=== PATIENT | female | born 1945 | race Caucasian/White ===

== ENCOUNTER 2024-05-29 09:59 | Outpatient (CLI) | payer MEDICARE, SELFPAY ==
--- NOTE | 2024-05-29 09:45 | CT_ITS ---
FINAL REPORT TECHNIQUE: Thin section axial CT with contrast with multiplanar reconstruction This study was performed with techniques to keep radiation doses as low as reasonably achievable, (ALARA). Individualized dose reduction techniques using automated exposure control or adjustment of mA and/or kV according to the patient's size were employed. CLINICAL HISTORY: dyspnea/tachycardia COMPARISON: None FINDINGS: CTA CHEST: Pulmonary vessels enhance in normal fashion without evidence of embolism. Thoracic aorta shows no dissection or aneurysm. No pulmonary mass or infiltrate is present. There is mild scarring or atelectasis in the right lower lobe. There is no significant pleural effusion. There is no significant pericardial effusion. No mediastinal or hilar adenopathy is present. Multiple healing rib fractures are identified posteriorly. IMPRESSION: 1. No evidence of pulmonary embolism Reviewed, Interpreted and Dictated by Miguel Angel Hayden MD Transcribed by Yen Espinoza Authenticated and [facility]
[2024-05-29 10:06] LABS: Coronavirus 19, PCR Not Detected (NotDetected); Influenza A, PCR Not Detected (NotDetected); Influenza B, PCR Not Detected (NotDetected)
--- NOTE | 2024-05-29 10:15 | XR_ITS ---
FINAL REPORT CLINICAL HISTORY: dyspnea/tachycardia FINDINGS: 2 views of the chest were obtained . The heart is normal in size. The mediastinum is within normal limits. The lungs are clear. There is no pneumothorax. Osseous structures are unremarkable. IMPRESSION: No acute cardiopulmonary process. Reviewed, Interpreted and Dictated by Miguel Angel Hayden MD Transcribed by Eulalia Sue Authenticated and [facility]
[2024-05-29 10:18] LABS: Basophils # 0.1 K/mm3 (0-0.2); Basophils % 0.6 % (0.1-2.0); Eosinophils # 0.2 K/mm3 (0.0-0.4); Eosinophils % 1.9 % (0.1-12.0); Hematocrit 38.9 % (37.0-47.0); Hemoglobin 12.7 g/dL (12.2-16.2); Lymphocytes # 1.2 K/mm3 (0.7-4.5); Lymphocytes % 15.6 % (10-50); Mean Corpuscular HGB Conc 32.6 g/dL (31.8-35.4); Mean Corpuscular Hemoglobin 29.6 pg (27.0-31.2); Mean Corpuscular Volume 90.7 fl (81-99); Mean Platelet Volume 8.9 fl (7.4-10.4); Monocytes # 0.8 K/mm3 (0.1-1.0); Monocytes % 10.8 % (1.7-9.3); Neutrophils # 5.4 K/mm3 (1.8-7.8); Neutrophils % 70.7 % (37.0-80.0); Platelet Count 212 K/mm3 (142-424); Red Blood Count 4.29 M/mm3 (4.20-5.40); Red Cell Distribution Width 14.2 % (11.5-17.5); White Blood Count 7.7 K/mm3 (4.8-10.8)
[2024-05-29 10:33] LABS: Alanine Aminotransferase 728 U/L (12-78); Anion Gap 10.7 mEq/L (5-15); Bilirubin,Direct 0.9 mg/dl (0.0-0.4); Bilirubin,Indirect 0.5 mg/dL (0.0-0.9); Bilirubin,Total 1.4 mg/dl (0.2-1.3); Bilirubin,Unconjugated 0.5 mg/dL (0.0-1.1); Blood Urea Nitrogen 21 mg/dl (7-17); Calcium 8.9 mg/dl (8.4-10.2); Carbon Dioxide 24 mmol/L (22.0-30.0); Chloride 106 mmol/L (98-107); Estimated Glomerular Filt Rate 48 ml/min (>60); GFR (African American) 58 ML/MIN (>60); Glucose 120 mg/dl (74-100); Magnesium 1.8 mg/dl (1.6-2.3); Potassium 3.7 mmoL/L (3.5-5.1); Sodium 137 mmol/L (136-145); Total Protein,Serum 6.9 g/dl (6.3-8.2)
[2024-05-29 10:34] LABS: Albumin Level 4.2 g/dl (3.5-5.0); Alkaline Phosphatase 133 U/L (38-126); Chol/HDL Ratio 2.4 (1-3.5); Cholesterol 99 mg/dl (140-200); HDL Cholesterol 42 mg/dl (40-60); Triglycerides 91 mg/dl (30-150); VLDL Cholesterol 18 mg/dL (0-40)
[2024-05-29 10:45] LABS: NT Pro Brain Natriuretic Pep. 166 pg/mL (0-450)
[2024-05-29 10:51] LABS: Aspartate Amino Transferase 800 U/L (14-36); Direct LDL Cholesterol < 30.00 mg/dL (100-129); Troponin I < 0.01 ng/ml (0.00-0.034)
[2024-05-29] MEDS: IOPAMIDOL-370 (76%);100ML BOTTLE 80 ML IV (10:57)
[2024-05-29] MEDS: 0.9 % SODIUM CHLORIDE 50 ML VIAL IV (10:57)
[2024-05-29] MEDS: SODIUM CHLORIDE 0.9% 10ML SYR (RAD ONLY) 10 ML IV (10:57)
[2024-05-29 11:04] LABS: Thyroid Stimulating Hormone 1.59 uIU/mL (0.465-4.68)
[2024-05-29 11:41] LABS: Free T4 (Free Thyroxine) 1.91 ng/dl (0.78-2.19)
[2024-05-29 12:10] LABS: D-Dimer 1.13 ug/mL (0.0-0.5)
== END 2024-05-29 23:59 | disposition home or self-care (01) ==
PROVIDERS: PCP Nurse Practitioner Family; Visit Provider Nurse Practitioner Family
DX: I26.99 Other pulmonary embolism without acute cor pulmonale (principal); R06.00 Dyspnea, unspecified; R00.0 Tachycardia, unspecified; R42 Dizziness and giddiness; M10.9 Gout, unspecified; I10 Essential (primary) hypertension; I82.409 Acute embolism and thrombosis of unspecified deep veins of unspecified lower extremity; R05.9 Cough, unspecified; E78.2 Mixed hyperlipidemia
CPT/HCPCS: 71046; 71275; 80048; 80061; 80076; 83735; 83880; 84439; 84443; 84484; 85025; 85378; 87636; Q9967

== ENCOUNTER 2024-05-29 15:05 | Observation (INO) | payer MEDICARE, SELFPAY ==
[2024-05-29] VITALS (12 sets, daily range): BP systolic 117–156; BP diastolic 67–99; PULSE 105–127; RESP 13–30; TEMP 37.1–37.6; O2SAT 93–96; BMI 26.0; BMI 26.1
--- NOTE | 2024-05-29 15:18 | ECG_ITS ---
APPROVED REPORT Exam: Resting ECG HR:111 bpm ECG Measurements Heart Rate 111 AXES HI 128 P 78 QRSd 77 QRS 68 QT 339 T 80 QTc 405 Conclusion SINUS TACHYCARDIA LOW QRS VOLTAGE IN PRECORDIAL LEADS [QRS DEFLECTION < 1.0 mV IN CHEST LEADS] POSSIBLE INFERIOR MYOCARDIAL INFARCTION , PROBABLY OLD [30 ms Q WAVE IN II/aVF] ABNORMAL RHYTHM ECG UNCONFIRMED REPORT Electronically signed by : NAHEED TIRADO, 05/30/2024 05:53:09
--- NOTE | 2024-05-29 15:25 | US_ITS ---
FINAL REPORT TECHNIQUE: Multiple transverse and longitudinal images CLINICAL HISTORY: transaminitis, hyperbilirubinemia COMPARISON: None FINDINGS: The gallbladder shows no wall thickening, distention or stone disease. No biliary ductal dilatation is appreciated. No fluid collections are seen. Limited portions of the right liver are unremarkable. Right kidney is normal in size. An extrarenal pelvis noted with mild right hydronephrosis. IMPRESSION: Right extrarenal pelvis with mild right hydronephrosis. Reviewed, Interpreted and Dictated by Miguel Angel Hayden MD Transcribed by Estrella Franks Authenticated and [facility]
[2024-05-29 15:26] LABS: Basophils % 0.6 % (0.1-2.0); Eosinophils # 0.1 K/mm3 (0.0-0.4); Eosinophils % 1.5 % (0.1-12.0); Hematocrit 35.9 % (37.0-47.0); Hemoglobin 11.8 g/dL (12.2-16.2); Lymphocytes # 1.4 K/mm3 (0.7-4.5); Lymphocytes % 18.9 % (10-50); Mean Corpuscular HGB Conc 32.9 g/dL (31.8-35.4); Mean Corpuscular Hemoglobin 29.4 pg (27.0-31.2); Mean Corpuscular Volume 89.5 fl (81-99); Mean Platelet Volume 9.1 fl (7.4-10.4); Monocytes # 0.9 K/mm3 (0.1-1.0); Monocytes % 12.7 % (1.7-9.3); Neutrophils # 4.7 K/mm3 (1.8-7.8); Neutrophils % 65.7 % (37.0-80.0); Platelet Count 205 K/mm3 (142-424); Red Blood Count 4.01 M/mm3 (4.20-5.40); Red Cell Distribution Width 14.2 % (11.5-17.5); White Blood Count 7.2 K/mm3 (4.8-10.8)
--- NOTE | 2024-05-29 15:26 | [facility]H.EDGENADL ---
Discharge Plan Disposition Patient Disposition: Admitted Condition: Fair Clinical Impressions Clinical Impression: Transaminitis, Acute UTI Hydronephrosis Qualifiers: Hydronephrosis type: unspecified Qualified Code(s): N13.30 - Unspecified hydronephrosis URI (upper respiratory infection) Qualifiers: URI type: unspecified viral URI Qualified Code(s): J06.9 - Acute upper respiratory infection, unspecified Conjunctivitis Qualifiers: Conjunctivitis type: acute Acute conjunctivitis type: unspecified Laterality: bilateral Qualified Code(s): H10.33 - Unspecified acute conjunctivitis, bilateral Discharge ED Provider: Paulette Skelton General Adult HPI General Chief complaint: Recheck/Abnormal Lab/Rx Stated complaint: sent by bello Gann Time Seen by Provider: 05/29/24 15:09 Mode of Arrival: Wheelchair Source of Information: Patient and Relative Description of Symptoms (Recalled from ER Triage Doc. by RN): States they were seen by Yg and sent to the er for further evaluation related to elevated AST and ALT levels. Patient with no complaints at this time. History of Present Illness HPI narrative: This patient is an 79-year-old female with a history of rheumatoid arthritis, osteoarthritis, hypertension, chronic back pain, peripheral neuropathy presenting to the emergency department for evaluation with concern for abnormal labs. Patient states that she started getting sick on Tuesday with cough, congestion, wheezing. She had 1 day of nausea, vomiting, and diarrhea yesterday, but otherwise has not had any significant abdominal symptoms. She has had significant shortness of breath with exertion and wheezing, so she had been seeing primary care and was referred to cardiology. Cardiology noted concern over the patient's appearance and high heart rate, as she has been tachycardic in the 100s to 1 teens consistently even at rest. They sent patient for outpatient lab evaluation and CTA of the chest, and patient has no blood clot in her lungs or large pneumonia, but she did have significant elevated liver enzymes. This is obtained from medical record review. Patient denies any known problems with her liver. She denies any significant abdominal pain. She does still have her gallbladder. She denies excess Tylenol use, but she does state that she is been taking DayQuil, NyQuil, and an occasional Tylenol as needed. She notes that she is not coming close to exceeding 4000 mg in a day. She is not a drinker and never has been. Aside from the cough, wheezing, dyspnea on exertion, high heart rate, and overall generally feeling unwell with extreme body aches, patient denies any other concerns or complaints at this time. Related Data Home Medications ?Medication ?Instructions ?Recorded ?Confirmed allopurinol 300 mg tablet 300 mg PO DAILY 05/29/24 05/29/24 amitriptyline 100 mg tablet 100 mg PO DAILY 05/29/24 05/29/24 aspirin 81 mg tablet,delayed 81 mg PO DAILY 05/29/24 05/29/24 release cholecalciferol (vitamin D3) 25 25 mcg PO DAILY 05/29/24 05/29/24 mcg (1,000 unit) capsule colchicine 0.6 mg tablet 0.6 mg PO BID 05/29/24 05/29/24 etodolac 200 mg capsule 200 mg PO Q8H PRN Arthritis Pain 05/29/24 05/29/24 metoprolol succinate 50 mg 50 mg PO ONCE 05/29/24 05/29/24 tablet,extended release 24 hr Allergies Allergy/AdvReac Type Severity Reaction Status Date / Time gabapentin Allergy Verified 05/29/24 09:00 pregabalin (From Lyrica) Allergy Verified 05/29/24 09:00 ropinirole Allergy Verified 05/29/24 09:00 [facility] Disclaimer: The information contained in this section may have been updated after the patient was seen, as this information can be updated by other users. Medical History Sinus tachycardia Wheezing Cough Pulmonary emboli Diverticulitis Gout HTN (hypertension) DVT (deep venous thrombosis) Surgical History Femur fracture, right Abnormal colonoscopy History of hysterectomy Family History Father Cancer Brother Cancer Social History (Updated 05/29/24 @ 21:03 by Letty New RN) Smoking Status: Never smoker alcohol intake: never substance use type: denies use current occupational status: retired Travel in the last 8 weeks: Inside the [place] Have you lived/traveled outside US in past 30 days?: No Contact w/someone who lives/traveled outside US past 30 days?: No Exposure to someone with infectious disease in past 14 days?: No Do you have a fever (greater than 100.4 F or 38 C)?: No Have you tested positive for COVID-19: No Exposed to someone with COVID-19 in past 14 days?: No Do you have a sore throat?: No Do you have a cough?: No Do you have any weakness?: No Do you have any diarrhea?: No Are you experiencing any unusual bleeding?: No Do you have any muscle aches/pain?: No Do you have any abdominal pain?: No Are you experiencing loss of taste or smell?: No Other Medical History Have you received the Pneumonia Vaccine: Yes ROS Obtained: Yes All systems reviewed & no additional complaints except as documented Physical Exam General General appearance: alert and in no apparent distress Head Head exam: atraumatic and normocephalic Eye Eye exam: Present PERRL, EOMI, conjunctival redness and conjunctival injection ENT ENT exam: Present normal exam, normal oropharynx, mucous membranes moist and normal external ear exam Neck Neck exam: Present normal inspection, full ROM and trachea midline; Absent tenderness Chest Chest inspection: Present normal inspection and symmetric chest wall rise; Absent tenderness Respiratory Respiratory exam: Present normal lung sounds bilaterally and other (harsh, frequent dry cough); Absent respiratory distress, wheezes, stridor or accessory muscle use Cardiovascular Cardiovascular exam: Present normal rhythm and tachycardia Abdominal Exam Abdominal exam: Present soft; Absent distention, tenderness or guarding Extremities Exam Extremities exam: Present normal inspection, full ROM and normal capillary refill; Absent tenderness or edema Back Exam Back exam: Present normal inspection and full ROM; Absent tenderness Neurological Exam Neurological exam: Present alert, oriented X3, CN II-XII intact and normal gait; Absent motor sensory deficit Psychiatric Psychiatric exam: Present normal affect and normal mood Skin Skin exam: Present warm and dry Medical Decision Making Medical Records Medical records reviewed: Yes I reviewed the patient's medical records. Screening: Per USPSTF and CDC recommendations, given the prevalence of disease in our region, it is our hospital?s policy to screen for HIV and viral Hepatitis for all patients aged 18 and over and those with ongoing risk factors. Magdy Inquiry Pt receiving controlled substance: No Vital Signs: 05/29/24 15:14 05/29/24 15:30 05/29/24 16:04 Temperature 99.0 F Temperature Source Oral Pulse Rate 110 H 115 H Pulse Rate [Radial] 114 H Respiratory Rate 16 20 Blood Pressure 131/75 127/83 Blood Pressure [Right Arm] 117/86 Blood Pressure Mean [Right Arm] 96 Blood Pressure Source [Right Arm] Automatic Cuff Blood Pressure Position [Right Arm] Sitting 02 Sat by Pulse Oximetry 96 94 L 95 Oxygen Delivery Method Room Air Room Air Room Air 05/29/24 16:30 05/29/24 17:00 05/29/24 17:23 Temperature Temperature Source Pulse Rate 105 H 114 H 117 H Pulse Rate [Radial] Respiratory Rate 19 19 Blood Pressure 133/67 133/77 142/82 H Blood Pressure [Right Arm] Blood Pressure Mean [Right Arm] Blood Pressure Source [Right Arm] Blood Pressure Position [Right Arm] 02 Sat by Pulse Oximetry 93 L 94 L 94 L Oxygen Delivery Method Room Air Room Air Room Air 05/29/24 18:00 05/29/24 18:30 05/29/24 19:13 Temperature Temperature Source Pulse Rate 115 H 107 H Pulse Rate [Radial] 127 H Respiratory Rate 16 13 16 Blood Pressure 144/84 H 156/89 H Blood Pressure [Right Arm] Blood Pressure Mean [Right Arm] Blood Pressure Source [Right Arm] Blood Pressure Position [Right Arm] 02 Sat by Pulse Oximetry 96 95 94 L Oxygen Delivery Method Room Air Room Air Room Air 05/29/24 19:44 Temperature 98.7 F Temperature Source Pulse Rate 111 H Pulse Rate [Radial] Respiratory Rate 30 H Blood Pressure 150/89 H Blood Pressure [Right Arm] Blood Pressure Mean [Right Arm] Blood Pressure Source [Right Arm] Blood Pressure Position [Right Arm] 02 Sat by Pulse Oximetry Oxygen Delivery Method Room Air Lab Data Lab results reviewed: Yes I reviewed the patient's lab results. Lab Results 05/29/24 15:18: WBC 7.2, RBC 4.01 L, Hgb 11.8 L, Hct 35.9 L, MCV 89.5, MCH 29.4, MCHC 32.9, RDW 14.2, Plt Count 205, MPV 9.1, Neut % (Auto) 65.7, Lymph % (Auto) 18.9, Winkler % (Auto) 12.7 H, Eos % (Auto) 1.5, Baso % (Auto) 0.6, Neut # (Auto) 4.7, Lymph # (Auto) 1.4, Winkler # (Auto) 0.9, Eos # (Auto) 0.1, Baso # (Auto) 0.0, ESR 38 H, Sodium 135 L, Potassium 3.5, Chloride 104, Carbon Dioxide 21 L, Anion Gap 13.5, BUN 21 H, Creatinine 1.10 H, Estimated Creat Clear 42, Estimated GFR 48 L, Est GFR ( Amer) 58 L, Glucose 124 H, Calcium 8.5, Total Bilirubin 0.7, AST 835 H*, ALT 824 H*, Alkaline Phosphatase 130 H, Total Creatine Kinase 97, Troponin I < 0.01, C-Reactive Protein 121.1 H, NT-Pro-B Natriuret Pep 119, Total Protein 6.6, Albumin 4.0, Globulin 2.6, Albumin/Globulin Ratio 1.5, Lipase 50, Acetaminophen 11, HCV Ab BRITNEY w/Rflx PCR Qn Negative, HIV Ag/Ab Combo Qual Negative 05/29/24 15:32: VBG pH 7.42 H, VBG pCO2 27.3 L, VBG pO2 99.3 H, VBG HCO3 17.2 L, VBG Total CO2 18.0 L, VBG O2 Saturation 97.9 H, VBG Base Excess -7.4 L, VBG Lactic Acid 2.5 H 05/29/24 16:04: Chlamy pneumoniae PCR Not detected, Adenovirus (PCR) Not detected, B. pertussis DNA (PCR) Not detected, Coronavirus OC43 (PCR) Not detected, Coronavirus HKU1 (PCR) Not detected, Coronavirus 229E (PCR) Not detected, SARS-CoV-2 (PCR) Not detected, Coronavirus NL63 (PCR) Not detected, Human Metapneumovir PCR Not detected, Influenza A (H1) PCR Not detected, Influ A (H1N1/09) PCR Not detected, Influenza A (H3) PCR Not detected, Influenza Type A (PCR) Not detected, Influenza Type B (PCR) Not detected, M. pneumoniae (PCR) Not detected, Parainfluenza 1 (PCR) Not detected, Parainfluenza 2 (PCR) Not detected, Parainfluenza 3 (PCR) Not detected, Parainfluenza 4 (PCR) Not detected, RSV (PCR) Not detected, Entero/Rhino (PCR) Not detected 05/29/24 17:05: Urine Color Yellow, Urine Appearance Slightly cloudy, Urine pH 6.0, Ur Specific Mckinney 1.010, Urine Protein Trace A, Urine Glucose (UA) Negative, Urine Ketones Negative, Urine Blood Negative, Urine Nitrate Negative, Urine Bilirubin 3+ A, Urine Urobilinogen 0.2, Ur Leukocyte Esterase 2+ A, Urine RBC Occasional, Urine WBC 20-50, Ur Squamous Epith Cells 5-10, Urine Bacteria 2+ 05/29/24 18:14: Troponin I < 0.01 05/29/24 15:18 05/29/24 15:18 Orders (Tests/Meds): ED MEDICATIONS Generic Name Dose Route Start Last Admin Trade Name Freq PRN Reason Stop Dose Admin Azithromycin 250 mg 05/30/24 09:00 Azithromycin 250mg Tablet PO 06/09/24 08:59 DAILY PROSPER Famotidine 20 mg 05/29/24 21:00 05/29/24 20:46 Famotidine 20mg/2ml Vial IV 06/28/24 20:59 20 mg BID PROSPER Administration Guaifenesin 600 mg 05/29/24 22:00 05/29/24 21:52 Guaifenesin 600 Mg Tab.Er.12h PO 06/28/24 21:59 600 mg BID PROSPER Administration Guaifenesin 10 ml 05/29/24 21:46 Guaifenesin/Dextromethorphan 200mg/20mg 10ml Udc PO 06/28/24 21:45 Q4HP PRN Cough Ceftriaxone Sodium 1 gm/ 50 mls @ 100 mls/hr 05/30/24 09:00 Sodium Chloride IV 06/09/24 08:59 Q24H PROSPER Ketorolac Tromethamine 15 mg 05/29/24 19:58 Ketorolac 30mg/Ml Vial IV 06/03/24 19:57 Q6HP PRN Moderate Pain (4-6) Levalbuterol HCl 1.25 mg 05/29/24 20:04 Levalbuterol 1.25mg/3ml Neb IH 06/28/24 20:03 TIDP PRN Shortness Of Breath Morphine Sulfate 2 mg 05/29/24 19:58 Morphine 2mg/Ml Syringe IV 06/28/24 19:57 Q2HP PRN Severe Pain (7-10) Ondansetron HCl 4 mg 05/29/24 19:58 Ondansetron 4mg/2ml Vial IV 06/28/24 19:57 Q8HP PRN Nausea Sodium Chloride 8 ml 05/29/24 19:58 Sodium Chloride 0.9% 10ml Vial IV 06/28/24 19:57 NEEDED PRN dilute famotidine Tobramycin Sulfate 0.05 ml 05/29/24 20:05 05/29/24 20:46 Tobramycin Opthalmic Solution 5ml OP 05/29/24 20:06 Not Given ONCE ONE Discontinued Medications Generic Name Dose Route Start Last Admin Trade Name Freq PRN Reason Stop Dose Admin Amitriptyline HCl 100 mg 05/29/24 17:12 05/29/24 17:56 Amitriptyline 50mg Tablet PO 05/29/24 17:13 100 mg ONCE ONE Administration Erythromycin 0.25 gm 05/29/24 17:11 05/29/24 17:57 Erythromycin Base 3.5 Gm Oint...G. OP 05/29/24 17:12 0.25 gm ONCE ONE Administration Ceftriaxone Sodium 2 gm/ 100 mls @ 200 mls/hr 05/29/24 18:51 05/29/24 19:37 Sodium Chloride IV 05/29/24 19:20 200 mls/hr ONCE ONE Administration Iopamidol 75 ml 05/29/24 17:16 05/29/24 17:18 Iopamidol-370 (76%);100ml Bottle IV 05/29/24 17:17 75 ml ONCE ONE Administration Sodium Chloride 10 ml 05/29/24 17:16 05/29/24 17:18 Sodium Chloride 0.9% 10ml Syr (Rad Only) IV 05/29/24 17:17 10 ml ONCE ONE Administration ORDERS Category Date Time Status CT abdomen pelvis w con Stat Cat Scan 05/29/24 16:52 Completed US RUQ [US abdomen limited] Stat Exams 05/29/24 15:25 Completed Acetaminophen Stat Lab 05/29/24 15:18 Completed BNP [NT Pro Brain Natriuretic Pep.] Stat Lab 05/29/24 15:18 Completed CK [Creatine Kinase] Stat Lab 05/29/24 15:18 Completed CRP [C-Reactive Protein] Stat Lab 05/29/24 15:18 Completed Complete Blood Count Auto Diff Stat Lab 05/29/24 15:18 Completed Comprehensive Metabolic Panel Stat Lab 05/29/24 15:18 Completed ESR [Erythrocyte Sedimentation Rate] Stat Lab 05/29/24 15:18 Completed Full Resp Panel w/COVID ([facility]) Routine Lab 05/29/24 16:04 Completed HIV Combo Stat Lab 05/29/24 15:18 Completed Hepatitis C Ab Qual. W/ RFX Stat Lab 05/29/24 15:18 Completed Hepatitis Panel Stat Lab 05/29/24 15:18 Received Lipase Stat Lab 05/29/24 15:18 Completed Trop I [Troponin I] Stat Lab 05/29/24 15:18 Completed Troponin I Q3H Lab 05/29/24 18:14 Completed Troponin I Q3H Lab 05/29/24 21:45 Completed UA [Urinalysis and Microscopic] Stat Lab 05/29/24 17:05 Completed Urine Culture Stat Micro 05/29/24 17:05 Received VBG [Venous Blood Gas] Stat RT 05/29/24 15:32 Completed ECG Data Tracing #1: I reviewed this ECG and interpreted as documented below: Sinus tachycardia with a ventricular to [address] changes concerning for ischemia. Normal axis and intervals ECG initial impression date: 05/29/24 ECG initial impression time: 15:20 Medical Decision Narrative: In summary, this patient is a 79-year-old female presenting to the Emergency Department for evaluation of cough, congestion, dyspnea on exertion, body aches since Tuesday and abnormal labs obtained by cardiology today (transaminitis). Differential diagnoses considered include but are not limited to viral hepatitis, acetaminophen toxicity, cholecystitis, biliary outflow obstruction, rhabdomyolysis, among others. Ruling out the most morbid conditions drove assessment. It should be noted patient's history includes hypertension, rheumatoid arthritis, restless leg syndrome, chronic back pain which may or may not be at goal therapy. This complicates all aspects of care by increasing patient's risk for morbidity. I reviewed patient's past medical records and noted outpatient evaluation by cardiology, outpatient labs, chest x-ray and CTA of the chest obtained earlier today. Please see HPI for further details. Patient has significant transaminitis, no PE, no large focal pneumonia On exam, the patient is lying in bed in no acute distress. She is tachycardic but otherwise vitals are reassuring on cardiac telemetry. She has dry cough and bilateral conjunctival injection and irritation. She is not tachypneic, hypoxic, or in any distress. Cardiopulmonary exam demonstrates clear lung sounds, abdominal exam is benign with no focal tenderness. no significant lower extremity edema. Workup included lab evaluation including repeat CMP, hepatitis panel, CK, troponin, BNP, respiratory panel, acetaminophen level. I also obtained a right upper quadrant ultrasound. Patient denies excessive use of Tylenol, stating she only has used it maybe once a day as well as small doses of NyQuil and DayQuil. She notes that she is not coming close to a daily max of 4000 mg. She is not concerned for Tylenol toxicity. EKG obtained demonstrates sinus tachycardia but otherwise reassuring. I independently interpreted right upper quadrant ultrasound prior to the radiologist read and noted right-sided hydronephrosis, but the gallbladder looks normal. Please see their read for final interpretation. Given hydronephrosis without known etiology, I decided to obtain CT abdomen and pelvis with IV contrast. I independently interpreted this prior to radiology read and noted hydronephrosis without obvious obstructive stone. Please see radiology read for final interpretation. Labs were obtained that demonstrated mild anemia. She has no significant leukocytosis. She has mild respiratory alkalosis, mildly elevated lactic acid. Creatinine mildly elevated at 1.1 without baseline for comparison. Liver enzymes remain in the 800s, bilirubin normal at 0.7. Inflammatory markers are elevated. Full respiratory panel is negative. urinalysis is concerning for infection with 2+ leukocyte esterase, 20-50 white blood cells, 2+ bacteria. I ordered her home amitriptyline at her recommendation, and I also ordered erythromycin ophthalmic ointment for her eyes. I ordered IV Rocephin for the patient's UTI. Given her significant transaminitis, I feel she would benefit from admission for further evaluation and management. I had an interactive discussion with the hospitalist who admitted the patient in stable condition. Critical Care Critical Care Time Critical Care Time: No
[2024-05-29 15:40] LABS: VBG Base Excess -7.4 mmol/L (-2.4-2.3); VBG HCO3 17.2 mmol/L (23-30); VBG Oxygen Saturation 97.9 % (50-70); VBG PCO2 27.3 mmol/L (35-51); VBG PH 7.42 mmol/L (7.31-7.41); VBG PO2 99.3 mmol/L (28-40)
[2024-05-29 15:52] LABS: Lactate Venous 2.5 mmol/L (0.4-2.0)
[2024-05-29 16:01] LABS: NT Pro Brain Natriuretic Pep. 119 pg/mL (0-450)
[2024-05-29 16:11] LABS: Adenovirus,PCR Not Detected (NotDetected); Bordetella Pertussis Not Detected (NotDetected); Chlamydophila Pneumoniae, PCR Not Detected (NotDetected); Coronavirus 19, PCR Not Detected (NotDetected); Coronavirus 229E Not Detected (NotDetected); Coronavirus NL63 Not Detected (NotDetected); Coronavirus OC43 Not Detected (NotDetected); Coronovirus HKU1,PCR Not Detected (NotDetected); Human Metapneumovirus Not Detected (NotDetected); Influenza A, PCR Not Detected (NotDetected); Influenza AH1, 2009 Not Detected (NotDetected); Influenza AH1, PCR Not Detected (NotDetected); Influenza AH3,PCR Not Detected (NotDetected); Influenza B, PCR Not Detected (NotDetected); Mycoplasma Pneumoniae, PCR Not Detected (NotDetected); Parainfluenza 1, PCR Not Detected (NotDetected); Parainfluenza 2, PCR Not Detected (NotDetected); Parainfluenza 3, PCR Not Detected (NotDetected); Parainfluenza 4, PCR Not Detected (NotDetected); Respiratory Syncytial Virus Not Detected (NotDetected); Rhinovirus/Enterovirus Not Detected (NotDetected)
[2024-05-29 16:28] LABS: Creatine Kinase 97 U/L (30-135)
[2024-05-29 16:34] LABS: HIV Combo NEGATIVE (Negative)
[2024-05-29 16:41] LABS: Hepatitis C Ab Qual. W/ RFX NEGATIVE (Negative)
[2024-05-29 16:46] LABS: Chloride 104 mmol/L (98-107); Sodium 135 mmol/L (136-145)
[2024-05-29 16:47] LABS: Erythrocyte Sedimentation Rate 38 mm/hr (0-30); Potassium 3.5 mmoL/L (3.5-5.1)
[2024-05-29 16:49] LABS: Alkaline Phosphatase 130 U/L (38-126); Bilirubin,Total 0.7 mg/dl (0.2-1.3); Blood Urea Nitrogen 21 mg/dl (7-17); Carbon Dioxide 21 mmol/L (22.0-30.0); Creatinine Clearance Estimated 42 mL/min (50-200); Estimated Glomerular Filt Rate 48 ml/min (>60); GFR (African American) 58 ML/MIN (>60); Lipase 50 U/L (23-300); Total Protein,Serum 6.6 g/dl (6.3-8.2)
[2024-05-29 16:50] LABS: Acetaminophen 11 ug/ml (10-30); Calcium 8.5 mg/dl (8.4-10.2); Glucose 124 mg/dl (74-100)
--- NOTE | 2024-05-29 16:52 | CT_ITS ---
PROCEDURE INFORMATION: Exam: CT Abdomen And Pelvis With Contrast Exam date and time: 05/29/2024 5:16 PM Age: 79 years old Clinical indication: Abnormal findings; Abnormal radiologic finding of the abdomen; Radiologic exam and body structure: Abd US; Additional info: Abnormal renal US, transaminitis TECHNIQUE: Imaging protocol: Computed tomography of the abdomen and pelvis with contrast. Radiation optimization: All CT scans at this facility use at least one of these dose optimization techniques: automated exposure control; mA and/or kV adjustment per patient size (includes targeted exams where dose is matched to clinical indication); or iterative reconstruction. Contrast material: ISOVUE; Contrast volume: 75 ml; Contrast route: IV; COMPARISON: US ABDOMEN LIMITED 05/29/2024 3:29 PM FINDINGS: Lungs: Dependent bilateral lung base opacities favor atelectasis. Diaphragm: A small sliding hiatal hernia is present. Liver: There is diffuse hypoattenuation of the liver compatible with mild hepatic steatosis. Gallbladder and biliary ducts: Normal. No calcified stones. No ductal dilation. Pancreas: Normal. No ductal dilation. Spleen: Normal. No splenomegaly. Adrenal glands: Normal. No mass. Kidneys and ureters: Left renal Bosniak 1 cystic lesion that is homogeneous and fluid density (-9-20 HU), no septations or calcifications, having moe smooth and thin. Measurement is 0.8 cm. No follow-up recommended. Stomach and bowel: Diverticula are scattered throughout the colon without inflammatory changes. Appendix: No evidence of appendicitis. 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 Vasculature: Moderate calcific atherosclerotic disease of the abdominal aorta without aneurysmal dilatation is present. Lymph nodes: Unremarkable. No enlarged lymph nodes. Urinary bladder: Unremarkable as visualized. Reproductive: Unremarkable as visualized. Bones/joints: Postsurgical changes of the right hip compatible with IM nail and cannulated screw fixation of a healed femoral neck fracture. Moderate loss of intervertebral disc space with degenerative changes involving lower thoracic and lumbar spine greatest from L3 through L5. Soft tissues: See Bones/joints finding. 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 COMMENTS: Consistent with the [employer]'s Incidental Findings Committee white paper (J Am Beverly Radiol 2018): Any incidental renal lesion less than 1 cm or classified as too small to characterize, or any incidental cystic renal lesion characterized as simple-appearing, is likely benign. No follow-up imaging is recommended for these lesions per consensus recommendations based on imaging criteria.
[2024-05-29 17:05] LABS: Anion Gap 13.5 mEq/L (5-15); Troponin I < 0.01 ng/ml (0.00-0.034)
[2024-05-29 17:12] LABS: Alanine Aminotransferase 824 U/L (12-78)
[2024-05-29 17:14] LABS: Aspartate Amino Transferase 835 U/L (14-36)
[2024-05-29 17:17] LABS: Microscopic, Urine URINE MICROSCOPIC (MICROSCOPIC)
[2024-05-29 17:17] LABS: Albumin/Globulin Ratio 1.5 (1.1-1.8); Globulin 2.6 g/dL (1.3-3.2)
[2024-05-29] MEDS: IOPAMIDOL-370 (76%);100ML BOTTLE 75 ML IV (17:18)
[2024-05-29] MEDS: SODIUM CHLORIDE 0.9% 10ML SYR (RAD ONLY) 10 ML IV (17:18)
[2024-05-29] MEDS: AMITRIPTYLINE 50MG TABLET 100 MG PO (17:56)
[2024-05-29] MEDS: ERYTHROMYCIN BASE 3.5 GM OINT...G. OP (17:57)
--- NOTE | 2024-05-29 18:05 | PC.NURSE ---
rounded on pt, no needs at this time.
[2024-05-29 18:27] LABS: Appearance,Urine Slightly Cloudy (Clear); Color,Urine Yellow (Yellow); Protein,Urine Trace (Negative)
[2024-05-29 18:28] LABS: Blood, Urine Negative (Negative); Glucose,Urine (UA) Negative (Negative); Ketones,Urine Negative (Negative); Nitrate,Urine Negative (Negative)
[2024-05-29 18:29] LABS: Bacteria,Urine 2+ /lpf; Bilirubin,Urine 3+ (Negative); Leukocyte Esterase,Urine 2+ (Negative); RBC,Urine Occasional #/hpf (0-3); Urobilinogen,Urine 0.2 EU/dl (0.2); WBC,Urine 20-50 #/hpf (0-3)
--- NOTE | 2024-05-29 18:52 | PC.NURSE ---
I notified HS that the pt is being admitted to for transaminitis.
[2024-05-29 19:18] LABS: Troponin I < 0.01 ng/ml (0.00-0.034)
[2024-05-29] MEDS: CEFTRIAXONE SODIUM 2 GM in 0.9 % SODIUM CHLORIDE 100 ML IV (19:37)
[2024-05-29 19:49] LABS: Reflex Lactic Add Lactic Reflex
--- NOTE | 2024-05-29 19:53 | P.HP_ITS ---
<Statement entered by Stuart Temple MD - 05/30/24 17:23> Rounded on patient after nurse practitioner. Personally examined and interviewed patient. Agree with exam findings and care plan as documented. Unclear etiology at this time. Concern for viral illness. Will add measles panel due to cough, coryza, conjunctivitis. GI evaluating for hepatitis. Continuing empiric antibiotics. CBC, CMP, magnesium ordered for the morning. Transaminitis with AST and ALT above 800. No pain on initial exam. Continues to necessitate inpatient management. History of Present Illness *Admission Date: 05/29/24 *Reason for visit:: Elevated liver functions, urinary tract infection, cough with upper respira *History of present illness: This 79-year-old female, that is a non-smoker nondrinker. Has had increasing swollen eyes cough starting on Tuesday progressively worsening. She also has some nausea and vomiting. Had diarrhea yesterday but notes that she has had problems controlling her bowels for a couple of months now. Patient was noted with 8 fractured ribs back last fall was treated with antibiotics and ended up with a PE. I have no documentation of my computer system about this but the patient and family let me know that everything had resolved Patient also takes care of of a great grandchild that was 4 years old. The family notes that most of them have been ill for about 2 weeks with upper respiratory viral type symptoms. The patient has noted she has been having significant shortness of breath with exertion and wheezing and was seen by cardiology. Patient also noted with urinary tract infection, swollen edematous eyes with red conjunctivitis and drainage. Long history of rheumatoid or osteoarthritis with nodules to the fingers Long history of gout. Patient on medication for pain and gout that can interfere with liver function. Patient is on chronic beta- boyd. Do agree with the ER doctor and Dr. Temple that the patient needs to be admitted. Will place her on the floor and keep her on monitoring analyst related to tachycardia and frequent PVCs, plan to repeat labs looking for source of infection. Will hold NSAIDs and gout medications as in rare cases they can affect liver function. Will check PT/INR and vitamin K levels. [facility] Disclaimer: The information contained in this section may have been updated after the devi ent was seen, as this information can be updated by other users. Medical History Sinus tachycardia Wheezing Cough Pulmonary emboli Diverticulitis Gout HTN (hypertension) DVT (deep venous thrombosis) Surgical History Femur fracture, right Abnormal colonoscopy History of hysterectomy Family History Father Cancer Brother Cancer Social History (Updated 05/29/24 @ 21:03 by Letty New RN) Smoking Status: Never smoker alcohol intake: never substance use type: denies use current occupational status: retired Travel in the last 8 weeks: Inside the [place] Have you lived/traveled outside US in past 30 days?: No Contact w/someone who lives/traveled outside US past 30 days?: No Exposure to someone with infectious disease in past 14 days?: No Do you have a fever (greater than 100.4 F or 38 C)?: No Have you tested positive for COVID-19: No Exposed to someone with COVID-19 in past 14 days?: No Do you have a sore throat?: No Do you have a cough?: No Do you have any weakness?: No Do you have any diarrhea?: No Are you experiencing any unusual bleeding?: No Do you have any muscle aches/pain?: No Do you have any abdominal pain?: No Are you experiencing loss of taste or smell?: No Other Medical History Have you received the Flu Vaccine for this season: Yes Have you received the Pneumonia Vaccine: Yes Review of Systems Review of Systems Review of systems:: pertinent systems reviewed and negative unless documented below Review of systems (narrative): Talk with the patient and family in the room, quite a delight to talk to very interactive. Patient noting that she has had all of her updated immunizations that she can remember she needed She notes a history of having diarrhea have not been able to control her bowels for approximately 2 months but urine is in good control. Patient notes there has been no significant weight changes in the past 6 months Constitutional Constitutional: Reports as per HPI, Reports body ache(s), Reports fatigue and Reports weakness Eyes Eyes: Reports as per HPI, Reports irritation and Reports eye pain Comments: Red puffy eyes irritated conjunctive for 3 to 4 days and ENT Ears, Nose, Mouth, and Throat: Reports as per HPI and Reports post nasal drip Comments: Patient notes her voice is a little raspy but denies sore throat *Cardiovascular Cardiovascular: Reports as per HPI and Reports dyspnea Comments: Patient denies chest pain *Respiratory Respiratory: Reports as per HPI, Reports cough, Reports dyspnea and Reports wheezing Comments: Patient notes showing symptoms of upper respiratory infection for the last several days *Gastrointestinal Gastrointestinal: Reports as per HPI, Reports change in stool character and Reports fecal incontinence *Genitourinary Genitourinary: Reports as per HPI *Musculoskeletal Musculoskeletal: Reports as per HPI and Reports myalgias Comments: Noting that the patient has several nodules to the joints of the fingers. Long history of gout and arthritis Integumentary/Breasts Skin/Breast: Reports as per HPI Comments: Patient denies any recent unusual bruising, notes sometimes she wakes up with small scratch bleeding bennett on her forearms unsure why *Neurologic Neurologic: Reports as per HPI and Reports weakness Comments: Denies any changes in balance or gait. Psychiatric Psychiatric: Reports as per HPI Comments: Patient with family in room they interact well seem great supportive of each other Endocrine Endocrine: Reports fatigue Hematologic/Lymphatic Hematologic/Lymphatic: Reports as per HPI Allergic/Immunologic Allergic/Immunologic: Reports as per HPI and Reports wheezing Meds Home Medications and Allergies Home Medications ?Medication ?Instructions ?Recorded ?Confirmed ?Type allopurinol 300 mg tablet 300 mg PO DAILY 05/29/24 05/29/24 History amitriptyline 100 mg tablet 100 mg PO DAILY 05/29/24 05/29/24 History aspirin 81 mg tablet,delayed 81 mg PO DAILY 05/29/24 05/29/24 History release cholecalciferol (vitamin D3) 25 25 mcg PO DAILY 05/29/24 05/29/24 History mcg (1,000 unit) capsule colchicine 0.6 mg tablet 0.6 mg PO BID 05/29/24 05/29/24 History etodolac 200 mg capsule 200 mg PO Q8H PRN Arthritis Pain 05/29/24 05/30/24 History metoprolol succinate 50 mg 50 mg PO DAILY 05/29/24 05/30/24 History tablet,extended release 24 hr New Prescriptions to Start Prescriptions: Allergies Allergy/AdvReac Type Severity Reaction Status Date / Time gabapentin Allergy Verified 05/29/24 09:00 pregabalin (From Lyrica) Allergy Verified 05/29/24 09:00 ropinirole Allergy Verified 05/29/24 09:00 Exam Data for Last 24 hours Vital signs and Labs for Last 24 Hours: Temp Pulse Resp BP Pulse Ox O2 Del Method 98.7 F 111 H 30 H 150/89 H 95 Room Air 05/29/24 19:44 05/29/24 19:44 05/29/24 19:44 05/29/24 19:44 05/29/24 18:30 05/29/24 19:44 Laboratory Results - last 24 hr 05/29/24 15:18: WBC 7.2, RBC 4.01 L, Hgb 11.8 L, Hct 35.9 L, MCV 89.5, MCH 29.4, MCHC 32.9, RDW 14.2, Plt Count 205, MPV 9.1, Neut % (Auto) 65.7, Lymph % (Auto) 18.9, [place] % (Auto) 12.7 H, Eos % (Auto) 1.5, Baso % (Auto) 0.6, Neut # (Auto) 4.7, Lymph # (Auto) 1.4, [place] # (Auto) 0.9, Eos # (Auto) 0.1, Baso # (Auto) 0.0, ESR 38 H, Sodium 135 L, Potassium 3.5, Chloride 104, Carbon Dioxide 21 L, Anion Gap 13.5, BUN 21 H, Creatinine 1.10 H, Estimated Creat Clear 42, Estimated GFR 48 L, Est GFR ( Amer) 58 L, Glucose 124 H, Calcium 8.5, Total Bilirubin 0.7, AST 835 H*, ALT 824 H*, Alkaline Phosphatase 130 H, Total Creatine Kinase 97, Troponin I < 0.01, NT-Pro-B Natriuret Pep 119, Total Protein 6.6, Albumin 4.0, Globulin 2.6, Albumin/Globulin Ratio 1.5, Lipase 50, Acetaminophen 11, HCV Ab BRITNEY w/Rflx PCR Qn Negative, HIV Ag/Ab Combo Qual Negative 05/29/24 15:32: VBG pH 7.42 H, VBG pCO2 27.3 L, VBG pO2 99.3 H, VBG HCO3 17.2 L, VBG Total CO2 18.0 L, VBG O2 Saturation 97.9 H, VBG Base Excess -7.4 L, VBG Lactic Acid 2.5 H 05/29/24 16:04: Chlamy pneumoniae PCR Not detected, Adenovirus (PCR) Not detected, B. pertussis DNA (PCR) Not detected, Coronavirus OC43 (PCR) Not detected, Coronavirus HKU1 (PCR) Not detected, Coronavirus 229E (PCR) Not detected, SARS-CoV-2 (PCR) Not detected, Coronavirus NL63 (PCR) Not detected, Human Metapneumovir PCR Not detected, Influenza A (H1) PCR Not detected, Influ A (H1N1/09) PCR Not detected, Influenza A (H3) PCR Not detected, Influenza Type A (PCR) Not detected, Influenza Type B (PCR) Not detected, M. pneumoniae (PCR) Not detected, Parainfluenza 1 (PCR) Not detected, Parainfluenza 2 (PCR) Not detected, Parainfluenza 3 (PCR) Not detected, Parainfluenza 4 (PCR) Not detected, RSV (PCR) Not detected, Entero/Rhino (PCR) Not detected 05/29/24 17:05: Urine Color Yellow, Urine Appearance Slightly cloudy, Urine pH 6.0, Ur Specific [place] 1.010, Urine Protein Trace A, Urine Glucose (UA) Negative, Urine Ketones Negative, Urine Blood Negative, Urine Nitrate Negative, Urine Bilirubin 3+ A, Urine Urobilinogen 0.2, Ur Leukocyte Esterase 2+ A, Urine RBC Occasional, Urine WBC 20-50, Ur Squamous Epith Cells 5-10, Urine Bacteria 2+ 05/29/24 18:14: Troponin I < 0.01 I & O for Last 24 hours: Intake & Output 05/27/24 05/28/24 05/29/24 05/30/24 05:59 05:59 05:59 05:59 Weight 147 lb Radiology Reports for the Last 24 Hours: Radiology shows some hydronephrosis possible little bit of stenosis in one of the kidneys., That the liver looks relatively normal some fatty liver infiltrat es gallbladder appears normal but quite large. Really no acute findings Constitutional Constitutional: mild distress, average body habitus and cooperative *Routine HEENT Exam Head: Present normocephalic and atraumatic Eye: Present EOMI, PERRL, normal accommodation, scleral injection, periorbital swelling and periorbital tenderness ENT: Present mucous membranes moist, oropharynx clear and other (Small amount of white postnasal drip) *Routine Neck Exam Neck: Present supple, full ROM and trachea midline Comments: No abnormal lymph nodes found Routine Chest/Breast/Axilla Exam Comments: No chest wall tenderness found patient reports no difficulty or draining from breast *Routine Respiratory Exam Respiratory: Present decreased breath sounds, CTA bilaterally, normal respiratory effort, able to speak in complete sentences and symmetric chest movement Comments: Did not hear any wheezing patient been laying in bed she is able to take a deep breath but on deep inspiration has coughing fit. *Routine Cardiovascular Exam Cardiovascular: Present RRR, Normal S1, Normal S2 and tachycardia Comments: Patient is tacky with several PVCs on monitor but basically with a regular rhythm *Routine Abdominal Exam Abdominal: Present soft and normoactive bowel sounds Comments: Examined the abdomen found no tenderness or enlarged organs *Routine Rectal Exam Rectal:: deferred *Routine Genitalia Exam Genitalia:: deferred *Routine Extremities Exam Extremities: Present pulses intact and normal capillary refill Comments: Examination of arms or legs find normal extremities. Good capillary refill no edema Routine Back/Spine/Pelvis Exam Back/Spine: Present full ROM Comments: Patient just noted generalized lower back pain but nothing new. Is able to sit up and twist from [id number] without difficulty did not stand her during exam *Routine Skin Exam Skin: Present intact, dry and warm Comments: No wounds or abnormal bruising found *Routine Neurological Exam Neurological: Present alert, oriented X3, CN II-XII intact, normal reflexes, normal tone, vision grossly intact, hearing grossly intact and normal speech Comments: No neurological deficits found Routine Psychiatric Exam Psychiatric: Present normal affect, normal thought process, cooperative, good insight and good judgment Comments: Very friendly lady easy to engage H&P: Result Impressions 1. Viral syndrome with conjunctivitis, 2. Abnormal liver function with history of not been able to clear out bowels for couple month 3. Long history of gout and arthritis. Medications that could affect liver function over long periods of time 4. Tachycardia with PVCs Imaging and Cardiology CT scan - abdomen: Status: image reviewed by me Additional comments: Some hydronephrosis of the kidney. But really the abdominal exam appears to be normal there is does not appear to be anything acute Assessment and Plan *Assessment and plan (1) Abnormal liver function: Status: Acute Category: Medical Code(s): R94.5 - Abnormal results of liver function studies (2) URI (upper respiratory infection): Status: Acute Qualifiers: URI type: unspecified viral URI Qualified Code(s): J06.9 - Acute upper respiratory infection, unspecified Category: Medical Code(s): J06.9 - Acute upper respiratory infection, unspecified (3) Acute UTI: Status: Acute Category: Medical Code(s): N39.0 - Urinary tract infection, site not specified (4) Cough: Status: Acute Qualifiers: Cough type: acute Qualified Code(s): R05.1 - Acute cough Category: Medical Code(s): R05.9 - Cough, unspecified (5) Conjunctivitis: Status: Acute Qualifiers: Acute conjunctivitis type: unspecified Conjunctivitis type: acute Laterality: bilateral Qualified Code(s): H10.33 - Unspecified acute conjunctivitis, bilateral Category: Medical Code(s): H10.9 - Unspecified conjunctivitis (6) Hydronephrosis: Status: Acute Qualifiers: Hydronephrosis type: unspecified Qualified Code(s): N13.30 - Unspecified hydronephrosis Category: Medical Code(s): N13.30 - Unspecified hydronephrosis (7) Tachycardia: Status: Acute Category: Medical Code(s): R00.0 - Tachycardia, unspecified (8) HTN (hypertension): Status: Acute Qualifiers: Hypertension type: primary hypertension Qualified Code(s): I10 - Essential (primary) hypertension Category: Medical Code(s): I10 - Essential (primary) hypertension Plan 1. Patient will be admitted to the floor due to her condition we will keep on constant telemetry and pulse ox.. Question cause of this upper respiratory infection with conjunctivitis appears to be viral syndrome.. 2. Elevated liver function test unknown cause checking for hepatitis question whether viral in nature. Also stopping her gout medicine and her pain medicine. As both of those in rare occasions can cause liver damage. 3. Will continue to monitor labs add antibiotic tobramycin for both eyes in case this is bacterial conjunctivitis. Continue on other antibiotics in cases there is an antibiotic cause for this workup the loose stool which she has been having a problem with to find out if there is any bacterial infection in the stool. 4. At this time the patient does feel bad but she is stable., We will keep her closely monitored because unsure of what is going on to make sure she is not decompensating since she is really only started to become ill since Tuesday. Also noting mild hydronephrosis of one of the kidneys. Appears to be chronic is probably not part of this. Will have to do later on follow-up with urology for them to evaluate if anything needs to be done for it.
--- NOTE | 2024-05-29 20:23 | PC.NURSE ---
Patient arrived to floor via wheelchair from ED at 19:51.
[2024-05-29] MEDS: FAMOTIDINE 20MG/2ML VIAL 20 MG IV (20:46)
[2024-05-29 21:17] LABS: Lactic Acid Follow Up (RFLX 1) 1.2 mmol/L (0.7-2.1)
[2024-05-29] MEDS: LEVALBUTEROL 1.25MG/3ML NEB 1.25 MG IH (21:47)
[2024-05-29] MEDS: guaiFENesin 600 MG TAB.ER.12H PO (21:52)
[2024-05-29 23:02] LABS: C-Reactive Protein 121.1 mg/L (0-4)
[2024-05-29 23:41] LABS: Troponin I < 0.01 ng/ml (0.00-0.034)
[2024-05-30] VITALS (10 sets, daily range): BP systolic 125–135; BP diastolic 66–92; PULSE 85–122; RESP 16–20; TEMP 36.8–37.7; O2SAT 91–95; BMI 26.4
[2024-05-30] MEDS: GUAIFENESIN/DEXTROMETHORPHAN 200MG/20MG 10ML UDC 10 ML PO ×2 (00:12→04:37)
--- NOTE | 2024-05-30 04:07 | PC.NURSE ---
Addendum entered by Letty New RN 05/30/24 06:27: Patient's daughter stated this morning that she noticed the patient was beginning to have some confusion. Upon initial assessment this shift, the patient was alert and oriented x4. However, the daughter stated that the patient was becoming acutely disoriented, specifically about where she was at ( home instead of hospital), and she talked during her sleep. Original Note: Ms Tigist Crain was newly admitted this shift on behalf of the documented diagnoses transaminitis, conjunctivitis, and a UTI. ALT: 824 + AST: 835. Patient's eyes were assessed; eyelids were red and swollen; discharge from eyes noted to be yellow in color. An antibiotic ointment was applied in the ER for the patient (ordered ointment Tobrex -upon arrival to the second floor- was not available to be given this shift); sterile normal saline flushes were provided to cleanse the patient's conjunctiva. Intravenous Pepcid and Mucinex was administered per MAR this shift. Robitussin DM was given once per MAR for patient's persistent, dry cough, post receiving PRN Xopenex (at 21:47) this shift. Oxygen saturations > 90% on room air. Admission assessments and home medication reconciliation were completed by me. Upon auscultation of her lungs, diminished but clear lung sounds were heard; heart and bowel sounds were within normal findings. Sinus tachycardia on telemetry. Patient also reported having diarrhea recently. However, the patient has not had a bowel movement this shift, therefore diarrhea/stool sample remains uncollected thus far; she verbalized an understanding of the significance for obtaining a stool sample, when possible. Patient reported that she has a hiatal hernia that occasionally creates difficulty with swallowing. Nodules noted to patient's phalanges (hands/feet). Patient has moderate swelling in her bilateral lower extremities as well. Patient ambulates with at least x1 assistance due to an unsteady gait; a walker was provided for the patient because she is used to using a walker at home as well. At this time, the patient is resting in bed with eyes closed and respirations are even/unlabored. She does not have any further complaints. Her daughter has remained at the bedside this shift. No acute changes noted thus far. Call light within reach.
[2024-05-30 07:13] LABS: Eosinophils # 0.1 K/mm3 (0.0-0.4); Monocytes # 0.9 K/mm3 (0.1-1.0)
[2024-05-30 07:14] LABS: Albumin Level 3.6 g/dl (3.5-5.0); Albumin/Globulin Ratio 1.4 (1.1-1.8); Alkaline Phosphatase 106 U/L (38-126); Anion Gap 8.3 mEq/L (5-15); Aspartate Amino Transferase 641 U/L (14-36); Bilirubin,Total 0.7 mg/dl (0.2-1.3); Blood Urea Nitrogen 16 mg/dl (7-17); Calcium 8.6 mg/dl (8.4-10.2); Carbon Dioxide 24 mmol/L (22.0-30.0); Chloride 105 mmol/L (98-107); Chol/HDL Ratio 3.8 (1-3.5); Cholesterol 98 mg/dl (140-200); Creatinine Clearance Estimated 47 mL/min (50-200); Estimated Glomerular Filt Rate 53 ml/min (>60); GFR (African American) 64 ML/MIN (>60); Gamma Glutamyl Transpeptidase 75 U/L (12-43); Globulin 2.6 g/dL (1.3-3.2); Glucose 129 mg/dl (74-100); HDL Cholesterol 26 mg/dl (40-60); Magnesium 1.6 mg/dl (1.6-2.3); Potassium 3.3 mmoL/L (3.5-5.1); Sodium 134 mmol/L (136-145); Total Protein,Serum 6.2 g/dl (6.3-8.2); Triglycerides 132 mg/dl (30-150); VLDL Cholesterol 26 mg/dL (0-40)
[2024-05-30 07:15] LABS: Lactic Acid 1.3 mmol/L (0.7-2.1)
[2024-05-30 07:20] LABS: INR 1.16 (0.9-1.1); Prothrombin Time 12.8 seconds (10.1-12.5)
[2024-05-30 07:22] LABS: Alanine Aminotransferase 812 U/L (12-78)
[2024-05-30 07:25] LABS: Direct LDL Cholesterol 38.79 mg/dL (100-129)
[2024-05-30 07:29] LABS: Basophils % 0.6 % (0.1-2.0); Eosinophils % 1.6 % (0.1-12.0); Hematocrit 32.2 % (37.0-47.0); Lymphocytes # 1.2 K/mm3 (0.7-4.5); Lymphocytes % 18.4 % (10-50); Mean Corpuscular HGB Conc 32.6 g/dL (31.8-35.4); Mean Corpuscular Hemoglobin 29.1 pg (27.0-31.2); Mean Corpuscular Volume 89.2 fl (81-99); Mean Platelet Volume 9.6 fl (7.4-10.4); Monocytes % 13.8 % (1.7-9.3); Neutrophils # 4.4 K/mm3 (1.8-7.8); Platelet Count 195 K/mm3 (142-424); Red Blood Count 3.61 M/mm3 (4.20-5.40); Red Cell Distribution Width 14.2 % (11.5-17.5); White Blood Count 6.7 K/mm3 (4.8-10.8)
[2024-05-30 08:13] LABS: HBsAg Screen Negative (Negative); HCV Ab Non Reactive (Non Reactive); Hep A Ab, IGM Negative (Negative); Hep B Core Ab, IgM Negative (Negative)
--- NOTE | 2024-05-30 08:23 | HMH.PHAINT1 ---
Pharmacy Intervention Comments: HOME MEDICATION LIST VERIFIED USING LIST FROM OUTPATIENT PHARMACY AND DISCUSSIONS WITH DAUGHTER
[2024-05-30 08:30] LABS: Hemoglobin 10.5 g/dL (12.2-16.2)
[2024-05-30] MEDS: AZITHROMYCIN 250MG TABLET 250 MG PO (08:37)
[2024-05-30] MEDS: guaiFENesin 600 MG TAB.ER.12H PO ×2 (08:37→20:47)
[2024-05-30] MEDS: CEFTRIAXONE 1 GM 1 GM in 0.9 % SODIUM CHLORIDE 50 ML IV (08:38)
--- NOTE | 2024-05-30 09:08 | EXP.GE.CONS ---
History of Present Illness *Admission Date: 05/29/24 *History of present illness: Mrs. Crain is an 79-year-old female who is admitted for elevated liver chemistries, nausea, vomiting and diarrhea. She had dehydration and tachycardia. This began on Tuesday and she developed dizziness, nausea, vomiting and diarrhea on Tuesday. She went to her primary care physician and had tachycardia and was sent to cardiology (Dr. Paez). At that visit, blood work was obtained and patient's transaminases were elevated with ALT level of 728. This morning her ALT is 812. Her alkaline phosphatase is normal at 106 and total bilirubin 0.7. Abdominal imaging including ultrasound and CAT scan were obtained. There was no gallbladder wall thickening gallstones or biliary ductal dilation. She did have moderate right hydronephrosis. The patient has had improvement of her nausea and vomiting. She reports no abdominal pain. She has received IV hydration. Last evening, she had some confusion and daughter states that she was trying to find her bedroom and then got back into bed backwards. She was also talking about needing to get prepared for her Tuesday school class. This was out of the norm. The patient reports no alcohol use. [facility] Disclaimer: The information contained in this section may have been updated after the patient was seen, as this information can be updated by other users. Medical History Sinus tachycardia Wheezing Cough Pulmonary emboli Diverticulitis Gout HTN (hypertension) DVT (deep venous thrombosis) Surgical History Femur fracture, right Abnormal colonoscopy History of hysterectomy Family History Father Cancer Brother Cancer Social History (Updated 05/29/24 @ 21:03 by Letty New RN) Smoking Status: Never smoker alcohol intake: never substance use type: denies use current occupational status: retired Travel in the last 8 weeks: Inside the [place] Have you lived/traveled outside US in past 30 days?: No Contact w/someone who lives/traveled outside US past 30 days?: No Exposure to someone with infectious disease in past 14 days?: No Do you have a fever (greater than 100.4 F or 38 C)?: No Have you tested positive for COVID-19: No Exposed to someone with COVID-19 in past 14 days?: No Do you have a sore throat?: No Do you have a cough?: No Do you have any weakness?: No Do you have any diarrhea?: No Are you experiencing any unusual bleeding?: No Do you have any muscle aches/pain?: No Do you have any abdominal pain?: No Are you experiencing loss of taste or smell?: No Review of Systems Constitutional Constitutional: Reports weakness *Neurologic Neurologic: Reports as per HPI and Reports weakness Meds Home Medications and Allergies Home Medications ?Medication ?Instructions ?Recorded ?Confirmed ?Type allopurinol 300 mg tablet 300 mg PO DAILY 05/29/24 05/29/24 History amitriptyline 100 mg tablet 100 mg PO DAILY 05/29/24 05/29/24 History aspirin 81 mg tablet,delayed 81 mg PO DAILY 05/29/24 05/29/24 History release cholecalciferol (vitamin D3) 25 25 mcg PO DAILY 05/29/24 05/29/24 History mcg (1,000 unit) capsule colchicine 0.6 mg tablet 0.6 mg PO BID 05/29/24 05/29/24 History etodolac 200 mg capsule 200 mg PO Q8H PRN Arthritis Pain 05/29/24 05/30/24 History metoprolol succinate 50 mg 50 mg PO DAILY 05/29/24 05/30/24 History tablet,extended release 24 hr New Prescriptions to Start Prescriptions: Allergies Allergy/AdvReac Type Severity Reaction Status Date / Time gabapentin Allergy Verified 05/29/24 09:00 pregabalin (From Lyrica) Allergy Verified 05/29/24 09:00 ropinirole Allergy Verified 05/29/24 09:00 Exam (Inpt) Vital signs and Labs for Last 24 Hours: Temp Pulse Resp BP Pulse Ox O2 Del Method 99.2 F 122 H 20 134/68 91 L Room Air 05/30/24 07:53 05/30/24 07:53 05/30/24 07:53 05/30/24 07:53 05/30/24 07:53 05/30/24 07:53 Laboratory Results - last 24 hr 05/29/24 15:18: WBC 7.2, RBC 4.01 L, Hgb 11.8 L, Hct 35.9 L, MCV 89.5, MCH 29.4, MCHC 32.9, RDW 14.2, Plt Count 205, MPV 9.1, Neut % (Auto) 65.7, Lymph % (Auto) 18.9, [place] % (Auto) 12.7 H, Eos % (Auto) 1.5, Baso % (Auto) 0.6, Neut # (Auto) 4.7, Lymph # (Auto) 1.4, [place] # (Auto) 0.9, Eos # (Auto) 0.1, Baso # (Auto) 0.0, ESR 38 H, Sodium 135 L, Potassium 3.5, Chloride 104, Carbon Dioxide 21 L, Anion Gap 13.5, BUN 21 H, Creatinine 1.10 H, Estimated Creat Clear 42, Estimated GFR 48 L, Est GFR ( Amer) 58 L, Glucose 124 H, Calcium 8.5, Total Bilirubin 0.7, AST 835 H*, ALT 824 H*, Alkaline Phosphatase 130 H, Total Creatine Kinase 97, Troponin I < 0.01, C-Reactive Protein 121.1 H, NT-Pro-B Natriuret Pep 119, Total Protein 6.6, Albumin 4.0, Globulin 2.6, Albumin/Globulin Ratio 1.5, Lipase 50, Acetaminophen 11, Hepatitis A IgM Ab Negative, Hep Bs Antigen Negative, Hep B Core IgM Ab Negative, Hepatitis C Antibody Non reactive, HCV Ab BRITNEY w/Rflx PCR Qn Negative, HCV RNA PCR Test Info Comment, HIV Ag/Ab Combo Qual Negative 05/29/24 15:32: VBG pH 7.42 H, VBG pCO2 27.3 L, VBG pO2 99.3 H, VBG HCO3 17.2 L, VBG Total CO2 18.0 L, VBG O2 Saturation 97.9 H, VBG Base Excess -7.4 L, VBG Lactic Acid 2.5 H 05/29/24 16:04: Chlamy pneumoniae PCR Not detected, Adenovirus (PCR) Not detected, B. pertussis DNA (PCR) Not detected, Coronavirus OC43 (PCR) Not detected, Coronavirus HKU1 (PCR) Not detected, Coronavirus 229E (PCR) Not detected, SARS-CoV-2 (PCR) Not detected, Coronavirus NL63 (PCR) Not detected, Human Metapneumovir PCR Not detected, Influenza A (H1) PCR Not detected, Influ A (H1N1/09) PCR Not detected, Influenza A (H3) PCR Not detected, Influenza Type A (PCR) Not detected, Influenza Type B (PCR) Not detected, M. pneumoniae (PCR) Not detected, Parainfluenza 1 (PCR) Not detected, Parainfluenza 2 (PCR) Not detected, Parainfluenza 3 (PCR) Not detected, Parainfluenza 4 (PCR) Not detected, RSV (PCR) Not detected, Entero/Rhino (PCR) Not detected 05/29/24 17:05: Urine Color Yellow, Urine Appearance Slightly cloudy, Urine pH 6.0, Ur Specific [place] 1.010, Urine Protein Trace A, Urine Glucose (UA) Negative, Urine Ketones Negative, Urine Blood Negative, Urine Nitrate Negative, Urine Bilirubin 3+ A, Urine Urobilinogen 0.2, Ur Leukocyte Esterase 2+ A, Urine RBC Occasional, Urine WBC 20-50, Ur Squamous Epith Cells 5-10, Urine Bacteria 2+ 05/29/24 18:14: Troponin I < 0.01 05/29/24 20:40: Lactate 1.2 05/29/24 21:45: Troponin I < 0.01 05/30/24 06:41: WBC 6.7, RBC 3.61 L, Hgb 10.5 L D, Hct 32.2 L, MCV 89.2, MCH 29.1, MCHC 32.6, RDW 14.2, Plt Count 195, MPV 9.6, Neut % (Auto) 65.0, Lymph % (Auto) 18.4, [place] % (Auto) 13.8 H, Eos % (Auto) 1.6, Baso % (Auto) 0.6, Neut # (Auto) 4.4, Lymph # (Auto) 1.2, [place] # (Auto) 0.9, Eos # (Auto) 0.1, Baso # (Auto) 0.0, PT 12.8 H, INR 1.16 H, Sodium 134 L, Potassium 3.3 L, Chloride 105, Carbon Dioxide 24, Anion Gap 8.3, BUN 16, Creatinine 1.00, Estimated Creat Clear 47, Estimated GFR 53 L, Est GFR ( Amer) 64, Glucose 129 H, Lactate 1.3, Calcium 8.6, Magnesium 1.6 D, Total Bilirubin 0.7, GGT 75 H, AST 641 H*, ALT 812 H*, Alkaline Phosphatase 106, Total Protein 6.2 L, Albumin 3.6, Globulin 2.6, Albumin/Globulin Ratio 1.4, Triglycerides 132, Cholesterol 98 L, LDL Cholesterol Direct 38.79 L, VLDL Cholesterol 26, HDL Cholesterol 26 L, Cholesterol/HDL Ratio 3.8 H I & O for Labs for Last 24 Hours: Intake & Output 05/27/24 05/28/24 05/29/24 05/30/24 23:59 23:59 23:59 23:59 Intake Total 751 / 751 Output Total 0 / 0 0 / 0 Balance 0 / 277 751 / 751 Weight 147 lb 5 oz 149 lb Comments:: Normoactive bowel sounds, soft, benign abdomen, no distention, nontender, no hernias or masses Results Labs 05/30/24 06:41 05/30/24 06:41 Labs: Laboratory Results - last 24 hr 05/29/24 15:18: WBC 7.2, RBC 4.01 L, Hgb 11.8 L, Hct 35.9 L, MCV 89.5, MCH 29.4, MCHC 32.9, RDW 14.2, Plt Count 205, MPV 9.1, Neut % (Auto) 65.7, Lymph % (Auto) 18.9, [place] % (Auto) 12.7 H, Eos % (Auto) 1.5, Baso % (Auto) 0.6, Neut # (Auto) 4.7, Lymph # (Auto) 1.4, [place] # (Auto) 0.9, Eos # (Auto) 0.1, Baso # (Auto) 0.0, ESR 38 H, Sodium 135 L, Potassium 3.5, Chloride 104, Carbon Dioxide 21 L, Anion Gap 13.5, BUN 21 H, Creatinine 1.10 H, Estimated Creat Clear 42, Estimated GFR 48 L, Est GFR ( Amer) 58 L, Glucose 124 H, Calcium 8.5, Total Bilirubin 0.7, AST 835 H*, ALT 824 H*, Alkaline Phosphatase 130 H, Total Creatine Kinase 97, Troponin I < 0.01, C-Reactive Protein 121.1 H, NT-Pro-B Natriuret Pep 119, Total Protein 6.6, Albumin 4.0, Globulin 2.6, Albumin/Globulin Ratio 1.5, Lipase 50, Acetaminophen 11, Hepatitis A IgM Ab Negative, Hep Bs Antigen Negative, Hep B Core IgM Ab Negative, Hepatitis C Antibody Non reactive, HCV Ab BRITNEY w/Rflx PCR Qn Negative, HCV RNA PCR Test Info Comment, HIV Ag/Ab Combo Qual Negative 05/29/24 15:32: VBG pH 7.42 H, VBG pCO2 27.3 L, VBG pO2 99.3 H, VBG HCO3 17.2 L, VBG Total CO2 18.0 L, VBG O2 Saturation 97.9 H, VBG Base Excess -7.4 L, VBG Lactic Acid 2.5 H 05/29/24 16:04: Chlamy pneumoniae PCR Not detected, Adenovirus (PCR) Not detected, B. pertussis DNA (PCR) Not detected, Coronavirus OC43 (PCR) Not detected, Coronavirus HKU1 (PCR) Not detected, Coronavirus 229E (PCR) Not detected, SARS-CoV-2 (PCR) Not detected, Coronavirus NL63 (PCR) Not detected, Human Metapneumovir PCR Not detected, Influenza A (H1) PCR Not detected, Influ A (H1N1/09) PCR Not detected, Influenza A (H3) PCR Not detected, Influenza Type A (PCR) Not detected, Influenza Type B (PCR) Not detected, M. pneumoniae (PCR) Not detected, Parainfluenza 1 (PCR) Not detected, Parainfluenza 2 (PCR) Not detected, Parainfluenza 3 (PCR) Not detected, Parainfluenza 4 (PCR) Not detected, RSV (PCR) Not detected, Entero/Rhino (PCR) Not detected 05/29/24 17:05: Urine Color Yellow, Urine Appearance Slightly cloudy, Urine pH 6.0, Ur Specific [place] 1.010, Urine Protein Trace A, Urine Glucose (UA) Negative, Urine Ketones Negative, Urine Blood Negative, Urine Nitrate Negative, Urine Bilirubin 3+ A, Urine Urobilinogen 0.2, Ur Leukocyte Esterase 2+ A, Urine RBC Occasional, Urine WBC 20-50, Ur Squamous Epith Cells 5-10, Urine Bacteria 2+ 05/29/24 18:14: Troponin I < 0.01 05/29/24 20:40: Lactate 1.2 05/29/24 21:45: Troponin I < 0.01 05/30/24 06:41: WBC 6.7, RBC 3.61 L, Hgb 10.5 L D, Hct 32.2 L, MCV 89.2, MCH 29.1, MCHC 32.6, RDW 14.2, Plt Count 195, MPV 9.6, Neut % (Auto) 65.0, Lymph % (Auto) 18.4, [place] % (Auto) 13.8 H, Eos % (Auto) 1.6, Baso % (Auto) 0.6, Neut # (Auto) 4.4, Lymph # (Auto) 1.2, [place] # (Auto) 0.9, Eos # (Auto) 0.1, Baso # (Auto) 0.0, PT 12.8 H, INR 1.16 H, Sodium 134 L, Potassium 3.3 L, Chloride 105, Carbon Dioxide 24, Anion Gap 8.3, BUN 16, Creatinine 1.00, Estimated Creat Clear 47, Estimated GFR 53 L, Est GFR ( Amer) 64, Glucose 129 H, Lactate 1.3, Calcium 8.6, Magnesium 1.6 D, Total Bilirubin 0.7, GGT 75 H, AST 641 H*, ALT 812 H*, Alkaline Phosphatase 106, Total Protein 6.2 L, Albumin 3.6, Globulin 2.6, Albumin/Globulin Ratio 1.4, Triglycerides 132, Cholesterol 98 L, LDL Cholesterol Direct 38.79 L, VLDL Cholesterol 26, HDL Cholesterol 26 L, Cholesterol/HDL Ratio 3.8 H Assessment and Plan *Assessment and plan (1) Elevated liver transaminase level: Status: Acute Category: Medical Code(s): R74.01 - Elevation of levels of liver transaminase levels Plan 1. Elevated transaminases. Imaging shows no evidence of imaging shows no evidence of gallstones/CBD stones. I do feel that this is a viral reactive hepatitis and I will do testing for hepatitis as well as EBV and CMV. Sometimes even bacterial enterocolitis (especially Salmonella and Yersinia and C. difficile) can lead to elevated liver enzymes due to inflammation and potential damage caused by bacterial translocation and the body's inflammatory response. I will send stool PCR panel as well. I would even consider mild shock liver because of her dehydration. I do feel that this is acute not chronic and hopefully should see transaminases trending down over the next couple of weeks.
[2024-05-30] MEDS: MAGNESIUM SULFATE IN WATER 2 GM/50 ML PIGGYBACK IV ×2 (09:27→10:39)
[2024-05-30] MEDS: POTASSIUM CHLORIDE 20MEQ TAB 40 MEQ PO ×2 (09:30→11:12)
--- NOTE | 2024-05-30 10:49 | PC.NURSE ---
Pt family member at bedside. Educated pt and family about airborne precautions and need for mask. Pt's family member refusing to wear mask at this time. Pt left in low, locked bed with call light in reach. Denies pain and reports no other needs at this time.
[2024-05-30] MEDS: METOPROLOL SUCCINATE XL 50MG TABLET 50 MG PO (11:11)
--- NOTE | 2024-05-30 13:46 | HMH.PTEV ---
Physical Therapy Evaluation Rehab PT IP Evaluation Start: 05/30/24 10:48 Freq: ONCE Status: Active Protocol: Document 05/30/24 13:44 BRIAN (Rec: 05/30/24 13:46 PHOSHWETHA [id number]) Subjective/History History History 79-year-old female, that is a non-smoker nondrinker. Has had increasing swollen eyes cough starting on Tuesday progressively worsening. She also has some nausea and vomiting. Had diarrhea yesterday but notes that she has had problems controlling her bowels for a couple of months now. Patient was noted with 8 fractured ribs back last fall was treated with antibiotics and ended up with a PE. She reports she lives alone, [address] LU[address] the home, and she is generally independent with all mobility using a RW at baseline. Subjective Subjective She reports no new c/o, just generally feels weak and ill as she has for several days. She agrees to OOB mobility. [facility] How much help from another person do you currently need... Turning from your back to your side None while in a flat bed without using bedrails? Moving from lying on back to sitting on None the side of a flat bed without using bedrails? Moving to and from a bed to a chair ( None including a wheelchair)? Standing up from a chair using your arms None ? (e.g., wheelchair, bedside chair) Walking in hospital room? None Climbing 3-5 steps with a railing? None Mobility Score 24 Mobility Level [facility] Mobility Calculator Mobility 8 Walk 250 feet or more Rehab PT IP Eval Objective Appearance Patient Behavior Appropriate Patient Orientation Person,Place,Time Difficulty following instructions none Speech Pattern Clear Ambulation Patient Able to Ambulate Yes Ambulation Observation IP General Gait Pattern Observation No Deviations/Normal,Shuffling Step Ambulation Distance (feet) 40 Ambulation Assistive Device Rolling Walker Ambulation Ability Independent Balance Ability to Arise Able, uses arms to help Sitting Balance Steady, safe Standing Balance Steady, wide stance Dynamic Sitting Balance Ability Good Dynamic Standing Balance Ability Good Transfers Bed Transfer Ability Independent Chair Transfer Ability Independent Sit to Stand Bed Transfer Ability Independent Sit to Stand Chair Transfer Ability Independent Rehab PT IP prob,goals,plan Problems Date of Evaluation: 05/30/24 Discharge Plan PT Discharge Plan Pt is currently appropriate to return to home once medically stable for d/c. No inpatient acute therapy needs at this time. Eval Complexity Eval Charge Codes 22517 - High Complexity PHYSICIAN CERTIFICATION: I certify the specified therapy services for [facility] are required, authorized, and reviewed every 30 days.
--- NOTE | 2024-05-30 17:02 | EXP.ACUTE.PN ---
Subjective *Date: 05/30/24 *Time: 17:15 Interval history: Patient remained afebrile overnight. Stable on room air. No nausea or vomiting. Very hoarse on exam. Still has mild erythema of eyelids. Dry nonproductive cough. Denies chest pain or shortness of breath. States she just feels poor. No recent changes in meds. Medical Exam Vital signs and Labs for Last 24 Hours: Vital Signs Temp Pulse Pulse Resp BP BP Pulse Ox 05/30/24 16:00 98.4 F 85 20 127/66 94 L 05/30/24 15:00 05/30/24 13:00 05/30/24 12:00 90 05/30/24 12:00 98.6 F 95 H 18 135/80 95 05/30/24 11:00 05/30/24 09:00 05/30/24 08:00 120 H 05/30/24 08:00 05/30/24 07:53 99.2 F 122 H 20 134/68 91 L 05/30/24 06:40 05/30/24 05:00 05/30/24 04:00 110 H 05/30/24 04:00 98.9 F 120 H 16 128/80 91 L 05/30/24 03:00 05/30/24 01:00 05/30/24 00:00 110 H 05/30/24 00:00 98.4 F 117 H 18 135/78 94 L 05/29/24 23:00 05/29/24 21:00 05/29/24 20:45 110 H 05/29/24 20:00 99.7 F H 127 H 16 139/99 H 94 L 05/29/24 19:44 98.7 F 111 H 30 H 150/89 H 05/29/24 19:13 127 H 16 94 L 05/29/24 18:30 107 H 13 156/89 H 95 05/29/24 18:00 115 H 16 144/84 H 96 05/29/24 17:23 117 H 142/82 H 94 L O2 Del Method 05/30/24 16:00 Room Air 05/30/24 15:00 Room Air 05/30/24 13:00 Room Air 05/30/24 12:00 05/30/24 12:00 Room Air 05/30/24 11:00 Room Air 05/30/24 09:00 Room Air 05/30/24 08:00 05/30/24 08:00 Room Air 05/30/24 07:53 Room Air 05/30/24 06:40 Room Air 05/30/24 05:00 Room Air 05/30/24 04:00 05/30/24 04:00 Room Air 05/30/24 03:00 Room Air 05/30/24 01:00 Room Air 05/30/24 00:00 05/30/24 00:00 Room Air 05/29/24 23:00 Room Air 05/29/24 21:00 Room Air 05/29/24 20:45 05/29/24 20:00 Room Air 05/29/24 19:44 Room Air 05/29/24 19:13 Room Air 05/29/24 18:30 Room Air 05/29/24 18:00 Room Air 05/29/24 17:23 Room Air Intake and Output 05/30/24 05/30/24 05/30/24 07:59 15:59 23:59 Intake Total 751 / 1141 390 / 1141 Output Total 0 / 0 0 / 0 Balance 751 / 1141 390 / 1141 0 / 1141 Intake: Intake, Oral Amount 651 / 891 240 / 891 Intake, Total IV Amount 150 / 150 Ceftriaxone Sodium 2 gm In 0.9 50 / 50 % Sodium Chloride 100 ml @ 200 mls/hr IV ONCE ONE Rx#:[id number] Magnesium Sulfate in Water 2 gm 100 / 100 In 50 ml @ 50 mls/hr IV Q1H [facility] [place] Rx#:[id number] Infusion Intake 100 / 100 Ceftriaxone Sodium 2 gm In 0.9 100 / 100 % Sodium Chloride 100 ml @ 200 mls/hr IV ONCE ONE Rx#:[id number] Output: Output, Urine Amount 0 / 0 0 / 0 Other: Number of Unmeasured Voids 1 2 Weight 67.585 kg Patient Weight 05/30/24 23:59 Weight 67.585 kg Laboratory Results - last 24 hr 05/29/24 15:18: Sodium 135 L, Potassium 3.5, Chloride 104, Carbon Dioxide 21 L, Anion Gap 13.5, BUN 21 H, Creatinine 1.10 H, Estimated Creat Clear 42, Estimated GFR 48 L, Est GFR ( Amer) 58 L, Glucose 124 H, Calcium 8.5, Total Bilirubin 0.7, AST 835 H*, ALT 824 H*, Alkaline Phosphatase 130 H, Troponin I < 0.01, C-Reactive Protein 121.1 H, Total Protein 6.6, Albumin 4.0, Globulin 2.6, Albumin/Globulin Ratio 1.5, Lipase 50, Acetaminophen 11, Hepatitis A IgM Ab Negative, Hep Bs Antigen Negative, Hep B Core IgM Ab Negative, Hepatitis C Antibody Non reactive, HCV RNA PCR Test Info Comment 05/29/24 16:04: Chlamy pneumoniae PCR Not detected, Adenovirus (PCR) Not detected, B. pertussis DNA (PCR) Not detected, Coronavirus OC43 (PCR) Not detected, Coronavirus HKU1 (PCR) Not detected, Coronavirus 229E (PCR) Not detected, SARS-CoV-2 (PCR) Not detected, Coronavirus NL63 (PCR) Not detected, Human Metapneumovir PCR Not detected, Influenza A (H1) PCR Not detected, Influ A (H1N1/09) PCR Not detected, Influenza A (H3) PCR Not detected, Influenza Type A (PCR) Not detected, Influenza Type B (PCR) Not detected, M. pneumoniae (PCR) Not detected, Parainfluenza 1 (PCR) Not detected, Parainfluenza 2 (PCR) Not detected, Parainfluenza 3 (PCR) Not detected, Parainfluenza 4 (PCR) Not detected, RSV (PCR) Not detected, Entero/Rhino (PCR) Not detected 05/29/24 17:05: Urine Color Yellow, Urine Appearance Slightly cloudy, Urine pH 6.0, Ur Specific Dyke 1.010, Urine Protein Trace A, Urine Glucose (UA) Negative, Urine Ketones Negative, Urine Blood Negative, Urine Nitrate Negative, Urine Bilirubin 3+ A, Urine Urobilinogen 0.2, Ur Leukocyte Esterase 2+ A, Urine RBC Occasional, Urine WBC 20-50, Ur Squamous Epith Cells 5-10, Urine Bacteria 2+ 05/29/24 18:14: Troponin I < 0.01 05/29/24 20:40: Lactate 1.2 05/29/24 21:45: Troponin I < 0.01 05/30/24 06:41: WBC 6.7, RBC 3.61 L, Hgb 10.5 L D, Hct 32.2 L, MCV 89.2, MCH 29.1, MCHC 32.6, RDW 14.2, Plt Count 195, MPV 9.6, Neut % (Auto) 65.0, Lymph % (Auto) 18.4, [place] % (Auto) 13.8 H, Eos % (Auto) 1.6, Baso % (Auto) 0.6, Neut # (Auto) 4.4, Lymph # (Auto) 1.2, [place] # (Auto) 0.9, Eos # (Auto) 0.1, Baso # (Auto) 0.0, PT 12.8 H, INR 1.16 H, Sodium 134 L, Potassium 3.3 L, Chloride 105, Carbon Dioxide 24, Anion Gap 8.3, BUN 16, Creatinine 1.00, Estimated Creat Clear 47, Estimated GFR 53 L, Est GFR ( Amer) 64, Glucose 129 H, Lactate 1.3, Calcium 8.6, Magnesium 1.6 D, Total Bilirubin 0.7, GGT 75 H, AST 641 H*, ALT 812 H*, Alkaline Phosphatase 106, Total Protein 6.2 L, Albumin 3.6, Globulin 2.6, Albumin/Globulin Ratio 1.4, Triglycerides 132, Cholesterol 98 L, LDL Cholesterol Direct 38.79 L, VLDL Cholesterol 26, HDL Cholesterol 26 L, Cholesterol/HDL Ratio 3.8 H I & O for Labs for Last 24 Hours: Intake & Output 05/27/24 05/28/24 05/29/24 05/30/24 23:59 23:59 23:59 23:59 Intake Total 1141 / 1141 Output Total 0 / 0 0 / 0 Balance 0 / 277 1141 / 1141 Weight 66.82 kg 67.585 kg Constitutional: Present no acute distress, average body habitus, chronically ill appearing and cooperative Head: Present atraumatic and normocephalic ENT: Present normal exam Comment:: Erythema of eyelids bilaterally Neck: Present normal inspection Respiratory: Present normal respiratory effort; Absent rhonchi, wheezes or crackles Comment:: Dry cough, hoarse voice Cardiac: Present Reg Rate and Rhythm GI: Present soft and normal bowel sounds; Absent distention or tenderness Extremities: Present normal inspection and full ROM Skin: Present intact; Absent erythema Neuro: Present Grossly Intact, alert, awake, oriented x 3 and moves all extremities Assessment and Plan *Assessment and plan (1) Abnormal liver function: Status: Acute Category: Medical Code(s): R94.5 - Abnormal results of liver function studies (2) URI (upper respiratory infection): Status: Acute Qualifiers: URI type: unspecified viral URI Qualified Code(s): J06.9 - Acute upper respiratory infection, unspecified Category: Medical Code(s): J06.9 - Acute upper respiratory infection, unspecified (3) Acute UTI: Status: Acute Category: Medical Code(s): N39.0 - Urinary tract infection, site not specified (4) Cough: Status: Acute Qualifiers: Cough type: acute Qualified Code(s): R05.1 - Acute cough Category: Medical Code(s): R05.9 - Cough, unspecified (5) Conjunctivitis: Status: Acute Qualifiers: Acute conjunctivitis type: unspecified Conjunctivitis type: acute Laterality: bilateral Qualified Code(s): H10.33 - Unspecified acute conjunctivitis, bilateral Category: Medical Code(s): H10.9 - Unspecified conjunctivitis (6) Hydronephrosis: Status: Acute Qualifiers: Hydronephrosis type: unspecified Qualified Code(s): N13.30 - Unspecified hydronephrosis Category: Medical Code(s): N13.30 - Unspecified hydronephrosis (7) Tachycardia: Status: Acute Category: Medical Code(s): R00.0 - Tachycardia, unspecified (8) HTN (hypertension): Status: Acute Qualifiers: Hypertension type: primary hypertension Qualified Code(s): I10 - Essential (primary) hypertension Category: Medical Code(s): I10 - Essential (primary) hypertension Plan 79-year-old female who presented with abnormal liver labs from her PCP. On workup in the ER, concern for conjunctivitis, cough, transaminitis. Admitted to medicine for further management. Stable this morning but still ill necessitating inpatient management and further workup. Due to patient's cough, runny nose, eyelid erythema/conjunctivitis, will obtain measles panel. Under contact precautions. No [place] spots or rash at this time. Hepatitis panel negative. EBV, CMV, diarrhea panel still pending. Continues to require inpatient management. Problems addressed as follows: Transaminitis Viral illness - GI evaluated today, discussed case after their evaluation, recommend further testing for viral etiologies of hepatitis including EBV and CMV. Hepatitis panel negative. Diarrhea panel ordered and pending. Continue conservative management. -Liver enzymes with slight improvement today, AST 641, ALT 812, alk phos normal at 106. White count normal at 6.7. - Repeat CBC, magnesium, CMP ordered for the morning - Continue ceftriaxone empirically 1 g daily given acute illness. Continue cough medicine with guaifenesin/dextromethorphan 10 mL every 4 hours as needed -Toradol 15 mg IV every 6 hours as needed for pain, fever -Continue tobramycin eyedrops twice daily for conjunctivitis Continue home metoprolol succinate 50 mg daily for hypertension Continue Elavil 100 mg nightly for mood Of note, had mild hydronephrosis of right kidney on CT. Kidney function normal however. No concern for acute obstruction. Urinalysis unremarkable for UTI. Urine culture pending however given unknown source of suspected infection. Will consider outpatient urology referral for further evaluation after discharge Full code Regular diet
[2024-05-30] MEDS: AMITRIPTYLINE 50MG TABLET 100 MG PO (18:45)
--- NOTE | 2024-05-30 20:31 | PC.NURSE ---
Addendum entered by Letty New RN 05/30/24 20:53: Consulted with Rigo FLORES about giving Acetaminophen due to ongoing elevated AST/ALT at this time; he stated that the Tylenol should not be given. I will be ignoring the sent Acetaminophen order due to elevated AST/ALT and contraindication of administration (order to be discontinued). Rigo FLORES suggested to administer Toradol instead for the patient's elevated temperature; Toradol to be given per MAY. Oral temperature will be rechecked accordingly. Original Note: Patient's oral temperature was elevated this evening at 99.9. Rigo FLORES was paged at this time to obtain a verbal order for Acetaminophen 650 mg PO every 6 hours PRN. Order to be faxed to overnight pharmacy accordingly.
[2024-05-30] MEDS: FAMOTIDINE 20MG/2ML VIAL 20 MG IV (20:46)
[2024-05-30] MEDS: SODIUM CHLORIDE 0.9% 10ML VIAL 8 ML IV (20:47)
[2024-05-30] MEDS: KETOROLAC 30MG/ML VIAL 15 MG IV (21:05)
[2024-05-31] VITALS: BP 112/74; PULSE 70; PULSE 75; RESP 16; TEMP 37.4; O2SAT 100
[2024-05-31 04:00] VITALS: BP 142/98; PULSE 80; PULSE 93; RESP 16; TEMP 36.4; O2SAT 94; BMI 26.4
--- NOTE | 2024-05-31 04:54 | PC.NURSE ---
Addendum entered by Letty New RN 05/31/24 06:13: Patient has remained afebrile thus far since receiving one dose of Toradol earlier this shift. Normal sinus rhythm on telemetry. 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 She has expressed confusion with time, situation, and place; patient is alert to self and can correctly cite her birthday. Patient is easily redirected and reoriented. Family member has remained at the bedside this shift. She was observed to have eyes closed, respirations even and unlabored on room air, and no apparent distress for the majority of the night. Patient continues to have a cough which has made her voice hoarse and soft-spoken. Eye appearance improving but remains swollen with redness; ointment applied this shift. Drainage noticed to be clear and watery. No rash noted to patient's skin upon assessment and this morning. Scheduled medications administered as appropriately per MAY. Patient continues to ambulate with assistance + utilization of a walker; weakness and unsteadiness noted. At this time, the patient is resting in bed without any further complaints. No new needs at this time. Bed alarm on. Call light within reach. Contact/airborne precautions ongoing pending measles panel?
[2024-05-31 07:10] LABS: Measles Antibodies, IgG >300.0 AU/mL (Immune >16.4)
[2024-05-31 07:10] LABS: Cytomegalovirus (CMV) Ab, IgM <30.0 AU/mL (0.0-29.9)
[2024-05-31 07:35] LABS: Basophils % 0.5 % (0.1-2.0); Eosinophils # 0.3 K/mm3 (0.0-0.4); Eosinophils % 4.8 % (0.1-12.0); Hematocrit 33.4 % (37.0-47.0); Hemoglobin 10.8 g/dL (12.2-16.2); Lymphocytes # 1.6 K/mm3 (0.7-4.5); Lymphocytes % 27.7 % (10-50); Mean Corpuscular HGB Conc 32.3 g/dL (31.8-35.4); Mean Corpuscular Hemoglobin 29.8 pg (27.0-31.2); Mean Corpuscular Volume 92.3 fl (81-99); Mean Platelet Volume 9.2 fl (7.4-10.4); Monocytes # 0.7 K/mm3 (0.1-1.0); Monocytes % 12.4 % (1.7-9.3); Neutrophils # 3.1 K/mm3 (1.8-7.8); Neutrophils % 52.5 % (37.0-80.0); Platelet Count 210 K/mm3 (142-424); Red Blood Count 3.62 M/mm3 (4.20-5.40); Red Cell Distribution Width 14.4 % (11.5-17.5); White Blood Count 5.8 K/mm3 (4.8-10.8)
[2024-05-31 07:52] LABS: Anion Gap 9.6 mEq/L (5-15); Blood Urea Nitrogen 16 mg/dl (7-17); Calcium 9.6 mg/dl (8.4-10.2); Carbon Dioxide 24 mmol/L (22.0-30.0); Chloride 108 mmol/L (98-107); Creatinine Clearance Estimated 47 mL/min (50-200); Estimated Glomerular Filt Rate 60 ml/min (>60); GFR (African American) 73 ML/MIN (>60); Glucose 99 mg/dl (74-100); Magnesium 2.4 mg/dl (1.6-2.3); Potassium 4.6 mmoL/L (3.5-5.1); Sodium 137 mmol/L (136-145)
[2024-05-31 08:00] VITALS: BP 117/63; PULSE 65; PULSE 83; RESP 17; TEMP 36.9; O2SAT 95
[2024-05-31] MEDS: CEFTRIAXONE 1 GM 1 GM in 0.9 % SODIUM CHLORIDE 50 ML IV (08:04)
[2024-05-31] MEDS: METOPROLOL SUCCINATE XL 50MG TABLET 50 MG PO (08:05)
[2024-05-31] MEDS: AZITHROMYCIN 250MG TABLET 250 MG PO (08:05)
[2024-05-31] MEDS: guaiFENesin 600 MG TAB.ER.12H PO (08:05)
[2024-05-31 08:17] LABS: Hep A Ab, IgM Negative (Negative); Hepatitis B Core Antibody, IgM Negative (Negative); Hepatitis B Surface Antigen Negative (Negative); Hepatitis C Antibody Non Reactive (Non Reactive)
[2024-05-31 10:52] LABS: Alanine Aminotransferase 647 U/L (12-78); Albumin Level 3.7 g/dl (3.5-5.0); Albumin/Globulin Ratio 1.4 (1.1-1.8); Alkaline Phosphatase 96 U/L (38-126); Anion Gap 11.5 mEq/L (5-15); Aspartate Amino Transferase 252 U/L (14-36); Bilirubin,Total 0.4 mg/dl (0.2-1.3); Blood Urea Nitrogen 16 mg/dl (7-17); Calcium 8.7 mg/dl (8.4-10.2); Carbon Dioxide 22 mmol/L (22.0-30.0); Chloride 108 mmol/L (98-107); Creatinine Clearance Estimated 47 mL/min (50-200); Estimated Glomerular Filt Rate 60 ml/min (>60); GFR (African American) 73 ML/MIN (>60); Globulin 2.6 g/dL (1.3-3.2); Glucose 105 mg/dl (74-100); Potassium 4.5 mmoL/L (3.5-5.1); Sodium 137 mmol/L (136-145); Total Protein,Serum 6.3 g/dl (6.3-8.2)
--- NOTE | 2024-05-31 11:33 | EXP.DC.SUM ---
General Admission date:: 05/29/24 Discharge date: 05/31/24 HPI HPI HPI: Mrs. Crain is an 79-year-old female who is admitted for elevated liver chemistries, nausea, vomiting and diarrhea. She had dehydration and tachycardia. This began on Tuesday and she developed dizziness, nausea, vomiting and diarrhea on Tuesday. She went to her primary care physician and had tachycardia and was sent to cardiology (Dr. Paez). At that visit, blood work was obtained and patient's transaminases were elevated with ALT level of 728. This morning her ALT is 812. Her alkaline phosphatase is normal at 106 and total bilirubin 0.7. Abdominal imaging including ultrasound and CAT scan were obtained. There was no gallbladder wall thickening gallstones or biliary ductal dilation. She did have moderate right hydronephrosis. The patient has had improvement of her nausea and vomiting. She reports no abdominal pain. She has received IV hydration. Last evening, she had some confusion and daughter states that she was trying to find her bedroom and then got back into bed backwards. She was also talking about needing to get prepared for her Tuesday school class. This was out of the norm. The patient reports no alcohol use. Hospital Course Hospital Course Hospital Course: 79-year-old female who presented with abnormal liver labs from her PCP. On workup in the ER, concern for conjunctivitis, cough, transaminitis. Admitted to medicine for further management. Stable this morning but still ill necessitating inpatient management and further workup. Due to patient's cough, runny nose, eyelid erythema/conjunctivitis, will obtain measles panel. Under contact precautions. No [place] spots or rash at this time. Hepatitis panel negative. EBV, CMV, diarrhea panel still pending. Continues to require inpatient management. Problems addressed as follows: Transaminitis Viral illness -Liver enzymes rated above 800 for both AST and ALT on admission. Showing improvement during admission. Improved to AST of 280 and ALT of 640 by day of discharge. Patient has no abdominal pain. Clinically showing improvement. At this time, suspect her symptoms are related to unidentified viral illness. Given her clinical improvement in symptoms and clinical stability, will discharge home with close follow-up with her primary care in the next week. Continue symptomatic treatment for cough with [id number] cough medicine. Will complete short course of empiric antibiotics with azithromycin and cefdinir to complete 5 days total. Repeat labs in 3 to 5 days to monitor liver function. Recommend avoiding colchicine and etodolac to decrease risk for transaminitis. Use Tylenol cautiously. -Continue tobramycin eye ointment twice daily for conjunctivitis -GI consulted during admission. Recommended extensive viral testing. Hepatitis panel, EBV, CMV all negative. Respiratory panel was negative. Measles IgG greater than 300, consistent with previous infection and immunity. Rubeola IgM still pending at discharge. Continue home metoprolol succinate 50 mg daily for hypertension Continue Elavil 100 mg nightly for mood Of note, had mild hydronephrosis of right kidney on CT. Kidney function normal however. No concern for acute obstruction. Urinalysis unremarkable for UTI. Urine culture pending however given unknown source of suspected infection. Referred to urology after discharge for further evaluation after discharge Total time spent on discharge 35 minutes in counseling, documentation, chart review, and direct care with patient. Exam Data for Last 24 hours Vital signs and Labs for Last 24 Hours: Temp Pulse Resp BP Pulse Ox O2 Del Method O2 Flow Rate 98.4 F 65 17 117/63 95 Room Air 2 05/31/24 08:00 05/31/24 08:00 05/31/24 08:00 05/31/24 08:00 05/31/24 08:00 05/31/24 09:00 05/31/24 00:00 Laboratory Results - last 24 hr 05/30/24 06:41: Rubeola (Measles) IgG >300.0 05/30/24 10:48: CMV IgM Ab <30.0, Hepatitis A IgM Ab Negative, Hep Bs Antigen Negative, Hep B Core IgM Ab Negative, Hepatitis C Antibody Non reactive 05/31/24 07:10: WBC 5.8, RBC 3.62 L, Hgb 10.8 L, Hct 33.4 L, MCV 92.3, MCH 29.8, MCHC 32.3, RDW 14.4, Plt Count 210, MPV 9.2, Neut % (Auto) 52.5, Lymph % (Auto) 27.7, [place] % (Auto) 12.4 H, Eos % (Auto) 4.8, Baso % (Auto) 0.5, Neut # (Auto) 3.1, Lymph # (Auto) 1.6, [place] # (Auto) 0.7, Eos # (Auto) 0.3, Baso # (Auto) 0.0, Sodium 137, Potassium 4.6 D, Chloride 108 H, Carbon Dioxide 24, Anion Gap 9.6, BUN 16, Creatinine 0.90, Estimated Creat Clear 47, Estimated GFR 60, Est GFR ( Amer) 73, Glucose 99, Calcium 9.6, Magnesium 2.4 H D 05/31/24 10:34: Sodium 137, Potassium 4.5, Chloride 108 H, Carbon Dioxide 22, Anion Gap 11.5, BUN 16, Creatinine 0.90, Estimated Creat Clear 47, Estimated GFR 60, Est GFR ( Amer) 73, Glucose 105 H, Calcium 8.7, Total Bilirubin 0.4, AST 252 H D, ALT 647 H*, Alkaline Phosphatase 96, Total Protein 6.3, Albumin 3.7, Globulin 2.6, Albumin/Globulin Ratio 1.4 I & O for Last 24 hours: Intake & Output 05/28/24 05/29/24 05/30/24 05/31/24 23:59 23:59 23:59 23:59 Intake Total 1381 / 1581 320 / 320 Output Total 0 / 0 100 / 100 0 / 0 Balance 0 / 277 1281 / 1481 320 / 320 Weight 66.82 kg 67.585 kg 67.721 kg Microbiology Reports for the Last 24 Hours: Microbiology 05/29/24 17:05 Urine,Clean Catch Urine Culture - Final Multiple organisms, suggests contamination. Constitutional Constitutional: no acute distress, average body habitus, chronically ill appearing and cooperative Comments: Generalized ill appearance but improving *Routine HEENT Exam Head: Present normocephalic Eye: Present EOMI and PERRL ENT: Present mucous membranes moist and other (No oropharyngeal lesions) Comments: Periorbital erythema bilaterally improving, not completely resolved but significantly better from admission. No scleral injection. *Routine Neck Exam Neck: Present supple; Absent lymphadenopathy *Routine Respiratory Exam Respiratory: Present rhonchi; Absent accessory muscle use, wheezes or crackles *Routine Cardiovascular Exam Cardiovascular: Present RRR *Routine Abdominal Exam Abdominal: Present soft and normoactive bowel sounds; Absent tenderness *Routine Rectal Exam Patient deferred: visual exam *Routine Exam Patient deferred: external exam *Routine Extremities Exam Extremities: Absent cyanosis, clubbing or edema *Routine Skin Exam Skin: Present intact and warm; Absent rash *Routine Neurological Exam Neurological: Present alert, oriented X3 and moving all extremities; Absent altered mental status Results Data Completed and Pending Labs on day of discharge: Labs from last 24 hours 05/31/24 05/31/24 05/30/24 10:34 07:10 10:48 WBC 5.8 RBC 3.62 L Hgb 10.8 L Hct 33.4 L MCV 92.3 MCH 29.8 MCHC 32.3 RDW 14.4 Plt Count 210 MPV 9.2 Neut % (Auto) 52.5 Lymph % (Auto) 27.7 [place] % (Auto) 12.4 H Eos % (Auto) 4.8 Baso % (Auto) 0.5 Neut # (Auto) 3.1 Lymph # (Auto) 1.6 [place] # (Auto) 0.7 Eos # (Auto) 0.3 Baso # (Auto) 0.0 Sodium 137 137 Potassium 4.5 4.6 D Chloride 108 H 108 H Carbon Dioxide 22 24 Anion Gap 11.5 9.6 BUN 16 16 Creatinine 0.90 0.90 Estimated Creat Clear 47 47 Estimated GFR 60 60 Est GFR ( Amer) 73 73 Glucose 105 H 99 Calcium 8.7 9.6 Magnesium 2.4 H D Total Bilirubin 0.4 AST 252 H D ALT 647 H* Alkaline Phosphatase 96 Total Protein 6.3 Albumin 3.7 Globulin 2.6 Albumin/Globulin Ratio 1.4 CMV IgM Ab <30.0 Hepatitis A IgM Ab Negative Hep Bs Antigen Negative Hep B Core IgM Ab Negative Hepatitis C Antibody Non reactive Rubeola (Measles) IgG 05/30/24 06:41 WBC RBC Hgb Hct MCV MCH MCHC RDW Plt Count MPV Neut % (Auto) Lymph % (Auto) [place] % (Auto) Eos % (Auto) Baso % (Auto) Neut # (Auto) Lymph # (Auto) [place] # (Auto) Eos # (Auto) Baso # (Auto) Sodium Potassium Chloride Carbon Dioxide Anion Gap BUN Creatinine Estimated Creat Clear Estimated GFR Est GFR ( Amer) Glucose Calcium Magnesium Total Bilirubin AST ALT Alkaline Phosphatase Total Protein Albumin Globulin Albumin/Globulin Ratio CMV IgM Ab Hepatitis A IgM Ab Hep Bs Antigen Hep B Core IgM Ab Hepatitis C Antibody Rubeola (Measles) IgG >300.0 DS: Diagnosis Discharge Diagnosis (1) Abnormal liver function: Status: Acute Code(s): R94.5 - Abnormal results of liver function studies (2) URI (upper respiratory infection): Status: Acute Code(s): J06.9 - Acute upper respiratory infection, unspecified Qualifiers: URI type: unspecified viral URI Qualified Code(s): J06.9 - Acute upper respiratory infection, unspecified (3) Acute UTI: Status: Acute Code(s): N39.0 - Urinary tract infection, site not specified (4) Cough: Status: Acute Code(s): R05.9 - Cough, unspecified Qualifiers: Cough type: acute Qualified Code(s): R05.1 - Acute cough (5) Conjunctivitis: Status: Acute Code(s): H10.9 - Unspecified conjunctivitis Qualifiers: Acute conjunctivitis type: unspecified Conjunctivitis type: acute Laterality: bilateral Qualified Code(s): H10.33 - Unspecified acute conjunctivitis, bilateral (6) Hydronephrosis: Status: Acute Code(s): N13.30 - Unspecified hydronephrosis Qualifiers: Hydronephrosis type: unspecified Qualified Code(s): N13.30 - Unspecified hydronephrosis (7) Tachycardia: Status: Acute Code(s): R00.0 - Tachycardia, unspecified (8) HTN (hypertension): Status: Acute Code(s): I10 - Essential (primary) hypertension Qualifiers: Hypertension type: primary hypertension Qualified Code(s): I10 - Essential (primary) hypertension Meds Home Medications and Allergies Home Medications ?Medication ?Instructions ?Recorded ?Confirmed ?Type allopurinol 300 mg tablet 300 mg PO DAILY 05/29/24 05/29/24 History amitriptyline 100 mg tablet 100 mg PO DAILY 05/29/24 05/29/24 History aspirin 81 mg tablet,delayed 81 mg PO DAILY 05/29/24 05/29/24 History release cholecalciferol (vitamin D3) 25 25 mcg PO DAILY 05/29/24 05/29/24 History mcg (1,000 unit) capsule colchicine 0.6 mg tablet 0.6 mg PO BID 05/29/24 05/29/24 History etodolac 200 mg capsule 200 mg PO Q8H PRN Arthritis Pain 05/29/24 05/30/24 History metoprolol succinate 50 mg 50 mg PO DAILY 05/29/24 05/30/24 History tablet,extended release 24 hr azithromycin 250 mg tablet 250 mg PO DAILY 3 days #3 tabs 05/31/24 Rx cefdinir 300 mg capsule 300 mg PO BID #6 caps 05/31/24 Rx tobramycin 0.3 % eye ointment 1 applic ophthalmic (eye) BID 5 05/31/24 Rx (Tobrex) days #0 grams New Prescriptions to Start Prescriptions: Stuart Ford cefdinir Stuart Temple Allergies Allergy/AdvReac Type Severity Reaction Status Date / Time gabapentin Allergy Verified 05/29/24 09:00 pregabalin (From Lyrica) Allergy Verified 05/29/24 09:00 ropinirole Allergy Verified 05/29/24 09:00 Discharge Plan Disposition Patient Disposition: Home, Self-Care Condition: Fair Discharge Order Discharge Orders: Discharge Order (Routine); Ordered 05/31/24 Ordered By: Stuart Temple Follow up Plan Follow up with: Westley Weeks II, MD [Staff Physician] - 07/09/24 1:30 pm Yg Duarte APRN [Primary Care Provider] - 06/14/24 3:00 pm Reggie Martínez MD [Referring] - Enter time for follow up Prescriptions/Medication Reconciliation: New azithromycin 250 mg Tablet 250 mg PO DAILY 3 Days Qty: 3 0RF cefdinir 300 mg capsule 300 mg PO BID Qty: 6 0RF Tobrex 0.3 % Ointment 1 applic ophthalmic (eye) BID 5 Days Qty: 0 0RF Continued metoprolol succinate 50 mg tablet extended release 24 hr 50 mg PO DAILY Patient Comments: TAKE 1 TABLET BY MOUTH ONCE DAILY aspirin 81 mg tablet,delayed release (DR/EC) 81 mg PO DAILY amitriptyline 100 mg tablet 100 mg PO DAILY Patient Comments: TAKE 1 TABLET BY MOUTH ONCE DAILY cholecalciferol (vitamin D3) 25 mcg (1,000 unit) capsule 25 mcg PO DAILY Held etodolac 200 mg capsule 200 mg PO Q8H PRN (Reason: Arthritis Pain) Hold Instructions: pending normalization of liver enzymes allopurinol 300 mg tablet 300 mg PO DAILY Hold Instructions: pending normalization of liver enzymes Patient Comments: TAKE 1 TABLET BY MOUTH ONCE DAILY DIRECTED colchicine 0.6 mg tablet 0.6 mg PO BID Hold Instructions: pending normalization of liver enzymes Patient Comments: TAKE 1 TABLET BY MOUTH TWICE DAILY Other Ambulatory Orders: Comprehensive Metabolic Panel (Routine) Timeframe: 5 Days Facility: [facility] - Location: Laboratory Ordered By: Stuart Temple Problem Reconciliation Problems Reviewed?: Yes Patient Discharge Instructions ACTIVITY: Continue current activity DIET: continue same diet Patient Instructions: DI for Conjunctivitis, DI for Urinary Tract Infection (UTI) Print Language: Bengali Providers Primary Care Provider: Yg Duarte Admit Provider: Stuart Temple Attending Provider: Stuart Temple
[2024-05-31 12:00] VITALS: BP 137/96; PULSE 73; RESP 19; O2SAT 95
--- NOTE | 2024-05-31 12:26 | PC.NURSE ---
spoke with [facility], they will call pt and schedule follow up
[2024-05-31 15:11] LABS: EBV Ab VCA, IgM <36.0 U/mL (0.0-35.9)
--- NOTE | 2024-06-01 10:37 | SW/DCPLANNER ---
Spoke with the patients healthcare consultant. Patients healthcare consultant stated that she is doing better but still gets confused when the sun goes down. Patient's healthcare consultant stated that they are aware of her upcoming appointments. Patients healthcare consultant stated that they were able to get her new medicine from clinic pharmacy picked up and that one of the antibiotic pill was red while the other 2 were white. I suggested that she call the pharmacy to see what was going on there. Patients healthcare consultant stated that she has no concerns or questions at this time. Migdalia Dorsey
[2024-06-07 15:24] LABS: Miscellaneous Test SCANNED IMAGE
[2024-06-08 08:22] LABS: Vitamin K1 0.28 ng/mL (0.10-2.20)
== END 2024-05-31 13:05 | disposition home or self-care (01) ==
LOC: ER 18:52 → 2ND 19:42
PROVIDERS: Internal Medicine Gastroenterology; Nurse Practitioner Family; Admitting Provider Internal Medicine Adolescent Medicine; Emergency Provider Emergency Medicine; PCP Nurse Practitioner Family; Visit Provider Internal Medicine Adolescent Medicine
DX: R74.01 Elevation of levels of liver transaminase levels (principal); J06.9 Acute upper respiratory infection, unspecified; R11.2 Nausea with vomiting, unspecified; I10 Essential (primary) hypertension; M1A.9XX0 Chronic gout, unspecified, without tophus (tophi); K52.9 Noninfective gastroenteritis and colitis, unspecified; R00.0 Tachycardia, unspecified; E86.0 Dehydration; N13.30 Unspecified hydronephrosis; R41.0 Disorientation, unspecified; R42 Dizziness and giddiness; H10.33 Unspecified acute conjunctivitis, bilateral; M15.9 Polyosteoarthritis, unspecified; Z79.899 Other long term (current) drug therapy; Z79.82 Long term (current) use of aspirin; Z80.9 Family history of malignant neoplasm, unspecified; Z86.718 Personal history of other venous thrombosis and embolism; Z86.711 Personal history of pulmonary embolism; Z88.8 Allergy status to other drugs, medicaments and biological substances; Z87.19 Personal history of other diseases of the digestive system
CPT/HCPCS: 36415; 74177; 76705; 80048; 80053; 80061; 80074; 80329; 81001; 82550; 82803; 82977; 83605; 83690; 83735; 83880; 84484; 84597; 85025; 85610; 85651; 86140; 86645; 86665; 86705; 86709; 86765; 86803; 87086; 87340; 87380; 87389; 87633; 93005; 97163; 99285; G0378; J0696; J1885; J3475; J7614; Q9967; S0028

== ENCOUNTER 2024-06-04 07:36 | Outpatient (CLI) | payer MEDICARE, SELFPAY ==
--- NOTE | 2024-06-04 | CA_ITS ---
APPROVED REPORT EXAM: Comprehensive 2D, Doppler, and color-flow Echocardiogram [employer] Manager: Loli Lisa RT(R) Ht: 5 ft 2 in Wt: 147lbs BSA: 1.68 BP: 115/72 mmHg Indications: Dyspnea, HTN, edema, fatigue, [place], tachycardia, hx PE 02/2024 2D Dimensions LVEF (Majano's) 50.80 % F: 54 - 74 LV Volume 51.60 mL F: 46 - 106 LV Volume Index 30.7 mL/m2 F: 29 - 61 LA Volume 18.80 mL LA Volume Index 11.19 mL/m2 (M/F) 16-34 EF AP4 54.30 % EF AP2 49.2 % EF BP 50.8 % GL Strain -19.9 % M-Mode Dimensions RVDd 2.38 cm (0.9-2.6) LA Diam 3.36 cm (1.9-4.0) LVDd 4.15 cm (3.5-5.7) LVDs 3.18 cm (3.5-5.7) IVSd 0.70 cm (0.6-1.1) PWd 0.74 cm (0.6-1.1) EF (Teich) 47.30% FS 23.40% EDV (Teich) 76.40 mL ESV (Teich) 40.30 mL LV Diastology E Decel Time 180 (160-240 msec) E/A Ratio 0.8 Mitral Valve MV E Max Mansoor. 95.0 (40-130 cm/s) MV A Velocity 113.0 (40-130 cm/s) E/A Ratio 0.84 MV PHT 53.0 ms Left Ventricle The left ventricle is normal size. The left ventricular systolic function is normal. The left ventricular ejection fraction is within the normal range. There is increased LV wall thickness. Proximal septal thickening is noted. There is normal LV segmental wall motion. Transmitral Doppler flow pattern suggests impaired LV relaxation. LVEF is 65%. Right Ventricle The right ventricle is normal size. The right ventricular systolic function is normal. Atria The left atrium size is normal. The right atrium size is normal. There is no Doppler evidence of interatrial shunt. Aortic Valve Aortic valve is mildly thickened. There is no aortic valvular stenosis. No aortic regurgitation is present. Mitral Valve The mitral valve is normal in structure. No evidence of mitral valve stenosis. Trace mitral regurgitation. Tricuspid Valve Tricuspid valve is grossly normal in structure and function. Trace tricuspid regurgitation. There is insufficient TR jet to estimate RVSP. Pulmonic Valve The pulmonary valve is normal in structure. Trace pulmonic regurgitation. Great Vessels The aortic root is normal in size. IVC is normal in size and collapses >50% with inspiration. Pericardium There is no pericardial effusion. Epicardial fat pad is noted. Incidental finding of anechoic hepatic mass, measuring 4.2 centimeters in diameter. This likely represents hepatic cyst. Other Information Study Quality: Fair Conclusion Normal biventricular systolic function. No significant valvular stenosis or regurgitation. Incidental finding of anechoic hepatic mass, measuring 4.2 centimeters in diameter. This likely represents hepatic cyst. Correlation with new or recent abdominal imaging is suggested. Electronically signed by : Berna Damon MD 06/10/2024 21:15:58
== END 2024-06-04 23:59 | disposition home or self-care (01) ==
LOC: RT 07:37
PROVIDERS: PCP Nurse Practitioner Family; Visit Provider Nurse Practitioner Family
DX: R00.0 Tachycardia, unspecified (principal); R42 Dizziness and giddiness; R06.00 Dyspnea, unspecified; I26.99 Other pulmonary embolism without acute cor pulmonale; M10.9 Gout, unspecified; I10 Essential (primary) hypertension
CPT/HCPCS: 93306

== ENCOUNTER 2024-09-07 07:10 | Outpatient (CLI) | payer MEDICARE, SELFPAY ==
--- OUTSIDE RECORDS SUMMARY | 2024-09-07 07:14 | XMS_ITS | Data Portability ---
Author Organization [place] - [facility] ADMIN Address [address] [place] [id number] Care Team Providers Care Vp Packaging Name Role Phone DAVID GARCÍA Primary Care Provider VASYL CHINCHILLA Artificial Teeth Inspector ELI LEW Seafood Preparer Assessment Encounter Date Assessment Date Assessment LastModified by Organization Details LastModified Time 10/17/2023 10/17/2023 PERSONALIZED HEALTH PLAN (COPY PROVIDED TO PATIENT) 1) Vaccines: (a) Pneumococcal Vaccine - Type: Last Service: Plan: (b) Influenza vaccine - Last Service: Plan: 12/06/2022 (c) Hepatitis B vaccine - Last Service: Plan: (d) Shingrix Vaccine - Last Service: Plan: (e) COVID - Last Service: Plan: 04/25/2020 (f) COVID vaccine booster - Last Service: Plan: 01/25/2021 (g) Tetanus Vaccine - Last Service: Plan: Administered:08/13 2) Colorectal Cancer Screening for aged 45 75 years: Last service: Finding: Plan: 3) Bone Mass Measurements: Last Service: Recommendation: Many older people benefit from taking calcium and vitamin D supplements. Talk to your doctor about supplements. 4) Glaucoma screening Last service: Plan: 5) Cardiovascular Disease Screening Tests (Lipid Panel): Last service: Plan: Cholesterol, serum, total: HDL: Triglycerides: LDL: 6) Lung Screening & Counseling w/low dose CT Last service: Recommendation: Plan: 7) Pre-diabetes screening: Recommendation: Last service: Finding: Plan: 8) Diabetes self-management training (diagnosed with diabetes) Last service: Recommendation: Plan: FEMALE ONLY 9) Breast cancer screening Last service: Recommendation: Plan: FEMALE ONLY 10) Screening Pap Tests Last service: Recommendation: Plan: FEMALE ONLY 11) Screening Pelvic Exam (include clinical breast exam Last service: Recommendation: Plan: 12) Medical Nutritional therapy Diet recommendations may include: -Lots of vegetables and fruits -Fewer simple carbohydrates, fats and cholesterol -A moderate amount of protein and dairy Avoid: Artificial sweeteners, Soda, & Processed food. 13) Exercise counseling You should do 30 minutes of aerobic exercise for at least 5 days per week. Regular exercise can help: -Lower heart disease risk -Delay the onset of diabetes -Improve blood pressure, functional status and performance -Reduce the risk of falls and osteoporosis -Enhance mental health and cognitive function 14) Abdominal Aortic Aneurysm screening: . MALE ONLY 15) Prostate Cancer Screening Last service: Recommendation: Plan: 16) Hepatitis C Screening Last service: Recommendation: Plan: 17) Advance Directive discussed with patient. Patient verbalizes understanding and questions answered Plan: This exam was performed under the supervision of: David Morton MD Further consultation: All recommendations have been discussed thoroughly with the patient. Next Medicare Annual Wellness Visit will be due in 1 year. [email or web address] Not available 10/17/2023 11:42:20 Plan of Treatment Reminders Order Date Submit Date Provider Last Modified By Organization Details Last Modified Time Details Appointments AWV 30 2024 08:30A M David Mc[address] rd, MD Not available Not available Not available Lab uric acid, serum or plasma 2024 025 KRYSTAL [facility], [address], [place], [place], [address], 04/10/2024 08:23:11 CBC w/ auto diff 2024 025 KRYSTAL [facility], [address], [place] [address], [place], [address], 04/10/2024 08:23:06 vitamin D, 25-hydrox y, total, serum 2024 025 [email or web address] [facility], [address], [place] [address], [place], [address], 04/16/2024 12:34:35 CMP, serum or plasma 2024 025 KRYSTAL [facility], [address], [place] [address], [place], [address], 04/10/2024 08:23:07 magnesium , serum or plasma 2024 025 K[facility]STAL [facility], [address], [place] [address], [place], [address], 04/10/2024 08:23:12 lipid panel, serum 2024 025 KRYSTAL [facility], [address], [place] [address], [place], [address], 04/10/2024 08:23:09 uric acid, serum or plasma 2023 024 KRYSTAL [facility], [address], [place], [place], [address], 10/18/2023 08:23:56 vitamin D, 25-hydrox y, total, serum 2023 024 KRYSTAL [facility], [address], [place] [address], [place], [address], 10/18/2023 08:23:55 CMP, serum or plasma 2023 024 KRYSTAL [facility], [address], [place], [place], [address], 10/18/2023 08:23:54 magnesium , serum or plasma 2023 024 [facility]RYSTAL [facility], [address], [place], [place], [address], 10/18/2023 08:23:57 lipid panel, serum 2023 024 [facility]AL [facility], [address], [place] [address], [place], [address], 10/18/2023 08:23:55 CBC w/ auto diff 2023 024 KRYSTAL [facility], [address], [place] [address], [place], [address], 10/18/2023 08:23:53 Referral orthopedi c surgeon referral - I spoke with Dr. Quezada over the phone in regard to this patient 2024 025 [email or web address] Hugh Quezada DO, [address] [facility], [place], [address], 04/25/2024 09:12:35 Procedures None recorded. Surgeries None recorded. Imaging DEXA, axial skeleton + vertebral fracture assessmen t 2023 024 [email or web address] [facility] ([facility]), [address] [place] [address] , [place], [address], 05/21/2024 10:36:32 MAMMO, screening , digital, bilateral 2023 024 [email or web address] [facility] ([facility]), [address] [place] [address] , [place], [address], 05/16/2024 13:45:26 Medication Orders allopurin ol 300 mg tablet 2024 025 [facility], [address] [place], [address], 04/09/2024 13:31:20 metronida zole 0.75 % (37.5 mg/5 gram) vaginal gel 2024 025 [facility], [address] [place], [address], 04/09/2024 13:31:20 amitripty line 100 mg tablet 2024 025 [facility] [address], [address] [place], [address], 04/09/2024 13:31:19 metoprolo l succinate ER 50 mg tablet,ex tended release 24 hr 2024 025 [facility] [address], [address] [place], [address], 04/09/2024 13:31:22 allopurin ol 300 mg tablet 2023 024 [facility] [address], [address] [place], [address], 10/17/2023 12:12:44 amitripty line 100 mg tablet 2023 024 [facility] [address], [address] [place], [address], 10/17/2023 12:12:46 metoprolo l succinate ER 50 mg tablet,ex tended release 24 hr 2023 024 [facility], [address] [place], [address], 10/17/2023 12:12:49 triamtere ne 37.5 mg-hydroc hlorothia zide 25 mg tablet 2023 025 [facility], [address] [place], [address], 04/09/2024 13:29:38 Patient TargetsNo targets recorded. Patient Instructions Encounter Date Encounter Id Patient Instructions Last Modified By Organization Details Last Modified Time 10/17/2023 [id number] advance directives: care instructions [facility] Not available 10/17/2023 12:12:36 well visit, over 65: care instructions [facility] Not available 10/17/2023 12:12:36 Health Maintenance Recommendations: (5-10 year screening/prevent ion plan) [email or web address] Not available 09/02/2023 12:07:32 Reason for Referral Orthopedic Surgeon Referral for Pain in finger of right hand I spoke with Dr. Quezada over the phone in regard to this patient Referring Physician: David García, Internal Medicine, Encounter Date: 04/09/2024 Results Created Date Observation Date Name Description Value Unit Range Abnormal Flag Note LastModifiedBy Organization Detail LastModifiedTime 10/17/19 24 10/18/2023 CBC WITH DIFFE RENTI AL/PL ATELE T WBC 6.5 x10e3 /uL 3.4-10 .8 normal Not Available [facility] ([facility]) [address] [facility], [place], [address], 10/18/2023 08:23:53 10/17/19 24 10/18/2023 CBC WITH DIFFE RENTI AL/PL ATELE T RBC 4.36 x10e6 /uL 3.77-5 .28 normal Not Available [facility] ([facility]) [address] [place], [address], 10/18/2023 08:23:53 10/17/19 24 10/18/2023 CBC WITH DIFFE RENTI AL/PL ATELE T hemoglobin 12.8 g/dL 11.1-1 5.9 normal Not Available [facility] ([facility]) [address] [facility], [place], [address], 10/18/2023 08:23:53 10/17/19 24 10/18/2023 CBC WITH DIFFE RENTI AL/PL ATELE T hematocrit 41.5 % 34.0-4 6.6 normal Not Available [facility] ([facility]) [address] [place], [address], 10/18/2023 08:23:53 10/17/19 24 10/18/2023 CBC WITH DIFFE RENTI AL/PL ATELE T MCV 95 fL 79-97 normal Not Available [facility] ([facility]) [address] [place], [address], 10/18/2023 08:23:53 10/17/19 24 10/18/2023 CBC WITH DIFFE RENTI AL/PL ATELE T MCH 29.4 pg 26.6-3 3.0 normal Not Available [facility] ([facility]) [address] [place], [address], 10/18/2023 08:23:53 10/17/19 24 10/18/2023 CBC WITH DIFFE RENTI AL/PL ATELE T MCHC 30.8 g/dL 31.5-3 5.7 below low normal Not Available [facility] ([facility]) [address] [facility], [place], [address], 10/18/2023 08:23:53 10/17/19 24 10/18/2023 CBC WITH DIFFE RENTI AL/PL ATELE T RDW 14.1 % 11.7-1 5.4 Not Available [facility] ([facility]) [address] [facility], [place], [address], 10/18/2023 08:23:53 10/17/19 24 10/18/2023 CBC WITH DIFFE RENTI AL/PL ATELE T platelets 219 x10e3 /uL 150-45 0 normal Not Available [facility] ([facility]) [address] [facility], [place], [address], 10/18/2023 08:23:53 10/17/19 24 10/18/2023 CBC WITH DIFFE RENTI AL/PL ATELE T neutrophils 47 % not estab. normal Not Available [facility] ([facility]) [address] [facility], [place], [address], 10/18/2023 08:23:53 10/17/19 24 10/18/2023 CBC WITH DIFFE RENTI AL/PL ATELE T lymphs 42 % not estab. normal Not Available [facility] ([facility]) [address] [facility], [place], [address], 10/18/2023 08:23:53 10/17/19 24 10/18/2023 CBC WITH DIFFE RENTI AL/PL ATELE T monocytes 7 % not estab. normal Not Available [facility] ([facility]) [address] [facility], [place], [address], 10/18/2023 08:23:53 10/17/19 24 10/18/2023 CBC WITH DIFFE RENTI AL/PL ATELE T eos 3 % not estab. normal Not Available [facility] ([facility]) [address] [place], [address], 10/18/2023 08:23:53 10/17/19 24 10/18/2023 CBC WITH DIFFE RENTI AL/PL ATELE T basos 1 % not estab. normal Not Available [facility] ([facility]) [address] [facility], [place], [address], 10/18/2023 08:23:53 10/17/19 24 10/18/2023 CBC WITH DIFFE RENTI AL/PL ATELE T immature cells SENIOR PROJECT ACCOUNTANT Not Available [facility] ([facility]) [address] [place], [address], 10/18/2023 08:23:53 10/17/19 24 10/18/2023 CBC WITH DIFFE RENTI AL/PL ATELE T neutrophils (absolute) 3.0 x10e3 /uL 1.4-7. 0 normal Not Available [facility] ([facility]) [address] [place], [address], 10/18/2023 08:23:53 10/17/19 24 10/18/2023 CBC WITH DIFFE RENTI AL/PL ATELE T lymphs (absolute) 2.7 x10e3 /uL 0.7-3. 1 normal Not Available [facility] ([facility]) [address] [place], [address], 10/18/2023 08:23:53 10/17/19 24 10/18/2023 CBC WITH DIFFE RENTI AL/PL ATELE T monocytes(ab solute) 0.5 x10e3 /uL 0.1-0. 9 normal Not Available [facility] ([facility]) [address] [place], [address], 10/18/2023 08:23:53 10/17/19 24 10/18/2023 CBC WITH DIFFE RENTI AL/PL ATELE T eos (absolute) 0.2 x10e3 /uL 0.0-0. 4 normal Not Available [facility] ([facility]) [address] [facility], [place], [address], 10/18/2023 08:23:53 10/17/19 24 10/18/2023 CBC WITH DIFFE RENTI AL/PL ATELE T baso (absolute) 0.0 x10e3 /uL 0.0-0. 2 normal Not Available [facility] ([facility]) [address] [facility], [place], [address], 10/18/2023 08:23:53 10/17/19 24 10/18/2023 CBC WITH DIFFE RENTI AL/PL ATELE T immature granulocytes 0 % not estab. Not Available [facility] ([facility]) [address] [facility], [place], [address], 10/18/2023 08:23:53 10/17/19 24 10/18/2023 CBC WITH DIFFE RENTI AL/PL ATELE T immature grans (abs) 0.0 x10e3 /uL 0.0-0. 1 Not Available [facility] ([facility]) [address] [facility], [place], [address], 10/18/2023 08:23:53 10/17/19 24 10/18/2023 CBC WITH DIFFE RENTI AL/PL ATELE T NRBC SENIOR PROJECT ACCOUNTANT Not Available [facility] ([facility]) [address] [facility], [place], [address], 10/18/2023 08:23:53 10/17/19 24 10/18/2023 CBC WITH DIFFE RENTI AL/PL ATELE T hematology comments: SENIOR PROJECT ACCOUNTANT Not Available [facility] ([facility]) [address] [facility], [place], [address], 10/18/2023 08:23:53 10/17/19 24 10/18/2023 COMP. METAB OLIC PANEL (14) glucose 93 mg/dL 70-99 normal Not Available [facility] ([facility]) [address] [place], [address], 10/18/2023 08:23:54 10/17/19 24 10/18/2023 COMP. METAB OLIC PANEL (14) BUN 19 mg/dL 8-27 normal Not Available [facility] ([facility]) [address] [place], [address], 10/18/2023 08:23:54 10/17/19 24 10/18/2023 COMP. METAB OLIC PANEL (14) creatinine 1.04 mg/dL 0.57-1 .00 above high normal Not Available [facility] ([facility]) [address] [place], [address], 10/18/2023 08:23:54 10/17/19 24 10/18/2023 COMP. METAB OLIC PANEL (14) eGFR 54 mL/mi n/1.7 3 >59 below low normal Not Available [facility] ([facility]) [address] [place], [address], 10/18/2023 08:23:54 10/17/19 24 10/18/2023 COMP. METAB OLIC PANEL (14) BUN/creatini ne ratio 18 12-28 normal Not Available [facility] ([facility]) [address] [place], [address], 10/18/2023 08:23:54 10/17/19 24 10/18/2023 COMP. METAB OLIC PANEL (14) sodium 141 mmol/ L 134-14 4 normal Not Available [facility] ([facility]) [address] [place], [address], 10/18/2023 08:23:54 10/17/19 24 10/18/2023 COMP. METAB OLIC PANEL (14) potassium 4.5 mmol/ L 3.5-5. 2 normal Not Available [facility] ([facility]) [address] [place], [address], 10/18/2023 08:23:54 10/17/19 24 10/18/2023 COMP. METAB OLIC PANEL (14) chloride 106 mmol/ L 96-106 normal Not Available [facility] ([facility]) [address] [place], [address], 10/18/2023 08:23:54 10/17/19 24 10/18/2023 COMP. METAB OLIC PANEL (14) carbon dioxide, total 22 mmol/ L 20-29 normal Not Available [facility] ([facility]) [address] [place], [id number], 10/18/2023 08:23:54 10/17/19 24 10/18/2023 COMP. METAB OLIC PANEL (14) calcium 9.9 mg/dL 8.7-10 .3 normal Not Available [facility] ([facility]) [address] [place], [address], 10/18/2023 08:23:54 10/17/19 24 10/18/2023 COMP. METAB OLIC PANEL (14) protein, total 6.8 g/dL 6.0-8. 5 normal Not Available [facility] ([facility]) [address] [place], [id number], 10/18/2023 08:23:54 10/17/19 24 10/18/2023 COMP. METAB OLIC PANEL (14) albumin 4.5 g/dL 3.8-4. 8 normal Not Available [facility] ([facility]) [address] [place], [address], 10/18/2023 08:23:54 10/17/19 24 10/18/2023 COMP. METAB OLIC PANEL (14) globulin, total 2.3 g/dL 1.5-4. 5 Not Available [facility] ([facility]) [address] [place], [id number], 10/18/2023 08:23:54 10/17/19 24 10/18/2023 COMP. METAB OLIC PANEL (14) bilirubin, total 0.2 mg/dL 0.0-1. 2 normal Not Available [facility] ([facility]) [address] [place], [address], 10/18/2023 08:23:54 10/17/19 24 10/18/2023 COMP. METAB OLIC PANEL (14) alkaline phosphatase 93 IU/L 44-121 normal Not Available [facility] ([facility]) [address] [place], [address], 10/18/2023 08:23:54 10/17/19 24 10/18/2023 COMP. METAB OLIC PANEL (14) AST (SGOT) 21 IU/L 0-40 normal Not Available [facility] ([facility]) [address] [facility], [place], [address], 10/18/2023 08:23:54 10/17/19 24 10/18/2023 COMP. METAB OLIC PANEL (14) ALT (SGPT) 27 IU/L 0-32 normal Not Available [facility] ([facility]) [address] [facility], [place], [address], 10/18/2023 08:23:54 10/17/19 24 10/18/2023 LIPID PANEL cholesterol, total 151 mg/dL 100-19 9 normal Not Available [facility] ([facility]) [address] [facility] [place], [address], 10/18/2023 08:23:55 10/17/19 24 10/18/2023 LIPID PANEL triglyceride s 152 mg/dL 0-149 above high normal Not Available [facility] ([facility]) [address] [facility] [place], [address], 10/18/2023 08:23:55 10/17/19 24 10/18/2023 LIPID PANEL HDL cholesterol 41 mg/dL >39 normal Not Available [facility] ([facility]) [address] [facility], [place], [address], 10/18/2023 08:23:55 10/17/19 24 10/18/2023 LIPID PANEL VLDL cholesterol shazia 27 mg/dL 5-40 Not Available [facility] ([facility]) [address] [place], [address], 10/18/2023 08:23:55 10/17/19 24 10/18/2023 LIPID PANEL LDL chol calc ([facility]) 83 mg/dL 0-99 Not Available [facility] ([facility]) [address] [facility], [place], [address], 10/18/2023 08:23:55 10/17/19 24 10/18/2023 LIPID PANEL LDL calc comment: SENIOR PROJECT ACCOUNTANT Not Available [facility] ([facility]) [address] [facility], [place], [address], 10/18/2023 08:23:55 10/17/19 24 10/18/2023 VITAM IN D, 25-HY DROXY vitamin D, 25-hydroxy 35.5 NG/mL 30.0-1 00.0 Vitam in D defic iency has been defin ed by the Insti tute of Medic ine and an Endoc rine Socie ty pract ice guide line as a level of serum 25-OH vitam in D less than 20 ng/mL (1,2) . The Endoc rine Socie ty went on to furth er defin e vitam in D insuf ficie ncy as a level betwe en 21 and 29 ng/mL (2). 1. IOM (Inst itute of Medic ine). 2010. Dieta ry refer ence intak es for calci um and D. Marshall rod [place]: The [facility] . 2. Adis alcantara [place], Radha vasquez [place], Starr off-F errar i GALINDO, et al. Evalu ation , treat ment, and preve ntion of vitam in D defic iency : an Endoc rine Socie ty clini shazia pract ice guide line. JCEM. 2010; 96(7) :1911 -30. Not Available [facility] ([facility]) [address] [facility], [place], [address], 10/18/2023 08:23:55 10/17/19 24 10/18/2023 URIC ACID uric acid 3.5 mg/dL 3.1-7. 9 normal Thera peuti c targe t for gout patie nts: <6.0 Not Available [facility] ([facility]) [address] [place], [address], 10/18/2023 08:23:56 10/17/19 24 10/18/2023 MAGNE SIUM magnesium 1.9 mg/dL 1.6-2. 3 normal Not Available [facility] ([facility]) [address] [place], [address], 10/18/2023 08:23:57 04/09/19 25 04/10/2024 CBC WITH DIFFE RENTI AL/PL ATELE T WBC 5.6 x10e3 /uL 3.4-10 .8 normal Not Available [facility] ([facility]) [address] [place], [address], 04/10/2024 08:23:06 04/09/19 25 04/10/2024 CBC WITH DIFFE RENTI AL/PL ATELE T RBC 4.31 x10e6 /uL 3.77-5 .28 normal Not Available [facility] ([facility]) [address] [place], [address], 04/10/2024 08:23:06 04/09/19 25 04/10/2024 CBC WITH DIFFE RENTI AL/PL ATELE T hemoglobin 12.7 g/dL 11.1-1 5.9 normal Not Available [facility] ([facility]) [address] [place], [address], 04/10/2024 08:23:06 04/09/19 25 04/10/2024 CBC WITH DIFFE RENTI AL/PL ATELE T hematocrit 39.4 % 34.0-4 6.6 normal Not Available [facility] ([facility]) [address] [place], [address], 04/10/2024 08:23:06 04/09/1904/10/2024 CBC WITH DIFFE RENTI AL/PL ATELE T MCV 91 fL 79-97 normal Not Available [facility] ([facility]) [address] [place], [address], 04/10/2024 08:23:06 04/09/19 25 04/10/2024 CBC WITH DIFFE RENTI AL/PL ATELE T MCH 29.5 pg 26.6-3 3.0 normal Not Available [facility] ([facility]) [address] [place], [address], 04/10/2024 08:23:06 04/09/19 25 04/10/2024 CBC WITH DIFFE RENTI AL/PL ATELE T MCHC 32.2 g/dL 31.5-3 5.7 normal Not Available [facility] ([facility]) [address] [place], [address], 04/10/2024 08:23:06 04/09/1904/10/2024 CBC WITH DIFFE RENTI AL/PL ATELE T RDW 13.8 % 11.7-1 5.4 Not Available [facility] ([facility]) [address] [place], [address], 04/10/2024 08:23:06 04/09/19 25 04/10/2024 CBC WITH DIFFE RENTI AL/PL ATELE T platelets 237 x10e3 /uL 150-45 0 normal Not Available [facility] ([facility]) [address] [place], [address], 04/10/2024 08:23:06 04/09/19 25 04/10/2024 CBC WITH DIFFE RENTI AL/PL ATELE T neutrophils 50 % not estab. normal Not Available [facility] ([facility]) [address] [facility], [place], [address], 04/10/2024 08:23:06 04/09/19 25 04/10/2024 CBC WITH DIFFE RENTI AL/PL ATELE T lymphs 36 % not estab. normal Not Available [facility] ([facility]) [address] [facility], [place], [address], 04/10/2024 08:23:06 04/09/19 25 04/10/2024 CBC WITH DIFFE RENTI AL/PL ATELE T monocytes 8 % not estab. normal Not Available [facility] ([facility]) [address] [facility], [place], [address], 04/10/2024 08:23:06 04/09/19 25 04/10/2024 CBC WITH DIFFE RENTI AL/PL ATELE T eos 4 % not estab. normal Not Available [facility] ([facility]) [address] [facility], [place], [address], 04/10/2024 08:23:06 04/09/19 25 04/10/2024 CBC WITH DIFFE RENTI AL/PL ATELE T basos 1 % not estab. normal Not Available [facility] ([facility]) [address] [facility], [place], [address], 04/10/2024 08:23:06 04/09/19 25 04/10/2024 CBC WITH DIFFE RENTI AL/PL ATELE T immature cells SENIOR PROJECT ACCOUNTANT Not Available [facility] ([facility]) [address] [facility], [place], [address], 04/10/2024 08:23:06 04/09/19 25 04/10/2024 CBC WITH DIFFE RENTI AL/PL ATELE T neutrophils (absolute) 2.9 x10e3 /uL 1.4-7. 0 normal Not Available [facility] ([facility]) [address] [place], [address], 04/10/2024 08:23:06 04/09/19 25 04/10/2024 CBC WITH DIFFE RENTI AL/PL ATELE T lymphs (absolute) 2.0 x10e3 /uL 0.7-3. 1 normal Not Available [facility] ([facility]) [address] [place], [address], 04/10/2024 08:23:06 04/09/19 25 04/10/2024 CBC WITH DIFFE RENTI AL/PL ATELE T monocytes(ab solute) 0.4 x10e3 /uL 0.1-0. 9 normal Not Available [facility] ([facility]) [address] [facility], [place], [address], 04/10/2024 08:23:06 04/09/19 25 04/10/2024 CBC WITH DIFFE RENTI AL/PL ATELE T eos (absolute) 0.2 x10e3 /uL 0.0-0. 4 normal Not Available [facility] ([facility]) [address] [place], [address], 04/10/2024 08:23:06 04/09/19 25 04/10/2024 CBC WITH DIFFE RENTI AL/PL ATELE T baso (absolute) 0.1 x10e3 /uL 0.0-0. 2 normal Not Available [facility] ([facility]) [address] [place], [address], 04/10/2024 08:23:06 04/09/19 25 04/10/2024 CBC WITH DIFFE RENTI AL/PL ATELE T immature granulocytes 1 % not estab. Not Available [facility] ([facility]) [address] [place], [address], 04/10/2024 08:23:06 04/09/19 25 04/10/2024 CBC WITH DIFFE RENTI AL/PL ATELE T immature grans (abs) 0.0 x10e3 /uL 0.0-0. 1 Not Available [facility] ([facility]) [address] [facility], [place], [address], 04/10/2024 08:23:06 04/09/19 25 04/10/2024 CBC WITH DIFFE RENTI AL/PL ATELE T NRBC SENIOR PROJECT ACCOUNTANT Not Available [facility] ([facility]) [address] [facility], [place], [address], 04/10/2024 08:23:06 04/09/19 25 04/10/2024 CBC WITH DIFFE RENTI AL/PL ATELE T hematology comments: SENIOR PROJECT ACCOUNTANT Not Available [facility] ([facility]) [address] [facility], [place], [address], 04/10/2024 08:23:06 04/09/19 25 04/10/2024 COMP. METAB OLIC PANEL (14) glucose 97 mg/dL 70-99 normal Not Available [facility] ([facility]) [address] [facility], [place], [address], 04/10/2024 08:23:07 04/09/19 25 04/10/2024 COMP. METAB OLIC PANEL (14) BUN 26 mg/dL 8-27 normal Not Available [facility] ([facility]) [address] [facility], [place], [address], 04/10/2024 08:23:07 04/09/19 25 04/10/2024 COMP. METAB OLIC PANEL (14) creatinine 1.31 mg/dL 0.57-1 .00 above high normal Not Available [facility] ([facility]) [address] [facility], [place], [address], 04/10/2024 08:23:07 04/09/19 25 04/10/2024 COMP. METAB OLIC PANEL (14) eGFR 41 mL/mi n/1.7 3 >59 below low normal Not Available [facility] ([facility]) [address] [place], [address], 04/10/2024 08:23:07 04/09/19 25 04/10/2024 COMP. METAB OLIC PANEL (14) BUN/creatini ne ratio 20 -28 normal Not Available [facility] ([facility]) [address] [place], [address], 04/10/2024 08:23:07 04/09/19 25 04/10/2024 COMP. METAB OLIC PANEL (14) sodium 140 mmol/ L 134-14 4 normal Not Available [facility] ([facility]) [address] [place], [address], 04/10/2024 08:23:07 04/09/19 25 04/10/2024 COMP. METAB OLIC PANEL (14) potassium 4.5 mmol/ L 3.5-5. 2 normal Not Available [facility] ([facility]) [address] [place], [address], 04/10/2024 08:23:07 04/09/19 25 04/10/2024 COMP. METAB OLIC PANEL (14) chloride 106 mmol/ L 96-106 normal Not Available [facility] ([facility]) [address] [place], [address], 04/10/2024 08:23:07 04/09/19 25 04/10/2024 COMP. METAB OLIC PANEL (14) carbon dioxide, total 21 mmol/ L 20-29 normal Not Available [facility] ([facility]) [address] [place], [address], 04/10/2024 08:23:07 04/09/19 25 04/10/2024 COMP. METAB OLIC PANEL (14) calcium 9.6 mg/dL 8.7-10 .3 normal Not Available [facility] ([facility]) [address] [facility] [place], [address], 04/10/2024 08:23:07 04/09/19 25 04/10/2024 COMP. METAB OLIC PANEL (14) protein, total 6.8 g/dL 6.0-8. 5 normal Not Available [facility] ([facility]) [address] [facility] [place], [address], 04/10/2024 08:23:07 04/09/19 25 04/10/2024 COMP. METAB OLIC PANEL (14) albumin 4.5 g/dL 3.7-4. 7 normal Not Available [facility] ([facility]) [address] [facility] [place], [address], 04/10/2024 08:23:07 04/09/19 25 04/10/2024 COMP. METAB OLIC PANEL (14) globulin, total 2.3 g/dL 1.5-4. 5 Not Available [facility] ([facility]) [address] [facility] [place], [address], 04/10/2024 08:23:07 04/09/19 25 04/10/2024 COMP. METAB OLIC PANEL (14) bilirubin, total 0.3 mg/dL 0.0-1. 2 normal Not Available [facility] ([facility]) [address] [facility] [place], [address], 04/10/2024 08:23:07 04/09/19 25 04/10/2024 COMP. METAB OLIC PANEL (14) alkaline phosphatase 124 IU/L 44-121 above high normal Not Available [facility] ([facility]) [address] [facility] [place], [address], 04/10/2024 08:23:07 04/09/19 25 04/10/2024 COMP. METAB OLIC PANEL (14) AST (SGOT) 24 IU/L 0-40 normal Not Available [facility] ([facility]) [address] [facility] [place], [address], 04/10/2024 08:23:07 04/09/19 25 04/10/2024 COMP. METAB OLIC PANEL (14) ALT (SGPT) 23 IU/L 0-32 normal Not Available [facility] ([facility]) [address] [facility] [place], [address], 04/10/2024 08:23:07 04/09/19 25 04/10/2024 LIPID PANEL cholesterol, total 154 mg/dL 100-19 9 normal Not Available [facility] ([facility]) [address] [facility] [place], [address], 04/10/2024 08:23:09 04/09/19 25 04/10/2024 LIPID PANEL triglyceride s 229 mg/dL 0-149 above high normal Not Available [facility] ([facility]) [address] [place], [address], 04/10/2024 08:23:09 04/09/19 25 04/10/2024 LIPID PANEL HDL cholesterol 35 mg/dL >39 below low normal Not Available [facility] ([facility]) [address] [place], [address], 04/10/2024 08:23:09 04/09/19 25 04/10/2024 LIPID PANEL VLDL cholesterol shazia 38 mg/dL 5-40 Not Available [facility] ([facility]) [address] [place], [address], 04/10/2024 08:23:09 04/09/19 25 04/10/2024 LIPID PANEL LDL chol calc ([facility]) 81 mg/dL 0-99 Not Available [facility] ([facility]) [address] [facility] [place], [address], 04/10/2024 08:23:09 04/09/19 25 04/10/2024 LIPID PANEL LDL calc comment: SENIOR PROJECT ACCOUNTANT Not Available [facility] ([facility]) [address] [facility], [place], [address], 04/10/2024 08:23:09 04/09/19 25 04/10/2024 VITAM IN D, 25-HY DROXY vitamin D, 25-hydroxy 33.0 NG/mL 30.0-1 00.0 Vitam in D defic iency has been defin ed by the Insti tute of Medic ine and an Endoc rine Socie ty pract ice guide line as a level of serum 25-OH vitam in D less than 20 ng/mL (1,2) . The Endoc rine Socie ty went on to furth er defin e vitam in D insuf ficie ncy as a level betwe en 21 and 29 ng/mL (2). 1. IOM (Inst itute of Medic ine). 2010. Dieta ry refer ence meg es for calci um and D. Marshall rod [place]: [facility] . 2. Adis alcantara MF, Radha vasquez [place], Starr off-F errar i GALINDO, et al. Evalu ation , treat ment, and preve ntion of vitam in D defic iency : an Endoc rine Socie ty clini shazia pract ice guide line. JCEM. 2010; 96(7) :1911 -30. Not Available [facility] ([facility]) [address] [facility], [place], [address], 04/10/2024 08:23:10 04/09/19 25 04/10/2024 URIC ACID uric acid 3.6 mg/dL 3.1-7. 9 normal Thera peuti c targe t for gout patie nts: <6.0 Not Available [facility] ([facility]) [address] [place], [address], 04/10/2024 08:23:11 04/09/19 25 04/10/2024 MAGNE SIUM magnesium 1.9 mg/dL 1.6-2. 3 normal Not Available [facility] ([facility]) [address] [facility], [place], [address], 04/10/2024 08:23:12 05/09/1905/09/2024 MAMMO , fifi grayson, digit al, bilat eral [facility] Ce Name: KELY PIERSON [facility]ica l [employer] [address] Phys: Lucia hunter MD, [place] [address] : 1944 Age: 79 Sex: F Acct: [id number] Loc: G.MAMM PHONE #: Exam Date: 2024 Status : DEP CLI FAX #: Rad# [id number] Unit# [id number] Admit Date: 2024 EXAMS: CPT CODE: [id number] SCN DIG BREAST TOMOSY N BRENNA 05936 EXAMIN ATION: SCN DIG BREAST TOMOSY N BRENNA HISTOR Y: SCREEN ING COMPAR LI: 023, 2017 and 2016 TECHNI QUE: Bilate ral screen ing mammog mayelin. CC and MLO views of both breast s were obtain ed with combin ation 2-D mammog mayelin (DM)/d igital breast tomosy nthesi s (DBT) and interp reted with CAD. FINDIN GS: Breast Densit y: C - The breast tissue is hetero geneou sly dense, which may obscur e small masses . Benign bilate ral secret ory calcif icatio ns. No suspic ious calcif icatio ns, masses , or areas of mayuri ectura l distor tion on either side. The appear ance is stable since the previo us mammog mayelin. IMPRES FROYLAN: 1. No mammog raphic eviden ce of malign sven. 2. Recomm end annual screen ing mammog axel unless there is interv al clinic al concer n. BI-RAD S CATEGO RY: CATEGO RY 2, BENIGN FINDIN GS RECOMM ENDATI ON: ANNUAL SCREEN ING IN 12 MONTHS Electr onical ly signed by: Avery Hill MD 2024 11:21 AM EST RP Workst ation: SEALWR [id number] [facility] FOLLOW -UP CODE Electr onical ly Signed by AVERY HILL on 2024 at 1114 Report ed and signed by: SCHUYLER VELAZQUEZ PAGE 1 Signed Report (MIRANDA NULEANNA) Roberts [facility] Ce Name: KELY PIERSON [address] [place] [address] Phys: Lucia hunter MD, [place] [address] : 1944 Age: 79 Sex: F Acct: [id number] Loc: G.MAMM PHONE #: Exam Date: 2024 Status : DEP CLI FAX #: Rad# [id number] Unit# [id number] Admit Date: 2024 EXAMS: CPT CODE: [id number] SCN DIG BREAST TOMOSY N BRENNA 00578 CC: David hunter MD Dictat ed Date/T elizabeth: 2024 (1114) Techno logist : DAX DEMPSEY (RT)(R ) Transc ribed Date/T elizabeth: 2024 (1114) Transc riptio nist: DR.EDM ROMI Chacon onic Signat ure Date/T elizabeth: 2024 (1114) Printe d Date/T elizabeth: 2024 (1124) BATCH NO: N/A PAGE 2 Signed Report CC'ed Logic: Orderi ng Provid er: LUCIA HERNANDEZ Attend ing Provid er: LUCIA HERNANDEZ Referr ing Provid er: LUCIA HERNANDEZ Consul ting Provid er: LUCIA RICE [address] [place], [address], 05/16/2024 13:45:17 Result Notes Documentation Provider Name and Address Organization Details Recorded Time Mammo, Screening, Digital, Bilateral : [facility] Ce Name: CONNORBeenaTIGIST Replaced by [facility] [email or web address] [facility] Phys: David [place]ía [place] [address] : 1945 Age: 79 Sex: F Acct: [id number] Loc: Taina.MAMM PHONE #: Exam Date: 05/08/2024 Status: DEP CLI FAX #: Rad# [id number] Unit# [id number] Admit Date: 05/08/2024 EXAMS: CPT CODE: [id number] SCN DIG BREAST TOMOSYN BRENNA 67490 EXAMINATION: SCN DIG BREAST TOMOSYN BRENNA HISTORY: SCREENING COMPARISON: 11/09/2022, 01/27/2018 and 01/25/2017 TECHNIQUE: Bilateral screening mammogram. CC and MLO views of both breasts were obtained with combination 2-D mammogram (DM)/digital breast tomosynthesis (DBT) and interpreted with CAD. FINDINGS: Breast Density: C - The breast tissue is heterogeneously dense, which may obscure small masses. Benign bilateral secretory calcifications. No suspicious calcifications, masses, or areas of architectural distortion on either side. The appearance is stable since the previous mammogram. IMPRESSION: 1. No mammographic evidence of malignancy. 2. Recommend annual screening mammography unless there is interval clinical concern. BI-RADS CATEGORY: CATEGORY 2, BENIGN FINDINGS RECOMMENDATION: ANNUAL SCREENING IN 12 MONTHS Electronically signed by: Pauline Ariza MD 05/09/2024 11:21 AM [facility] FOLLOW-UP CODE at 1114 Reported and signed by: PAULINE ARIZA PAGE 1 Signed Report (CONTINUED) [facility] Ce Name: TIGIST WHITTEN [address] [place] [address] Phys: Ricky ORTEZ, [place] [address] : 1945 Age: 79 Sex: F Acct: [id number] Loc: Taina.MAMM PHONE #: Exam Date: 05/08/2024 Status: DEP CLI FAX #: Rad# [id number] Unit# [id number] Admit Date: 05/08/2024 EXAMS: CPT CODE: [id number] SCN DIG BREAST TOMOSYN BRENNA [id number] CC: David García MD Dictated Date/Time: 05/09/2024 (1114) Technologist: LAKESHIA DEMPSEY (RT)(R) Transcribed Date/Time: 05/09/2024 (1114) Commercial Director: Electronic Signature Date/Time: 05/09/2024 (1114) Printed Date/Time: 05/09/2024 (1124) BATCH NO: N/A PAGE 2 Signed Report CC'ed Logic: Ordering Provider: RICKY HERNANDEZ Attending Provider: RICKY HERNANDEZ Referring Provider: RICKY HERNANDEZ Consulting Provider: RICKY HERNANDEZ Not Available [facility] 05/16/2024 13:45:17 Problems Name Problem SNOMED Code Status Onset Date Resolution Date Notes Provider Name and Address Organization Details Recorded Time Fracture of multiple ribs 7697649 Active 2023 David okeefe MD [address] [place] [address],[address] [place] [address], [address] , [facility] & [place] 4 12:04:25 Bacterial vaginosis 187339510 Active 2024 David okeefe MD [address] [place] [address],[address] [place] [address], [address] , [facility] & [place] 5 13:20:56 Pain in finger of right hand 6581804699241 09 Active 2024 David okeefe MD [address] [place] [address],[address] [place] [address], [address] , [facility] & [place] 5 13:28:06 Essential hypertensi on 36128142 Active Not Available [facility] 3 06:03:26 Osteoporos is 01141335 Active Not Available [facility] 3 06:03:26 Venous insufficie ncy of leg 944677383 Active Not Available [facility] 3 06:03:26 Generalize d osteoarthr itis 259456887 Active 2022 Not Available [facility] 3 06:03:26 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 602398292 Active 2022 Not Available [facility] 3 06:03:26 Vitamin D deficiency 00476167 Active 2022 Not Available [facility] 3 06:03:26 Polyneurop athy 86029691 Active 2022 Not Available [facility] 3 06:03:26 Dyspnea on exertion 17821465 Active 2022 Not Available [facility] 3 06:03:26 Inappropri ate sinus tachycardi a 022381451 Active 2022 Not Available [facility] 3 06:03:26 Left ventricula r diastolic dysfunctio n 485664507 Active 2022 Not Available [facility] 3 06:03:26 Contusion of right foot 4817994045265 9103 Active 2022 David okeefe MD [address] [place] [address], [address] , [facility] & [place] 3 10:40:57 Standardiz ed adult depression screening tool completed 7899979009890 07 Active 2023 David okeefe MD [address] [place] [address],[address], [address] , [facility] & [place] 4 16:48:07 Pain of right knee joint 1310345808260 00 Active 2023 David okeefe MD [address] [place] [address] [place] [address], [address] , [facility] & [place] 4 16:48:13 Postmenopa [place] state 05098334 Active 2023 David okeefe MD [address] [place] [address],[address], [address] , [facility] & [place] 4 12:12:35 Screening mammograph y of bilateral breasts Active 2023 David okeefe MD [address] [place] [address],[address], [place], [address] , [facility] - [facility] & [place] 4 12:12:37 Advance care planning Active 2023 David okeefe MD [address] [place] [address],[address], [place], [address] , [facility] - [facility] & [place] 4 12:12:54 Adult health examinatio n Active 2023 David okeefe MD [address] [place] [address],[address], [place], [address] , [facility] - NT [facility] & [place] 4 12:12:58 Notes:Some problems listed i n Documents: #[id number], #[id number], #[id number] could not be added to this patient's chart. Please review these documents and add these problems to the patient's chart manually as needed. Problem Notes None recorded. Procedures Surgical History Date Name Laterality Status Provider Name and Address Organization Details Recorded Time 10/03/19 24 Joint Injection completed David García MD [address] [place] [address],[address], [place], [address], [facility] - NT [facility] & [place] 10/03/2023 16:44:48 11/12/19 23 Joint Injection completed David García MD [address] [place] [address],[address], [place], [address], [facility] - [facility] & [place] 11/11/2022 15:09:26 Total Hysterectomy completed Alea Mayfieldkay [place] - [facility] & [place] 03/16/2022 07:59:21 Imaging Results None recorded. Procedure Notes None recorded. Medical Equipment None Reported. Allergies Allergen ID Allergen Name Allergen Category Reaction Reaction Severity Criticality Documentation Date Start Date Code Code System Note Provider Name and Address Organization Details Recorded Time 27527 gabapenti n medicatio n Not available Not available Not available 03/16/2022 27872 RxNorm Aleachana lock, [place] - [facility] & [place] 3 07:52:07 51699 Lyrica medicatio n Not available Not available Not available 03/16/2022 83233 1 RxNorm Alea lock, [place] LOZ[place] - [place] & [place] 3 07:52:19 16252 ropinirol e medicatio n Not available Not available Not available 03/16/2022 03658 RxNorm Alea lock, [place] Warner [facility] - [place] & [place] 3 07:52:28 Medications Name Sig Start Date Stop Date Status Note LastModified by Organization Details LastModified Time aspirin 325 mg tablet Take 1 tablet every day by oral route. 12/06 completed Not Available Not Available Not Available amitripty line 75 mg tablet Take 1 tablet every day by oral route at bedtime for 90 days. 03/16 completed Not Available Not Available Not Available metoprolo l succinate ER 50 mg tablet,ex tended release 24 hr Take 1 tablet every day by oral route for 90 days. 2024 active Not Available Not Available Not Avai lable metronida zole 0.75 % (37.5 mg/5 gram) vaginal gel Insert 1 applicat orful every day by vaginal route as directed for 7 days, for vaginal irritati on. 2024 active Not Available Not Available Not Avai lable dexametha sone 4 mg tablet Take 1 tablet twice a day by oral route for 5 days. 11/23 completed Not Available Not Available Not Available triamtere ne 37.5 mg-hydroc hlorothia zide 25 mg tablet Take 1 tablet every day by oral route for 90 days. 04/09 completed suspicio n she is signific antly orthosta tic and a fall risk secondar y to its use Not Available Not Available Not Available allopurin ol 300 mg tablet Take 1 tablet every day by oral route as directed for 90 days. 2024 active Not Available Not Available Not Avai lable cefuroxim e axetil 500 mg tablet Take 1 tablet every 12 hours by oral route for 10 days. 11/23 completed Not Available Not Available Not Available albuterol sulfate HFA 90 mcg/actua tion aerosol inhaler Inhale 2 puffs every 4 hours by inhalati on route as needed. 09/06 completed Not Available Not Available Not Available colchicin e 0.6 mg tablet Take 1 tablet twice a day by oral route as directed for 90 days. 10/16 completed Not Available Not Available Not Available amitripty line 100 mg tablet Take 1 tablet every day by oral route for 90 days. 2024 active Not Available Not Available Not Avai lable azithromy angela 500 mg tablet Take 1 tablet every day by oral route for 7 days. 11/23 completed Not Available Not Available Not Available Golytely 236 gram-22.7 4 gram-6.74 gram-5.86 gram oral solution Take as directed by staff in Dr. Trotter's office 03/15 completed Not Available Not Available Not Available Vitamin D3 125 mcg (5,000 unit) tablet Take 1 tablet every day by oral route. active Not Available Not Available No t Available Suprep Bowel Prep Kit 17.5 gram-3.13 gram-1.6 gram oral solution Take as directed by staff in Dr. Trotter's office active Not Available Not Available No t Available Vitals Date Recorded Body height Body mass index (BMI) Body weight Body temperature Oxygen saturation Oxygen saturation in Arterial blood by Pulse oximetry Heart rate Respiratory rate Systolic blood pressure Diastolic blood pressure Provider Name and Address Organization Details Last Updated DateTime 5 160.02 cm 25.4 kg/m2 83523.8 1 g 97.6 [degF] 98 % 98 % 75 /min 18 /min 130 mm[Hg] 76 mm[Hg] Rebekah Meyer [place] - [facility] 5 11:02:03 Date Recorded Body height Body mass index (BMI) Body weight Body temperature Oxygen saturation Oxygen saturation in Arterial blood by Pulse oximetry Heart rate Respiratory rate Systolic blood pressure Diastolic blood pressure Provider Name and Address Organization Details Last Updated DateTime 5 160.02 cm 26.2 kg/m2 45182.6 7 g 97.6 [degF] 97 % 97 % 82 /min 18 /min 146 mm[Hg] 80 mm[Hg] Rebekah Meyer [place] - [facility] & [place] 5 08:49:07 Date Recorded Body height Body mass index (BMI) Body weight Body temperature Oxygen saturation Oxygen saturation in Arterial blood by Pulse oximetry Heart rate Respiratory rate Systolic blood pressure Diastolic blood pressure Provider Name and Address Organization Details Last Updated DateTime 4 160.02 cm 26.6 kg/m2 14682.5 7 g 97.3 [degF] 94 % 94 % 74 /min 16 /min 124 mm[Hg] 72 mm[Hg] Jamel Roland [facility] & [place] 4 11:35:45 Date Recorded Body height Body mass index (BMI) Body weight Body temperature Oxygen saturation Oxygen saturation in Arterial blood by Pulse oximetry Heart rate Respiratory rate Systolic blood pressure Diastolic blood pressure Provider Name and Address Organization Details Last Updated DateTime 4 160.02 cm 26.6 kg/m2 76120.5 6 g 97.6 [degF] 97 % 97 % 110 /min 18 /min 130 mm[Hg] 80 mm[Hg] Rebekah Meyer [facility] & [place] 4 10:19:02 Social History Question Answer Notes LastModified by Tapdaqat ion Details LastModified Time Tobacco Smoking Status Never [facility]oker [facility] [place] 03/16/2022 07:59:05 Do You Have An Advance Directive? Yes Information not available 09/06/2022 Are You Blind Or Do You Have Difficulty Seeing? No Information not available 09/06/2022 Is Blood Transfusion Acceptable In An Emergency? Yes Information not available 09/06/2022 What Is Your Level Of Caffeine Consumption? Moderate Information not available 09/06/2022 Have You Been To An Area Known To Be High Risk For COVID-19? No Information not available 09/06/2022 Are You Deaf Or Do You Have Serious Difficulty Hearing? No Information not available 09/06/2022 What Type Of Diet Are You Following? REGULAR Information not available 09/06/2022 Have There Been Any Changes To Your Family Or Social Situation? No Information not available 09/06/2022 What Is The Fluoride Status Of Your Home? Fluoridated Information not available 09/06/2022 In General, Would You Say Your Health Is Good Information not available 09/06/2022 How Would You Describe The Condition Of Your Mouth And Teeth including False Teeth Or Dentures? Very Good Information not available 09/06/2022 In The Past 7 Days, How Many Servings Of Fruits And Vegetables Did You Typically Eat Each Day? (1 Serving = 1 Cup Of Fresh Vegetables, 1 2 Cup Of Cooked Vegetables, Or 1 Medium Piece Of Fruit. 1 Cup = Size Of A Baseball.) 1-2 Servings Per Day Information not available 09/06/2022 In The Past 7 Days, How Many Servings Of High Fiber Or Whole Grain Foods Did You Typically Eat Each Day? (1 Serving = 1 Slice Of 100% Whole Wheat Bread, 1 Cup Of Whole-grain Or High-fiber Uvvku-ze-xuv Cereal, 1 2 Cup Of Cooked Cereal Such As Oatmeal, Or 1 2 Cup Of Cooked Brown Rice Or Whole Wheat Pasta.) 1-2 Servings Per Day Information not available 09/06/2022 In The Past 7 Days, How Many Servings Of Fried Or High-fat Foods Did You Typically Eat Each Day? (Examples Include Fried Chicken, Fried Fish, Plasencia, Korean Weed, Potato Chips, [place] Chips, Doughnuts, Creamy Salad Dressings, And Foods Made With Whole Milk, Cream, Cheese, Or Mayonnaise.) 1-2 Servings Per Day Information not available 09/06/2022 In The Past 7 Days, How Many Sugar-sweetened (not Diet) Beverages Did You Typically Consume Each Day 1-2 Drinks Per Day Information not available 09/06/2022 Each Night, How Many Hours Of Sleep Do You Usually Get? 6-7 Hours Information not available 09/06/2022 Do You Snore Or Has Anyone Told You That You Snore? No Information not available 09/06/2022 In The Past 7 Days, How Often Have You [place] Sleepy During The Daytime? Rarely Information not available 09/06/2022 Do You Have Chronic Pain? Yes Information not available 09/06/2022 If Yes, Location Of Pain Legs, Hands Information not available 09/06/2022 In The Past 7 Days, How Would You Rate Your Pain? Moderate Pain(4-6) Information not available 09/06/2022 Are You In A Pain Management Program? No Information not available 09/06/2022 Do You Take Opioids For Your Pain? No Information not available 09/06/2022 How Often Is Stress A Problem For You In Handling Such Things As: Your Health, Your Finances, Your Family And Social Relationships, Your Work? Never Or Rarely Information not available 09/06/2022 How Often Do You Get The Social And Emotional Support You Need: Always Information not available 09/06/2022 In The Past 7 Days, Did You Need Help From Others To Take Care Of Things Such As Laundry And Housekeep- Ing, Banking, Shopping, Using The Telephone, Food Preparation, Transportation, Or Taking Your Own Medications? No Information not available 09/06/2022 Do You Live Alone? Yes Information not available 09/06/2022 Does Your Home Have Any Fall Risks (un-level Floors, Unfastened Rugs, Poor Lighting, Etc)? No Information not available 09/06/2022 What Was The Date Of Your Most Recent Tobacco Screening? 04/09/2024 [email or web address] Information not available 04/09/2024 Do You Have Any Pets? No Information not available 09/06/2022 What Is Your Relationship Status? Information not available 09/06/2022 Do You Use Your Seat Belt Or Car Seat Routinely? Yes Information not available 09/06/2022 Are You Sexually Active? No Information not available 09/06/2022 Do You Have Smoke And Carbon Monoxide Detectors In Your Home? Yes Information not available 09/06/2022 Are You Passively Exposed To Smoke? No Information not available 09/06/2022 Do You Use Sunscreen Routinely? Yes Information not available 09/06/2022 Has Tobacco Cessation Counseling Been Provided? No [email or web address] Information not available 02/14/2024 Do You Have Difficulty Walking Or Climbing Stairs? Yes Information not available 09/06/2022 Are You Currently In School? No Information not available 09/06/2022 Sex: Female Functional Status Question Answer Note LastModified by Organizat ion Details LastModified Time Do you use any illicit or recreational drugs? No Information not available 03/16/2022 Do you or have you ever used any other forms of tobacco or nicotine? No Information not available 03/16/2022 What is your level of alcohol consumption? None Information not available 03/16/2022 Are you currently employed? No Information not available 09/06/2022 Do you have transportation difficulties? No Information not available 09/06/2022 Are you able to walk? YESWOREST Information not available 09/06/2022 Do you have difficulty doing errands alone? Yes Information not available 09/06/2022 Are you able to care for yourself? Yes Information n ot available 09/06/2022 Do you have difficulty dressing or bathing? No Information not available 09/06/2022 What is your exercise level? Occasional Information not available 09/06/2022 Mental Status Question Answer Note LastModified by Organizat ion Details LastModified Time Do you feel stressed (tense, restless, nervous, or anxious, or unable to sleep at night)? [id number] Information not available 09/06/2022 Do you have difficulty concentrating, remembering or making decisions? No Information no t available 09/06/2022 Family History Relationship Description Onset Age of this Age Resolved Age Notes LastModified by Organization Details LastModified Time Mother Malignant neoplastic disease [email or web address] Not available 2022 07:58:35 Medical History Condition Response Coronary Artery Disease N None N Gout N Kidney Stones N Hyperthyroidism N Depression N COPD N Hypothyroidism N Difficulty Swallowing N Anxiety Disorder N Meniere's disease N Obesity N Arthritis Y Mental Disorder N Cancer N Stroke N High Cholesterol N Liver Disease N Fibromyalgia N Kidney Disease N Anemia N MRSA exposure N Diabetes N Tuberculosis N AIDS/HIV N Congestive Heart Failure (CHF) N Diverticulitis N Asthma N Reflux/GERD N Jaundice N Heart Disease N Pulmonary Embolism N Chronic Ear Infections N Hypertension Y Osteoporosis N Gynecological HistoryNo gynecological history recorded. Obstetrics History GPAL:G 0 P 0 0 0 0 Immunizations Vaccine Type Date Status Note Provider Nam e and Address Organization Details Recorded Time Influenza, split virus, quadrivalent, PF 9 completed Not Available [facility] 12/01/2022 06:03:26 COVID-19, mRNA, LNP-S, PF, 100 mcg/0.5mL dose or 50 mcg/0.25mL dose 1 completed Not Available [facility] 12/01/2022 06:03:26 Influenza, split virus, quadrivalent, PF 0 completed Not Available [facility] 12/01/2022 06:03:26 Influenza, split virus, quadrivalent, PF 1 completed Not Available [facility] 12/01/2022 06:03:26 COVID-19, mRNA, LNP-S, PF, 100 mcg/0.5mL dose or 50 mcg/0.25mL dose 1 completed Not Available [facility] 12/01/2022 06:03:26 Influenza, split virus, trivalent, preservative 7 completed Not Available [facility] 12/01/2022 06:03:26 COVID-19, mRNA, LNP-S, PF, 100 mcg/0.5mL dose or 50 mcg/0.25mL dose 1 completed Not Available [facility] 12/01/2022 06:03:26 Influenza, split virus, quadrivalent, PF 8 completed Not Available [facility] 12/01/2022 06:03:26 Influenza, split virus, quadrivalent, PF 2 completed Not Available [facility] 12/01/2022 06:03:26 Influenza, split virus, trivalent, PF 0 completed Not Available [facility] 12/01/2022 06:03:26 Influenza, split virus, quadrivalent, PF 3 completed David García MD [address] [place] [address],[address], [place], [address], [facility] - [place] & [place] 12/06/2022 14:19:35 zoster recombinant 3 completed Not Available [facility] 12/01/2022 06:03:26 Tdap 3 completed Not Available [facility] 12/01/2022 06:03:26 Influenza, split virus, trivalent, PF 4 completed David García MD [address] [place] [address],[address], [place], [address], [facility] & [place] 2024 11:29:57 Past Encounters Encounter ID Performer Location Encounter Start Date Encounter Closed Date Diagnosis/Indication Diagnosis SNOMED-CT Code Diagnosis ICD10 Code Diagnosis Note [id number] [facility] [address] [place] [address] 12/25/2021 11:09:45 12/25/2021 12:19:49 Administration of influenza vaccine [id number] Z23 [id number] MD JOSELIN Valentin [facility] [address] [place] [address] 03/16/2022 09:04:47 03/16/2022 09:47:42 Essential hypertension 11033380 I10 Patient returns today for follow-up of a chronic diagnosis of hypertensi on. Outpatient surveillan ce as demonstrat ed good control, without any issues or complaints of side effect. Surveillan ce laboratory studies have been ordered to assess for the target of treatment as well as any potential end-organ toxicity. Generalize d osteoarthritis 031581695 M15.9 This represents a chronic process that has been medically stable. Currently remains asymptomat ic, with no change in status, and no change in progressio n diagnostic ally or from a treatment standpoint . 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 Currently there appears to be no toxicity or side effect and good response to treatment. For these reasons we will continue medication s as ordered. Surveillan ce laboratory studies have been ordered to assess for the target of treatment as well as any potential end-organ toxicity. Depression screening 171 619237 Z13.31 Vitamin D deficiency 347 69086 E55.9 Surveillan ce laboratory studies have been ordered to assess for the target of treatment as well as any potential end-organ toxicity. Polyneuropathy 15048031 G62.9 The patient is followed and monitored for chronic pain management without the use of chronic scheduled medication s. [id number] MD JOSELIN Valentin [facility] [address] [place] [address] 09/06/2022 08:53:34 09/06/2022 10:26:50 Adult health examination 705583752 Z00.00 Appropriat e age related, gender related, and health risk related parameters were addressed today recommenda tions were made for appropriat e wellness studies as indicated. Essential hypertension 32927443 I10 Patient returns today for follow-up of a chronic diagnosis of hypertensi on. Outpatient surveillan ce as demonstrat ed good control, without any issues or complaints of side effect. Hyperuricemia 12274850 E 79.0 This represents a chronic process that has been medically stable. Currently remains asymptomat ic, with no change in status, and no change in progressio n diagnostic ally or from a treatment standpoint . Surveillan ce laboratory studies have been ordered to assess for the target of treatment as well as any potential end-organ toxicity. Vitamin D deficiency 347 15069 E55.9 Surveillan ce laboratory studies have been ordered to assess for the target of treatment as well as any potential end-organ toxicity. Long-term current use of drug therapy 906588736 Z79.899 Surveillan ce laboratory studies have been ordered to assess for the target of treatment as well as any potential end-organ toxicity. Screening for malignant neoplasm of breast 223041798 Z12.39 Appropriat e age related, gender related, and health risk related parameters were addressed today recommenda tions were made for appropriat e wellness studies as indicated. Postmenopausal state 764 11137 Z78.0 Appropriat e age related, gender related, and health risk related parameters were addressed today recommenda tions were made for appropriat e wellness studies as indicated. Screening for malignant neoplasm of colon 110289373 Z12.11 last screening was 5 years ago and at that time polyps were discovered Generalize d osteoarthritis 537531781 M15.9 This represents a chronic process that has been medically stable. Currently remains asymptomat ic, with no change in status, and no change in progressio n diagnostic ally or from a treatment standpoint . 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 Currently there appears to be no toxicity or side effect and good response to treatment. For these reasons we will continue medication s as ordered. Surveillan ce laboratory studies have been ordered to assess for the target of treatment as well as any potential end-organ toxicity. Polyneuropathy 13634732 G62.9 The patient is followed and monitored for chronic pain management without the use of chronic scheduled medication s. Depression screening 171 402192 Z13.31 Appropriat e age related, gender related, and health risk related parameters were addressed today recommenda tions were made for appropriat e wellness studies as indicated. Advance care planning 71 8347510 Z71.89 advance care planning was discussed. She has a living will and wishes are clearly stated regarding potential terminal care. [id number] MD JOSELIN Valentin [facility] [address] [place] [address] 11/11/2022 14:31:26 11/11/2022 15:17:30 Pain of left knee joint [id number] 67902 M25.562 After informed consent was given and an explanatio n of procedure to be performed the patient was prepped and draped in standard fashion. Appropriat e anesthesia was used locally. Education was provided for signs and symptoms of concern any potential redness swelling in the operative site would necessitat e calling office to discuss to see if any potential changes need to be made therapeuti jorge luis. Generalize d osteoarthritis 573843133 M15.9 This appears to be in acute exacerbati on of a chronic process for which treatment has been prescribed . Appropriat e Education in regards to signs and symptoms of deteriorat ion were discussed with the patient. As well expectatio ns for progress in treatment and improvemen t were also discussed. The patient was notified for any concerning signs or symptoms that would require urgent re-evaluat ion. Tachycardia 7494375 R00. 0 significan t tachycardi a was noted on our initial triage. EKG was performed shows it to be sinus tachycardi a [id number] David okeefe MD [facility] [address] [place] [address] 11/17/2022 09:42:32 11/17/2022 11:39:01 Fever 772863759 R50.9 today's visit she is having some dyspnea on exertion in addition to the fact that she was somewhat tachycardi c and febrile. Urinalysis was ordered which appears to suggest purulence Acute urin khoi tract infection 704106366 N39.0 This appears to be in acute process for which treatment has been prescribed . Appropriat e Education in regards to signs and symptoms of deteriorat ion were discussed with the patient. As well expectatio ns for progress in treatment and improvemen t were also discussed. The patient was notified for any concerning signs or symptoms that would require urgent re-evaluat ion. Dyspnea on exertion 6084 5006 R06.09 this is been a progressiv e symptom gone on now for the last several months. She does appear to be tachycardi c and we notice this on her last visit but EKG is suggestive of a sinus tachycardi a. I am going to go on get her scheduled for an echocardio gram, prior to making a decision for either further workup or therapeuti [id number] David okeefe MD [facility] [address] [place] [address] 12/06/2022 12:15:35 12/06/2022 14:59:14 Post-acute COVID-19 [id number] U09.9 overall from this employee Keila is doing well we have the dilemma that she was discharged on Eliquis without a clear indication for treatment. She reportedly has a full hypercoagu lability workup performed while inpatient that was negative. She has a follow-up CT scan in 4-6 weeks. She also has a set up Hematology appointmen t the beginning of February. I think the most prudent thing for us to reach out to see if we can speak with someone it appears to be no good reason to have to continue her risk on Eliquis but we may not have the picture based on what workup was done. 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 Currently there appears to be no toxicity or side effect and good response to treatment. For these reasons we will continue medication s as ordered. Surveillan ce laboratory studies have been ordered to assess for the target of treatment as well as any potential end-organ toxicity. Generalize d osteoarthritis 385881579 M15.9 Tigist is having significan t pain in her right knee today I am a bit hesitant with her medication s and stuff for me to go on and intervene with an injection to the. Influenza vaccine needed [id number] 106 Z23 [id number] MD JOSELIN Valentin [facility] [address] [place] [address] 12/15/2022 08:44:29 12/15/2022 10:24:59 Contusion of right foot [id number] 7319812 S90.31XA examinatio n is not clear but it certainly does not appear to be a threatenin g etiology. This could be a simple as just a broken vein of the foot. She is got some minor tenderness over the 4th metatarsal I can not exclude a potential nondisplac ed stress fracture ultimately this is going to be treated with just a supportive shoe and time.Issue s relative to today's discussion and diagnosis were addressed. All questions were attempted to be addressed and reconciled . Any particular necessary informatio n was dispensed [id number] MD JOSELIN Valentin [facility] [address] [place] [address] 03/15/2023 10:10:54 03/15/2023 11:17:09 Hyperuricemia without signs of inflammatory arthritis and tophaceous disease 079089407 E79.0 This represents a chronic process that has been stable on medication s for extended period of time. Currently there appears to be no toxicity or side effect and good response to treatment. For these reasons we will continue medication s as ordered. Surveillan ce laboratory studies have been ordered to assess for the target of treatment as well as any potential end-organ toxicity. Polyneuropathy 29951504 G62.9 The patient is followed and monitored for chronic pain management without the use of chronic scheduled medication s. Inappropri ate sinus tachycardia 075708431 I47.11 This represents a chronic process that has been medically stable. Currently remains asymptomat ic, with no change in status, and no change in progressio n diagnostic ally or from a treatment standpoint . Essential hypertension 72857003 I10 Patient returns today for follow-up of a chronic diagnosis of hypertensi on. Outpatient surveillan ce as demonstrat ed good control, without any issues or complaints of side effect. Vitamin D deficiency 347 02083 E55.9 Surveillan ce laboratory studies have been ordered to assess for the target of treatment as well as any potential end-organ toxicity. Long-term drug therapy 330395374 Z79.899 Surveillan ce laboratory studies have been ordered to assess for the target of treatment as well as any potential end-organ toxicity. Generalize d osteoarthritis 618191975 M15.9 This represents a chronic process that has been medically stable. Currently remains asymptomat ic, with no change in status, and no change in progressio n diagnostic ally or from a treatment standpoint . Osteoporosis 97496227 M8 1.0 This represents a chronic process that has been stable on medication s for extended period of time. Currently there appears to be no toxicity or side effect and good response to treatment. For these reasons we will continue medication s as ordered. Venous ins ufficiency of leg 577087790 I87.2 This represents a chronic process that has been medically stable. Currently remains asymptomat ic, with no change in status, and no change in progressio n diagnostic ally or from a treatment standpoint . Chronic lo ng term disease management required: complex needs 210990410 Z76.89 Today's visit is part of long-term chronic disease management as well as chronic wellness management . Ongoing efforts to consolidat e and optimize care is the goal at each visit. [id number] MD JOSELIN Valentin [facility] [address] [place] [address] 04/21/2023 10:24:03 04/21/2023 11:43:12 Closed fracture of nasal bones 45562281 S02.2XXD Issues relative to today's discussion and diagnosis were addressed. All questions were attempted to be addressed and reconciled . Any particular necessary informatio n was dispensed Polyneuropathy 13870223 G62.9 The patient is followed and monitored for chronic pain management without the use of chronic scheduled medication s. Generalize d osteoarthritis 176812722 M15.9 This represents a chronic process that has been medically stable. Currently remains asymptomat ic, with no change in status, and no change in progressio n diagnostic ally or from a treatment standpoint . Osteoporosis 82949587 M8 1.0 This represents a chronic process that has been stable on medication s for extended period of time. Currently there appears to be no toxicity or side effect and good response to treatment. For these reasons we will continue medication s as ordered. Venous ins ufficiency of leg 777581298 I87.2 This represents a chronic process that has been medically stable. Currently remains asymptomat ic, with no change in status, and no change in progressio n diagnostic ally or from a treatment standpoint . Essential hypertension 98097999 I10 Patient returns today for follow-up of a chronic diagnosis of hypertensi on. Outpatient surveillan ce as demonstrat ed good control, without any issues or complaints of side effect. Chronic lo ng term disease management required: complex needs 585089534 Z76.89 Today's visit is part of long-term chronic disease management as well as chronic wellness management . Ongoing efforts to consolidat e and optimize care is the goal at each visit. [id number] MD JOSELIN Valentin [facility] [address] [place] [address] 10/17/2023 11:06:03 10/17/2023 12:11:52 Adult health examination 513156186 Z00.00 Appropriat e age related, gender related, and health risk related parameters were addressed today recommenda tions were made for appropriat e wellness studies as indicated. Advance care planning 71 7338117 Z71.89 advance care planning was discussed. She has a living will and wishes are clearly stated regarding potential terminal care. Standard ed adult depression screening tool completed [id number] 67066 Z13.31 Routine screening for depression is found to be negative. No interventi ons are required Essential hypertension 66800731 I10 Patient returns today for follow-up of a chronic diagnosis of hypertensi on. Outpatient surveillan ce as demonstrat ed good control, without any issues or complaints of side effect. 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 Currently there appears to be no toxicity or side effect and good response to treatment. For these reasons we will continue medication s as ordered. Surveillan ce laboratory studies have been ordered to assess for the target of treatment as well as any potential end-organ toxicity. Polyneuropathy 96834375 G62.9 The patient is followed and monitored for chronic pain management without the use of chronic scheduled medication s. Osteoporosis 24773445 M8 1.0 This represents a chronic process that has been stable on medication s for extended period of time. Currently there appears to be no toxicity or side effect and good response to treatment. For these reasons we will continue medication s as ordered. Generalize d osteoarthritis 403959663 M15.4 This represents a chronic process that has been medically stable. Currently remains asymptomat ic, with no change in status, and no change in progressio n diagnostic ally or from a treatment standpoint . Venous ins ufficiency of leg 816128774 I87.2 This represents a chronic process that has been medically stable. Currently remains asymptomat ic, with no change in status, and no change in progressio n diagnostic ally or from a treatment standpoint . Vitamin D deficiency 347 64033 E55.9 Surveillan ce laboratory studies have been ordered to assess for the target of treatment as well as any potential end-organ toxicity. Inappropri ate sinus tachycardia 182112911 I47.11 This represents a chronic process that has been medically stable. Currently remains asymptomat ic, with no change in status, and no change in progressio n diagnostic ally or from a treatment standpoint . Screening mammography of bilateral breasts 4596536391 29459 Z12.31 Appropriat e age related, gender related, and health risk related parameters were addressed today recommenda tions were made for appropriat e wellness studies as indicated. Postmenopausal state 764 85212 Z78.0 Appropriat e age related, gender related, and health risk related parameters were addressed today recommenda tions were made for appropriat e wellness studies as indicated. [id number] MD JOSELIN Valentin [facility] [address] [place] [address] 10/03/2023 15:26:00 10/03/2023 17:11:14 Pain of right knee joint 2051015025 96619 M25.561 After informed consent was given and an explanatio n of procedure to be performed the patient was prepped and draped in standard fashion. Appropriat e anesthesia was used locally. Education was provided for signs and symptoms of concern any potential redness swelling in the operative site would necessitat e calling office to discuss to see if any potential changes need to be made therapeuti jorge luis. Generalize d osteoarthritis 012170303 M15.4 This represents a chronic process that has been medically stable. Currently remains asymptomat ic, with no change in status, and no change in progressio n diagnostic ally or from a treatment standpoint . Essential hypertension 46506119 I10 Patient returns today for follow-up of a chronic diagnosis of hypertensi on. Outpatient surveillan ce as demonstrat ed good control, without any issues or complaints of side effect. Polyneuropathy 40251585 G62.9 The patient is followed and monitored for chronic pain management without the use of chronic scheduled medication s. [facility] ed adult depression screening tool completed [id number] 63564 Z13.31 Routine screening for depression is found to be negative. No interventi ons are required [id number] MD JOSELIN Valentin [facility] [address] [place] [address] 2024 08:20:11 2024 12:38:59 Administration of influenza vaccine 00082757 Z23 [id number] MD JOSELIN Valentin [facility] [address] [place] [address] 02/14/2024 09:55:27 02/14/2024 11:21:23 Fracture of multiple ribs [id number] S22.42XD Issues relative to today's discussion and diagnosis were addressed. All questions were attempted to be addressed and reconciled . Any particular necessary informatio n was dispensed Essential hypertension [id number] I10 Patient returns today for follow-up of a chronic diagnosis of hypertensi on. Outpatient surveillan ce as demonstrat ed good control, without any issues or complaints of side effect. Osteoporosis 08150462 M8 1.0 This represents a chronic process that has been stable on medication s for extended period of time. Currently there appears to be no toxicity or side effect and good response to treatment. For these reasons we will continue medication s as ordered. Polyneuropathy 52879787 G62.9 The patient is followed and monitored for chronic pain management without the use of chronic scheduled medication s. [id number] MD [facility] [address] [place] [address] 04/09/2024 09:56:04 04/09/2024 11:49:08 Essential hypertension [id number] I10 Patient returns today for follow-up of a chronic diagnosis of hypertensi on. [facility], without any issues or complaints of side effect. it is of a concern today that she is having significan t orthostati c dizziness. She most recently has taken a fall to her she had multiple rib fractures. 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 Currently there appears to be no toxicity or side effect and good response to treatment. For these reasons we will continue medication s as ordered. Surveillan ce laboratory studies have been ordered to assess for the target of treatment as well as any potential end-organ toxicity. Vitamin D deficiency 347 87939 E55.9 Surveillan ce laboratory studies have been ordered to assess for the target of treatment as well as any potential end-organ toxicity. Long-term current use of drug therapy [id number] Z79.899 Surveillan ce laboratory studies have been ordered to assess for the target of treatment as well as any potential end-organ toxicity. Bacterial vaginosis [id number] [id number] N76.0 This appears to be in acute process for which treatment has been prescribed . Appropriat e Education in regards to signs and symptoms of deteriorat ion were discussed with the patient. As well expectatio ns for progress in treatment and improvemen t were also discussed. The patient was notified for any concerning signs or symptoms that would require urgent re-evaluat ion. Pain in fi nger of right hand [id number] 76035 M79.644 this has an odd presentati on in the sense that she has a pretty obviously arthritic hand but her right index finger is stuck in extension it has been that way for a month or so. I have the sense that I think I can feel in extensor nodular flexor nodule over the PIP but I am going to make an orthopedic s referral to see if they have some insight diagnosis and potentiall y can give her some flexibilit y Standardiz ed adult depression screening tool completed [id number] 97530 Z13.31 Routine screening for depression is found to be negative. No interventi ons are required Polyneuropathy 77313597 G62.9 The patient is followed and monitored for chronic pain management without the use of chronic scheduled medication s. Inappropri ate sinus tachycardia 262693612 I47.11 This represents a chronic process that has been medically stable. Currently remains asymptomat ic, with no change in status, and no change in progressio n diagnostic ally or from a treatment standpoint . [id number] MD JOSEL[facility] [address] [place] [address] 04/16/2024 08:24:41 04/16/2024 09:05:03 Essential hypertension 10052919 I10 Patient returns today for follow-up of a chronic diagnosis of hypertensi on, After recent discontinu ation of hydrochlor othiazide. Her blood pressure is very reasonable at 146/80. We would probably prefer if tolerable for her systolic to be a bit lower but relative to her risk for falls this has a very tolerable and acceptable blood pressure. And this is no doubt exacerbate d by her peripheral neuropathy and accentuate s her symptoms. Polyneuropathy 62158047 G62.9 The patient is followed and monitored for chronic pain management without the use of chronic scheduled medication s. As in the above discussion . Standardiz ed adult depression screening tool completed [id number] 91312 Z13.31 Routine screening for depression is found to be negative. No interventi ons are required Health Concerns Section Related Observation LastModified by Organization Detai ls LastModified Time None Recorded Concern Status LastModified by Organization Details LastModified Time None Recorded Advance Directives Directive Y: Payers Insurance Date Sequence Insurance Name Policy Number Policy Pearce Covered Member ID Pearce Member ID Guarantor Name 01/10/2019 1 *SELF PAY* Kely Meeks 2024 [employer] (MEDICARE REPLACEMENT/ ADVANTAGE - PPO) Tigist Meeks [id number] Tigist Meeks 2024 1 [employer] (PPO) Tigist Meeks wine [id number] Tigist Meeks e 2024 [employer] (MEDICARE REPLACEMENT/ ADVANTAGE - PPO) Tigist Meeks wine [id number] Tigist Meeks 05/28/2024 1 [employer] (MEDICARE REPLACEMENT/ ADVANTAGE - PPO) Tigist Meeks [id number] Tigist Meeks Notes Date Note Type Note Provider Name and Address Organization Details Recorded Time 4 text/html Hypertension F/UReported bypatient.Medications:ta jerome medications as directed; no side effects from medication Lifestyle:limits sodium intake Associated Symptoms:no dizziness; no lightheadedness; no chest pain; no shortness of breath; no calf pain with exertionNotes:No coughJoint & Soft Tissue PainReported bypatient.Location:[facility] Quality:aching Timing:frequent Severity:unchanged Context:long Standing degenerative joint disease Aggravating Factors:twisting;bending /squatting Associated Symptoms:weakness;poppin g[facility] Annual Wellness VisitReported bypatient.Diet and Nutrition:healthy diet Fracture Risk:no history of fractures; no recent explained fracture; no sudden unexplained fractures; no previous musculoskeletal injuries Physical Activity:good physical condition;does not exercise on a regular basis;decreased physical activity Depression Risk:never feels sad, empty, or tearful; no loss of interest in activities; no significant changes in weight; no sleep disturbances or insomnia; no agitation; no loss of energy; no feelings of worthlessness or guilt; no thoughts of suicide; no history of mood disorders;history of depression; On grief following the of her Orientation:no disorientation to time; no disorientation to date; no disorientation to place Concentration and Memory:no decreased concentrating ability; no memory lapses or loss; does not forget words Speech/Motor difficulties:no speech difficulties; no difficulty expressing formulated concepts; no difficulty with fine manipulative tasks; no difficulty writing/copying; no slowed reaction time; does not knock things over when trying to pick them up Hearing:no loss of hearing Vision:no vision problems Activities of Daily Living:able to bathe with limited or no assistance; able to contol urination and bowels; able to dress with limited or no assistance; able to feed self with limited or no assistance; able to get out of chair or bed with limited or no assistance; able to groom with limited or no assistance; able to toilet with limited or no assistance Instrumental Activities of Daily Living:able to do house work with limited or no assistance; able to grocery shop with limited or no assistance; able to manage medications with limited or no assistance; able to manage money with limited or no assistance; able to prepare meals with limited or no assistance; able to use the phone with limited or no assistance Falls Risk Assessment:no frequent falls while walking; no fall in the past year; no fall since last visit; no dizziness/vertigo Home Safety:no unsafe ken hazzards; no unsafe stairs; no unsafe gas appliances; wears protective head gear for biking/high velocity; use of seatbelts; no vision or hearing loss while driving; no fire arms; has hand bars in the bathroom/shower; good lighting in the home Additional reasons for visit includes Co management of any other associated comorbidities related to chronic disease management, as will be outlined in the assessment and plan. David García MD [address] [place] [address],[address], [place], [address], [facility] 10/17/2023 12:16:52 4 text/html today's follow-up is in return after 3 rib fractures after she took an innocent fall while walking outside. She was significantly painful but she comes in today she is back to pretty much her normal function etc. she says if she sneezes or coughs she still will get moderate pain is right at 4 weeks out from the initial injury. David García MD [address] [place] [address],[address], [place], [address], [facility] [place] 02/14/2024 12:04:52 5 text/html Hypertension F/UReported bypatient.Medications:jacqui cano medications as directed; no side effects from medication Lifestyle:limits sodium intake Associated Symptoms:no dizziness; no lightheadedness; no chest pain; no shortness of breath; no calf pain with exertion Notes:No coughJoint & Soft Tissue PainReported bypatient.Location:[facility] Quality:aching Timing:frequent Severity:unchanged Context:long Standing degenerative joint disease Aggravating Factors:twisting;bending /squatting Associated Symptoms:weakness;poppin g/clicking Additional reasons for visit includes Co management of any other associated comorbidities related to chronic disease management, as will be outlined in the assessment and plan. David García MD [address] [place] [address],[address], [place], [address], [facility] [place] 04/09/2024 13:32:33 5 text/html today's visit is a 2 week follow-up after placing hydrochlorothiazide on hold secondary to significant orthostatic symptoms in increased fall risk. She returns today with reasonable blood pressure monitoring in addition to significant improvement with her steadiness. David García MD [address], [place], [address], [place] [facility] [place] 04/16/2024 09:35:31 OBGyn Episode No OBEpisode recorded.
--- OUTSIDE RECORDS SUMMARY | 2024-09-07 07:14 | XMS_ITS | Clinical Summary ---
Author Organization [facility] Address [address] [place] [address] Care Team Providers Care Insurance Healthcare Consultant Name Role Phone Garry García MD Primary Care Provider [phone]- [phone] Allergies Active Allergy Reactions Criticality Noted Date Comments Gabapentin Hives,Rash,Unknown - Patient states they do not know rxn details Medium 02/07/2018 Pregabalin Rash,Unknown - Patie nt states they do not know rxn details Low 02/07/2018 Ropinirole Hives Medium 11/26/2022 Medications allopurinol (Zyloprim) 300 MG tablet Take 1 tablet (300 mg) by mouth 1 (one) time each day. Active amitriptyline (Elavil) 100 MG tablet Take 1 tablet (100 mg) by mouth every night. Active triamterene-hydroc hlorothiazide (Maxzide-25) 37.5-25 MG tablet Take 1 tablet by mouth 1 (one) time each day. Active cholecalciferol (Vitamin D-3) 25 MCG (1000 UT) tablet Take 1 tablet (1,000 Units) by mouth 1 (one) time each day. Active colchicine 0.6 MG tablet Take 1 tablet (0.6 mg) by mouth 2 (two) times a day. 01/30/20 Active aspirin 81 MG EC tablet Take 1 tablet (81 mg) by mouth 1 (one) time each day. Active methylcellulose oral powder Take 1 packet by mouth 1 (one) time each day. Active lidocaine (Lidoderm) 5 % patch Apply 2 patches topically 1 (one) time each day at the same time over 12 hours. Remove & discard patch within 12 hours or as directed by MD. 15 patch 01/10/20 Active ondansetron ODT (Zofran-ODT) 4 MG disintegrating tablet Take 1 tablet (4 mg) by mouth every 6 (six) hours if needed for nausea or vomiting. 20 tablet 01/10/20 Active naloxone (Narcan) 4 mg/0.1 mL nasal spray 1. Give 1 spray in nostril for no/slow breathing or cannot wake after opioid use 2. Call 911 3. Repeat in other nostril if symptoms continue 1 each 01/10/20 Active Additional Information Patient not taking.Reported on 01/27/2024 metoprolol succinate XL (Toprol-XL) 25 MG 24 hr tablet Take 1 tablet (25 mg) by mouth 1 (one) time each day. Do not crush or chew. 30 tablet 01/11/20 Active albuterol 108 (90 Base) MCG/ACT inhaler Inhale 2 puffs 4 (four) times a day if needed for wheezing. 1 each 2 01/27/20 Active methocarbamol (Robaxin) 500 MG tablet Take 1 tablet (500 mg) by mouth every 8 (eight) hours for 15 days. 45 tablet 01/27/20 Active Active Problems Problem Noted Date Diagnosed Date Pleural effusion 01/10/2024 Overview (01/10/2024): -Trace as seen on CXR 01/09/24 -Continue pulm. hygiene Acute atelectasis 01/10/2024 Overview (01/10/2024): - As seen on CXR 01/09/24, continue pulm. hygiene. Fall from standing 01/06/2024 Overview (01/06/2024): Admitted SGT Tertiary exam 01/06 Closed fracture of multiple ribs of left side Overview (01/09/2024): L rib fxs 3-11 - MMPC, pulls 1500 on IS Degenerative joint disease of cervical spine Overview (01/06/2024): Degenerative changes of the cervical spine. 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 Overview (01/09/2024): Bilateral Restarted home med Rheumatoid arthritis 01/06/2024 Overview (01/06/2024): Resume home medications when appropriate History of prolapse of bladder 01/06/2024 Overview (01/06/2024): Noted per daughter Recurrent deep vein thrombosis (DVT) 11/27/2022 Overview (01/06/2024): No use of home anticoagulation noted Takes ASA Polyneuropathy 03/16/2022 Overview (01/06/2024): Bilateral feet Resume home medications when appropriate Pulmonary embolism 08/21/2019 11/27/2022 Overview (11/27/2022): Family denies h/o PE Osteoarthritis 04/25/2019 11/27/2022 Overview (01/06/2024): Complicated mobilization and recovery Restless legs 04/25/2019 11/27/2022 Overview (01/06/2024): Resume home medications when appropriate Fibromyalgia 05/17/2017 11/27/2022 Overview (01/09/2024): Restarted home meds Hypertensive disorder 05/17/2017 11/27/2022 Overview (01/09/2024): - Metoprolol restarted 01/08/24 Osteoporosis 05/17/2017 11/27/2022 Overview (01/06/2024): Complicated mobilization and recovery Resolved Problems Problem Noted Date Diagnosed Date Resolved Date Hyperglycemia 01/06/2024 01/09/2024 Overview (01/06/2024): Likely reactive 2/2 trauma Monitor Acute respiratory failure with hypoxia 11/27/2022 01/06/2024 2019 novel coronavirus disease (COVID-19) 11/27/2022 11/18/2022 01/06/2024 Overview (11/27/2022): -initially tested positive at home on 11/18/22 Calcium pyrophosphate deposi tion disease (CPPD) 11/27/2022 01/06/2024 Generalized weakness 11/27/2022 Pneumonia of left lower lobe due to infectious organism 11/27/2022 01/06/2024 Overview (11/27/2022): Repeat CT Chest in 3 months to r/o carcinoma Tachycardia 11/27/2022 01/06/2024 Female stress incontinence 04/25/2019 11/27/2022 1 Polyneuropathy 04/25/2019 11/27/2022 11/27/2022 Female cystocele 06/07/2017 11/27/2022 01/06/2024 Atrophy of vagina 06/07/2017 11/27/2022 01/06/2024 Neuropathy 05/17/2017 11/27/2022 01/06/2024 Immunizations Immunization Administration Dates Next Due Influenza, injectable, quadr ivalent, preservative free 12/25/2021,12/12/2020,12/05/2019,2018,12/20/2017 Influenza, seasonal, injectable 11/19/2016 Influenza, seasonal, injecta ble, preservative free 01/06/2010 Moderna COVID-19 Vaccine (Re d Cap) 12+ years 01/25/2021,05/23/2020,04/25/2020 Tdap 09/06/2022 Zoster, Recombinant 09/06/2022 Family History Medical History Relation Name Comments Cancer Father Cancer Mother suspected lung history of blood clots Mother Relation Name Status Comments Daughter Leigh Ann Rivera Alive Father Mother Social History Tobacco Use Types Packs/Day Years Used Date Smoking Tobacco: Never Smokeless Tobacco: Never Tobacco Cessation:Counseling Given: Not Answered Alcohol Use Standard Drinks/Week Comments Never 0 (1 standard drink = 0.6 oz pur e alcohol) Humiliation, Afraid, Rape, and Kick questionnair e Answer Date Recorded Within the last year, have y ou been afraid of your partner or ex-partner? No 01/06/2024 Within the last year, have y ou been humiliated or emotionally abused in other ways by your partner or ex-partner? No Within the last year, have y ou been kicked, hit, slapped, or otherwise physically hurt by your partner or ex-partner? No 01/06/2024 Within the last year, have y ou been raped or forced to have any kind of sexual activity by your partner or ex-partner? No 01/06/2024 Hunger Vital Sign Answer Date Recorded Within the past 12 months, y ou worried that your food would run out before you got the money to buy more. Never true 01/06/20 24 Within the past 12 months, t he food you bought just didn't last and you didn't have money to get more. Never true 01/06/2024 PRAPARE - Transportation Answer Date Re corded In the past 12 months, has l ack of transportation kept you from medical appointments or from getting medications? No 12/13 In the past 12 months, has l ack of transportation kept you from meetings, work, or from getting things needed for daily living? No 01/06/2024 Housing Stability Vital Sign Answer Elieser e Recorded In the last 12 months, was t here a time when you were not able to pay the mortgage or rent on time? No 01/06/2024 In the last 12 months, how many places have you lived? 1 01/06/2024 In the last 12 months, was t here a time when you did not have a steady place to sleep or slept in a detention (including now)? No 01/06/2024 CAGE ASSESSMENT Answer Date Recorded Cage unable to access Not on file 11/27/2022 Cage max number of drinks Not on file 2022 Cage Beverages a week Not on file 11/27/2022 Have you ever felt you should CUT down on your d rinking? 0 11/27/2022 Have you been ANNOYED by people criticizing your drinking? 0 11/27/2022 Have you felt GUILTY about your drinking? 0 11/27/2022 Have you had a drink first t cate in the morning (EYE-SUPERVISOR MATTRESS [employer] BOXSPRINGS) to steady your nerves or to get rid of a hangover? 0 11/27/2022 CAGE Questionnaire Score 0 023 Utilities Answer Date Recorded In the past 12 months has th e [employer], gas, oil, or water [employer] threatened to shut off services in your home? No 01/06/2024 Comments No Sex and Gender Information Value Date Recorded Sex Assigned at Not on file Legal Sex Female 7:06 PM EDT Gender Identity Not on file Sexual Orientation Not on file Last Filed Vital Signs Vital Sign Reading Time Taken Comments Blood Pressure 130/80 01/27/2024 10:00 AM EST Pulse 79 01/27/2024 10:00 AM EST Temperature 36.4 C (97.5 F) 01/27/2024 10:00 AM EST Respiratory Rate 16 01/27/2024 10:0 0 AM EST Oxygen Saturation 97% 01/27/2024 10: 00 AM EST Inhaled Oxygen Concentration - - Weight 68.4 kg (150 lb 12.8 oz) 024 10:00 AM EST Height 157.2 cm (5' 1.89 ) 01/27/2024 1 0:00 AM EST Body Mass Index 27.68 01/27/2024 10:00 AM EST Plan of Treatment Health Maintenance Due Date Last Done Comments [facility]-Bone Density Scan 1945 [facility]-Depression Screening 1945 [facility]-Medicare Annual Wellness (AWV) 1945 [facility]-Infant/Child/Adol SDOH Screenings 1945 [facility]-Pneumococcal Vaccine: 50+ Years (1 of 2 - PCV) 1962 [facility]-RSV Vaccine: 60+ Years or (1 - 1-dose 75+ series) 2018 [id number] Vaccine ( season) 2023 01/25/2021, 05/23/2020, 05/12/2020, Additional history exists [facility]- SDOH Screenings 07/06/2024 [facility]-Adult SDOH Screenings 07/06/2024 01/06/2024 [facility]-DTaP,Tdap,and Td Vaccines (2 - Td or Tdap) 09/06/2032 09/06/2022 [facility]-Zoster Vaccines Completed 02/25/2023, [facility]-Influenza Vaccine Completed 2024 , 12/06/2022, 12/25/2021, Additional history exists [facility]-Obesity Intervention Completed 01/27/2024, 12/13 HPV Vaccines Aged Out No longer eligi ble based on patient's age to complete this topic [facility]-HIB Vaccines Aged Out No longer e ligible based on patient's age to complete this topic [facility]-Hepatitis A Vaccines Aged Out No longer eligible based on patient's age to complete this topic [facility]-IPV Vaccines Aged Out No longer e ligible based on patient's age to complete this topic [facility]-Rotavirus Vaccines Aged Out No lo nger eligible based on patient's age to complete this topic Insurance Advance Directives Documents on File Type Date Recorded Patient Servicing Rep Expl anation Power of Color Matcher 12/01/2022 11:10 AM Advance Directives and Livin g Will 12/01/2022 11:10 AM Advance Directives and Livin g Will 11/30/2022 11:58 AM Power of Color Matcher 11/30/2022 11:56 AM * Full Code (Latest Code Status on File) Date Activated Date Inactivated Comments 01/06/2024 5:35 AM 01/10/2024 2:42 PM Question Answer Comments Patient has decision-making capacity? Yes * Full Code Date Activated Date Inactivated Comments 11/27/2022 2:42 AM 11/30/2022 3:22 PM Question Answer Comments Patient has decision-making capacity? Yes Care Teams Insurance Healthcare Consultant Relationship Specialty Start Date End Date Garry García MD [address] [place] [address] PCP - General 07/25/20
--- OUTSIDE RECORDS SUMMARY | 2024-09-07 07:14 | XMS_ITS | Encounter Summary ---
Author Organization Healthcare Address [address] [place] [address] Care Team Providers Care Pathology Lab Technician Name Role Phone Garry García MD Primary Care Provider [phone]- [phone] Reason for Visit * Reason Comments Med Refill Encounter Details Date Type Department Care Team (Late st Contact Info) Description 04/14/2024 Refill [facility] General Surgery [address], [address] [place] [address] Soni Aguilar, UNIFORM CAP OPERATOR [address] [place] [address] Social History Tobacco Use Types Packs/Day Years Used Date Smoking Tobacco: Never Smokeless Tobacco: Never Alcohol Use Standard Drinks/Week Comments Never 0 [...] place to sleep or slept in a intermediate (including now)? No 01/06/2024 CAGE ASSESSMENT Answer [...] drink first t cate in the morning (EYE-CLOTH TRIMMER HAND) to steady your nerves or to get rid of a hangover? 0 11/27/2022 CAGE Questionnaire Score 0 023 Utilities Answer Date Recorded In the past 12 months has th e electric, gas, oil, or water company threatened to shut off services in your home? No 01/06/2024 Comments No Sex and Gender Information Value Date Recorded Sex Assigned at Not on file Legal Sex Female 7:06 PM EDT Gender Identity Not on file Sexual Orientation Not on file documented as of this encounter Miscellaneous Notes * Telephone Encounter - Ary Antunez RN - 04/16/2024 9:21 AM EST Pt no longer under prescriber care. Will need to get from pcp if needed. documented in this encounter Plan of Treatment Not on file documented as of this encounter Visit Diagnoses Not on filedocumented in this encounter Additional Health Concerns Assessment Noted Time A fall risk assessment has been complete d for the patient 01/27/2024 10:00 AM EST A Body Mass Index follow-up plan has been documented for the patient 01/27/2024 10:27 AM EST documented as of this encounter Care Teams Pathology Lab Technician Relationship Specialty Start Date End Date Garry García MD [address] [place] [address] [id number] PCP - General 07/25/20 documented as of this encounter
--- OUTSIDE RECORDS SUMMARY | 2024-09-07 07:14 | XMS_ITS | Data Portability ---
Author Organization [facility] Address [address] [place] [address] Assessment Encounter Date Assessment Date Assessment LastModified by Organization Details LastModified Time 08/21/2019 08/21/2019 74 yo here after failure of anterior repair/SSLF [email or web address] Not available 08/21/2019 11:53:57 06/14/2024 06/14/2024 -Medications were reviewed and any necessary updates and renewals were made, patient instructed to complete as prescribed. -The potential side effects of medications were discussed. -Counseling was done on care goals and ways to prevent future hospitalizatio ns. -Further treatment per orders listed below. [email or web address] Not available 06/14/2024 13:15:36 Plan of Treatment Reminders Order Date Submit Date Provider Last Modified By Organization Details Last Modified Time Details Appointments None recorded. Lab culture, urine 2024 025 [facility], [address], [place], [address], 08:10:15 urinalysis, dipstick 2024 025 [facility], [address] [facility], [place], [address], 08:19:29 hepatitis panel (A+B+C), acute, serum 2024 025 [facility], [address], [place], [address], 5 08:11:26 CBC w/ auto diff 2024 025 [facility], [address], [address], [place], [address], 5 08:11:26 rapid flu (A+B) 2024 025 [facility], [address] [place] [address], [address], 5 17:07:16 rapid strep group A, throat 2024 025 [facility], [address] [place] [address], [address], 5 17:07:17 magnesium, serum or plasma 2024 025 [facility], [address], [place] [address], [place], [address], 5 12:08:03 TSH + free T4, serum 2024 025 [facility], [address], [place] [address], [place], [address], 5 12:08:02 amylase + lipase, serum 2024 025 [facility], [address], [place] [address], [place], [address], 5 12:08:03 CBC w/ auto diff 2024 025 [facility], [address], [place] [address], [place], [address], 5 12:08:02 CMP, serum or plasma 2024 025 [facility], [address], [place] [address], [place], [address], 5 12:08:02 rapid SARS CoV + SARS CoV 2 Ag, QL IA, respiratory specimen 2024 [facility], [address] [place] [address], [address], 5 08:04:33 Referral gastroenter ologist referral - liver labs elevated,po ss liver mass(cyst), 2024 KRYSTAL Weeks MD, [address], [place], [place], [address], 5 15:22:01 cardiologis t referral - 9 am 05/29/242024 025 KRYSTAL Paez MD, [address], [place], [place], [address], 5 11:22:40 Procedures venipunctur e routine (PROC) 2024 025 [facility] Not available 09:45:12 Surgeries None recorded. Imaging XR, chest, 2 view 2024 [facility] (X-Ray), [address], [place], [place], [address], 5 10:52:10 electrocard iogram 2024 025 [facility], [address] [place] [address], [address], 5 17:07:17 Medication Orders benzonatate 100 mg capsule 2024 025 [facility], [address] [place], [address], 5 13:54:26 erythromyci n 5 mg/gram (0.5 %) eye ointment 2024 025 [facility], [address] [place], [address], 17:07:14 sodium chloride 0.9 % intravenous solution 2024 025 [facility], [address] [place], [address], 17:07:14 Normal Saline Flush 0.9 % injection syringe 2024 025 [facility], [address] [place], [address], 08:04:33 Patient TargetsNo targets recorded. Patient Instructions Encounter Date Encounter Id Patient Instructions Last Modified By Organization Details Last Modified Time 08/21/2019 [id number] 3 months post op now with surgical failure. 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 Not having issues with stress IC (TVT still in place). 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) [address] [facility], [place], [address], 05/29/2024 12:08:02 05/29/1905/29/2024 TSH+F REE T4 T4,free(dire ct) 1.61 NG/dL 0.82-1 .77 normal Not Available [facility] ([facility]) [address] [place], [address], 05/29/2024 12:08:02 05/29/19 25 05/29/2024 CBC WITH DIFFE RENTI AL/PL ATELE T WBC 11.5 x10e3 /uL 3.4-10 .8 above high normal Not Available [facility] ([facility]) [address] [place], [address], 05/29/2024 12:08:02 05/29/1905/29/2024 CBC WITH DIFFE RENTI AL/PL ATELE T RBC 4.52 x10e6 /uL 3.77-5 .28 normal Not Available [facility] ([facility]) [address] [place], [address], 05/29/2024 12:08:02 05/29/19 25 05/29/2024 CBC WITH DIFFE RENTI AL/PL ATELE T hemoglobin 13.7 g/dL 11.1-1 5.9 normal Not Available [facility] ([facility]) [address] [place], [address], 05/29/2024 12:08:02 05/29/1905/29/2024 CBC WITH DIFFE RENTI AL/PL ATELE T hematocrit 39.9 % 34.0-4 6.6 normal Not Available [facility] ([facility]) [address] [place], [address], 05/29/2024 12:08:02 05/29/1905/29/2024 CBC WITH DIFFE RENTI AL/PL ATELE T MCV 88 fL 79-97 normal Not Available [facility] ([facility]) [address] [place], [address], 05/29/2024 12:08:02 05/29/19 25 05/29/2024 CBC WITH DIFFE RENTI AL/PL ATELE T MCH 30.3 pg 26.6-3 3.0 normal Not Available [facility] ([facility]) [address] [facility], [place], [address], 05/29/2024 12:08:02 05/29/19 25 05/29/2024 CBC WITH DIFFE RENTI AL/PL ATELE T MCHC 34.3 g/dL 31.5-3 5.7 normal Not Available [facility] ([facility]) [address] [facility], [place], [address], 05/29/2024 12:08:02 05/29/19 25 05/29/2024 CBC WITH DIFFE RENTI AL/PL ATELE T RDW 14.1 % 11.7-1 5.4 Not Available [facility] ([facility]) [address] [facility], [place], [address], 05/29/2024 12:08:02 05/29/19 25 05/29/2024 CBC WITH DIFFE RENTI AL/PL ATELE T platelets 272 x10e3 /uL 150-45 0 normal Not Available [facility] ([facility]) [address] [facility], [place], [address], 05/29/2024 12:08:02 05/29/19 25 05/29/2024 CBC WITH DIFFE RENTI AL/PL ATELE T neutrophils 71 % not estab. normal Not Available [facility] ([facility]) [address] [facility], [place], [address], 05/29/2024 12:08:02 05/29/19 25 05/29/2024 CBC WITH DIFFE RENTI AL/PL ATELE T lymphs 18 % not estab. normal Not Available [facility] ([facility]) [address] [facility], [place], [address], 05/29/2024 12:08:02 05/29/19 25 05/29/2024 CBC WITH DIFFE RENTI AL/PL ATELE T monocytes 8 % not estab. normal Not Available [facility] ([facility]) [address] [facility], [place], [address], 05/29/2024 12:08:02 05/29/19 25 05/29/2024 CBC WITH DIFFE RENTI AL/PL ATELE T eos 1 % not estab. normal Not Available [facility] ([facility]) [address] [facility], [place], [address], 05/29/2024 12:08:02 05/29/19 25 05/29/2024 CBC WITH DIFFE RENTI AL/PL ATELE T basos 1 % not estab. normal Not Available [facility] ([facility]) [address] [facility], [place], [address], 05/29/2024 12:08:02 05/29/19 25 05/29/2024 CBC WITH DIFFE RENTI AL/PL ATELE T immature cells MANAGER LOCATION Not Available [facility] ([facility]) [address] [place], [address], 05/29/2024 12:08:02 05/29/19 25 05/29/2024 CBC WITH DIFFE RENTI AL/PL ATELE T neutrophils (absolute) 8.4 x10e3 /uL 1.4-7. 0 above high normal Not Available [facility] ([facility]) [address] [place], [address], 05/29/2024 12:08:02 05/29/19 25 05/29/2024 CBC WITH DIFFE RENTI AL/PL ATELE T lymphs (absolute) 2.0 x10e3 /uL 0.7-3. 1 normal Not Available [facility] ([facility]) [address] [place], [address], 05/29/2024 12:08:02 05/29/19 25 05/29/2024 CBC WITH DIFFE RENTI AL/PL ATELE T monocytes(ab solute) 0.9 x10e3 /uL 0.1-0. 9 normal Not Available [facility] ([facility]) [address] [facility], [place], [address], 05/29/2024 12:08:02 05/29/19 25 05/29/2024 CBC WITH DIFFE RENTI AL/PL ATELE T eos (absolute) 0.1 x10e3 /uL 0.0-0. 4 normal Not Available [facility] ([facility]) [address] [facility], [place], [address], 05/29/2024 12:08:02 05/29/19 25 05/29/2024 CBC WITH DIFFE RENTI AL/PL ATELE T baso (absolute) 0.1 x10e3 /uL 0.0-0. 2 normal Not Available [facility] ([facility]) [address] [place], [address], 05/29/2024 12:08:02 05/29/19 25 05/29/2024 CBC WITH DIFFE RENTI AL/PL ATELE T immature granulocytes 1 % not estab. Not Available [facility] ([facility]) [address] [facility], [place], [address], 05/29/2024 12:08:02 05/29/19 25 05/29/2024 CBC WITH DIFFE RENTI AL/PL ATELE T immature grans (abs) 0.1 x10e3 /uL 0.0-0. 1 Not Available [facility] ([facility]) [address] [place], [address], 05/29/2024 12:08:02 05/29/19 25 05/29/2024 CBC WITH DIFFE RENTI AL/PL ATELE T NRBC MANAGER LOCATION Not Available [facility] ([facility]) [address] [facility], [place], [address], 05/29/2024 12:08:02 05/29/19 25 05/29/2024 CBC WITH DIFFE RENTI AL/PL DUSTY Bardales hematology comments: MANAGER LOCATION Not Available [facility] ([facility]) [address] [facility], [place], [address], 05/29/2024 12:08:02 05/29/19 25 05/29/2024 COMP. METAB OLIC PANEL (14) glucose 119 mg/dL 70-99 above high normal Not Available [facility] ([facility]) [address] [place], [address], 05/29/2024 12:08:02 05/29/19 25 05/29/2024 COMP. METAB OLIC PANEL (14) BUN 15 mg/dL 8-27 normal Not Available [facility] ([facility]) [address] [facility], [place], [address], 05/29/2024 12:08:02 05/29/19 25 05/29/2024 COMP. METAB OLIC PANEL (14) creatinine 1.00 mg/dL 0.57-1 .00 normal Not Available [facility] ([facility]) [address] [facility], [place], [address], 05/29/2024 12:08:02 05/29/19 25 05/29/2024 COMP. METAB OLIC PANEL (14) eGFR 57 mL/mi n/1.7 3 >59 below low normal Not Available [facility] ([facility]) [address] [facility], [place], [address], 05/29/2024 12:08:02 05/29/19 25 05/29/2024 COMP. METAB OLIC PANEL (14) BUN/creatini ne ratio 15 12-28 normal Not Available [facility] ([facility]) [address] [place], [address], 05/29/2024 12:08:02 05/29/19 25 05/29/2024 COMP. METAB OLIC PANEL (14) sodium 136 mmol/ L 134-14 4 normal Not Available [facility] ([facility]) [address] [place], [address], 05/29/2024 12:08:02 05/29/19 25 05/29/2024 COMP. METAB OLIC PANEL (14) potassium 4.0 mmol/ L 3.5-5. 2 normal Not Available [facility] ([facility]) [address] [place], [address], 05/29/2024 12:08:02 05/29/19 25 05/29/2024 COMP. METAB OLIC PANEL (14) chloride 102 mmol/ L 96-106 normal Not Available [facility] ([facility]) [address] [place], [address], 05/29/2024 12:08:02 05/29/19 25 05/29/2024 COMP. METAB OLIC PANEL (14) carbon dioxide, total 17 mmol/ L 20-29 below low normal Not Available [facility] ([facility] [address] [place], [address], 05/29/2024 12:08:02 05/29/19 25 05/29/2024 COMP. METAB OLIC PANEL (14) calcium 9.2 mg/dL 8.7-10 .3 normal Not Available [facility] ([facility] [address] [place], [address], 05/29/2024 12:08:02 05/29/19 25 05/29/2024 COMP. METAB OLIC PANEL (14) protein, total 7.1 g/dL 6.0-8. 5 normal Not Available [facility] ([facility] [address] [place], [address], 05/29/2024 12:08:02 05/29/19 25 05/29/2024 COMP. METAB OLIC PANEL (14) albumin 4.3 g/dL 3.7-4. 7 normal Not Available [facility] ([facility]) [address] [facility] [place], [address], 05/29/2024 12:08:02 05/29/19 25 05/29/2024 COMP. METAB OLIC PANEL (14) globulin, total 2.8 g/dL 1.5-4. 5 Not Available [facility] ([facility] [address] [place], [address], 05/29/2024 12:08:02 05/29/19 25 05/29/2024 COMP. METAB OLIC PANEL (14) bilirubin, total 1.0 mg/dL 0.0-1. 2 normal Not Available [facility] ([facility]) [address] [facility] [place], [address], 05/29/2024 12:08:02 05/29/19 25 05/29/2024 COMP. METAB OLIC PANEL (14) alkaline phosphatase 160 IU/L 44-121 above high normal Not Available [facility] ([facility]) [address] [facility], [address], 05/29/2024 12:08:02 05/29/19 25 05/29/2024 COMP. METAB OLIC PANEL (14) AST (SGOT) 396 IU/L 0-40 above high normal Not Available [facility] ([facility]) [address] [place], [address], 05/29/2024 12:08:02 05/29/19 25 05/29/2024 COMP. METAB OLIC PANEL (14) ALT (SGPT) 354 IU/L 0-32 above high normal Not Available [facility] ([facility]) [address] [place], [address], 05/29/2024 12:08:02 05/29/19 25 05/29/2024 OMER+L IPASE amylase 43 U/L 31-110 normal Not Available [facility] ([facility]) [address] [place], [address], 05/29/2024 12:08:03 05/29/19 25 05/29/2024 OMER+L IPASE lipase 18 U/L 14-85 normal Not Available [facility] ([facility]) [address] [facility], [place], [address], 05/29/2024 12:08:03 05/29/19 25 05/29/2024 MAGNE SIUM magnesium 1.7 mg/dL 1.6-2. 3 normal Not Available [facility] ([facility]) [address] [facility], [place], [address], 05/29/2024 12:08:03 05/29/19 25 05/28/2024 rapid SARS CoV + SARS CoV 2 Ag, QL IA, respi rator y speci men SARS CoV antigen Negati ve Not Available [address], [address], 05/28/2024 17:01:07 05/29/19 25 05/28/2024 rapid flu (A+B) Flu negati ve Not Available [address], [address], 05/28/2024 15:03:31 05/29/19 25 05/28/2024 rapid flu (A+B) Type Both A & B Not Available [address], [address], 05/28/2024 15:03:31 05/29/19 25 05/28/2024 rapid strep group A, throa t Strep negati ve Not Available [address], [address], 05/28/2024 15:03:52 05/29/19 25 05/28/2024 rapid strep group A, throa t Culture No Not Available [address], [address], 05/28/2024 15:03:52 06/15/19 25 06/15/2024 HAV, HBV, HCV hep A Ab, total Positi ve negati ve abnormal Comme nt: The HAV total antib carlitos assay detec ts both IgG and IgM but does not diffe renti ate betwe en them. A negat alicia resul t sugge sts susce ptibi lity to infec tion. A posit alicia resul t could be due to vacci natio n, previ ously resol stefan infec tion or activ e infec tion. Testi ng for HAV IgM shoul d be perfo rmed if activ e HAV infec tion is suspe cted. [facility] offer s profi les that will autom atica lly refle x posit alicia HAV total antib carlitos resul ts to IgM (e.g. , panel #[id number] HAV Antib carlitos w/ Rfx). Not Available [facility] ([facility]) [address] [facility], [place], [address], 06/15/2024 08:11:26 06/15/19 25 06/15/2024 HAV, HBV, HCV hep A Ab, IgM Negati ve negati ve A negat alicia anti- HAV IgM resul t sugge sts no recen t or curre nt HAV infec tion. Not Available [facility] ([facility]) [address] [facility], [place], [address], 06/15/2024 08:11:26 06/15/1906/15/2024 HAV, HBV, HCV HBsAg screen Negati ve negati ve Not Available [facility] ([facility]) [address] [facility], [place], [address], 06/15/2024 08:11:26 06/15/1906/15/2024 HAV, HBV, HCV hep B surface Ab, qual Non Reacti ve Non React alicia: Not immun e to HBV infec tion. Equiv ocal: Unabl e to deter mine if anti- HBs is prese nt at level s consi stent with immun ity. React alicia: Anti- HBs siria ntrat ion detec vasyl at great er than 10 mIU/m L. Ambar acevedoual is consi dered to be immun e to infec tion with HBV. Not Available [facility] ([facility]) [address] [facility], [place], [address], 06/15/2024 08:11:26 06/15/1906/15/2024 HAV, HBV, HCV hep B core Ab, tot Negati ve negati ve Not Available [facility] ([facility]) [address] [place], [address], 06/15/2024 08:11:26 06/15/1906/15/2024 HAV, HBV, HCV rfx to hbc IgM Commen t Refle x crite ricco was not met. Not Available [facility] ([facility]) [address] [facility], [place], [address], 06/15/2024 08:11:26 06/15/1906/15/2024 HAV, HBV, HCV interpretati on Commen t HBV Serol ogy Inter preta tion Chart ----- ----- ----- ----- ----- ----- ----- ----- ----- ----- ----- ----- ----- -- Inter preta tion HBsAg anti- HBs anti- HBc anti- HBc IgM ----- ----- ----- ----- ----- ----- ----- ----- ----- ----- ----- ----- ----- -- Johnston - Lori te prese nt: + Lori te absen t: - Test not indic ated: TNI ----- ----- ----- ----- ----- ----- ----- ----- ----- ----- ----- ----- ----- -- Ana Laura ptcharlottel e (yamilexe r infec vasyl and no evide nce - - - TNI of nicolei david n) ----- ----- ----- ----- ----- ----- ----- ----- ----- ----- ----- ----- ----- -- Immun e due to natur al resol stefan infec tion - + + TNI ----- ----- ----- ----- ----- ----- ----- ----- ----- ----- ----- ----- ----- -- Immun e due to vacci natio n - + - TNI ----- ----- ----- ----- ----- ----- ----- ----- ----- ----- ----- ----- ----- -- Acute Infec tion + - + + ----- ----- ----- ----- ----- ----- ----- ----- ----- ----- ----- ----- ----- -- Chron ic infec tion + - + - ----- ----- ----- ----- ----- ----- ----- ----- ----- ----- ----- ----- ----- -- Inter preta tion uncle ar* - - + +/- ----- ----- ----- ----- ----- ----- ----- ----- ----- ----- ----- ----- ----- -- *Mult iple possi bilit ies: resol stefan infec tion (most commo n); false - posit alicia anti- HBc ([facility] [place] eptib le); low- level chron ic infec tion ; resol ving acute infec tion. Not Available [facility] ([facility]) [address] [place], [address], 06/15/2024 08:11:26 06/15/19 25 06/15/2024 HAV, HBV, HCV HCV Ab Non Reacti ve non reacti ve Not Available [facility] ([facility]) [address] [place], [address], 06/15/2024 08:11:26 06/15/1906/15/2024 HAV, HBV, HCV interpretati on: Commen t Not infec vasyl with HCV unles s early or acute infec tion is suspe cted (whic h may be delay ed in an immun ocomp romis ed indiv idual ), or other evide nce exist s to indic ate HCV infec tion. Not Available [facility] ([facility]) [address] [facility], [place], [address], 06/15/2024 08:11:26 06/15/1906/15/2024 CBC WITH DIFFE RENTI AL/PL ATELE T WBC 6.5 x10e3 /uL 3.4-10 .8 normal Not Available [facility] ([facility]) [address] [place], [address], 06/15/2024 08:11:26 06/15/19 25 06/15/2024 CBC WITH DIFFE RENTI AL/PL ATELE T RBC 3.97 x10e6 /uL 3.77-5 .28 normal Not Available [facility] ([facility]) [address] [place], [address], 06/15/2024 08:11:26 06/15/19 25 06/15/2024 CBC WITH DIFFE RENTI AL/PL ATELE T hemoglobin 11.6 g/dL 11.1-1 5.9 normal Not Available [facility] ([facility]) [address] [place], [address], 06/15/2024 08:11:26 06/15/19 25 06/15/2024 CBC WITH DIFFE RENTI AL/PL ATELE T hematocrit 36.3 % 34.0-4 6.6 normal Not Available [facility] ([facility]) [address] [place], [address], 06/15/2024 08:11:26 06/15/19 25 06/15/2024 CBC WITH DIFFE RENTI AL/PL ATELE T MCV 91 fL 79-97 normal Not Available [facility] ([facility]) [address] [place], [address], 06/15/2024 08:11:26 06/15/19 25 06/15/2024 CBC WITH DIFFE RENTI AL/PL ATELE T MCH 29.2 pg 26.6-3 3.0 normal Not Available [facility] ([facility]) [address] [place], [address], 06/15/2024 08:11:26 06/15/19 25 06/15/2024 CBC WITH DIFFE RENTI AL/PL ATELE T MCHC 32.0 g/dL 31.5-3 5.7 normal Not Available [facility] ([facility]) [address] [place], [address], 06/15/2024 08:11:26 06/15/19 25 06/15/2024 CBC WITH DIFFE RENTI AL/PL ATELE T RDW 13.6 % 11.7-1 5.4 Not Available [facility] ([facility]) [address] [place], [address], 06/15/2024 08:11:26 06/15/19 25 06/15/2024 CBC WITH DIFFE RENTI AL/PL ATELE T platelets 360 x10e3 /uL 150-45 0 normal Not Available [facility] ([facility]) [address] [facility], [place], [address], 06/15/2024 08:11:26 06/15/19 25 06/15/2024 CBC WITH DIFFE RENTI AL/PL ATELE T neutrophils 59 % not estab. normal Not Available [facility] ([facility]) [address] [facility], [place], [address], 06/15/2024 08:11:26 06/15/19 25 06/15/2024 CBC WITH DIFFE RENTI AL/PL ATELE T lymphs 26 % not estab. normal Not Available [facility] ([facility]) [address] [facility], [place], [address], 06/15/2024 08:11:26 06/15/19 25 06/15/2024 CBC WITH DIFFE RENTI AL/PL ATELE T monocytes 11 % not estab. normal Not Available [facility] ([facility]) [address] [facility], [place], [address], 06/15/2024 08:11:26 06/15/19 25 06/15/2024 CBC WITH DIFFE RENTI AL/PL ATELE T eos 3 % not estab. normal Not Available [facility] ([facility]) [address] [facility], [place], [address], 06/15/2024 08:11:26 06/15/19 25 06/15/2024 CBC WITH DIFFE RENTI AL/PL ATELE T basos 1 % not estab. normal Not Available [facility] ([facility]) [address] [facility], [place], [address], 06/15/2024 08:11:26 06/15/19 25 06/15/2024 CBC WITH DIFFE RENTI AL/PL ATELE T immature cells MANAGER LOCATION Not Available [facility] ([facility]) [address] [place], [address], 06/15/2024 08:11:26 06/15/19 25 06/15/2024 CBC WITH DIFFE RENTI AL/PL ATELE T neutrophils (absolute) 3.9 x10e3 /uL 1.4-7. 0 normal Not Available [facility] ([facility]) [address] [place], [address], 06/15/2024 08:11:26 06/15/19 25 06/15/2024 CBC WITH DIFFE RENTI AL/PL ATELE T lymphs (absolute) 1.7 x10e3 /uL 0.7-3. 1 normal Not Available [facility] ([facility]) [address] [place], [address], 06/15/2024 08:11:26 06/15/19 25 06/15/2024 CBC WITH DIFFE RENTI AL/PL ATELE T monocytes(ab solute) 0.7 x10e3 /uL 0.1-0. 9 normal Not Available [facility] ([facility]) [address] [place], [address], 06/15/2024 08:11:26 06/15/19 25 06/15/2024 CBC WITH DIFFE RENTI AL/PL ATELE T eos (absolute) 0.2 x10e3 /uL 0.0-0. 4 normal Not Available [facility] ([facility]) [address] [place], [address], 06/15/2024 08:11:26 06/15/19 25 06/15/2024 CBC WITH DIFFE RENTI AL/PL ATELE T baso (absolute) 0.0 x10e3 /uL 0.0-0. 2 normal Not Available [facility] ([facility]) [address] [place], [address], 06/15/2024 08:11:26 06/15/19 25 06/15/2024 CBC WITH DIFFE RENTI AL/PL ATELE T immature granulocytes 0 % not estab. Not Available [facility] ([facility]) [address] [facility], [place], [address], 06/15/2024 08:11:26 06/15/19 25 06/15/2024 CBC WITH DIFFE RENTI AL/PL ATELE T immature grans (abs) 0.0 x10e3 /uL 0.0-0. 1 Not Available [facility] ([facility]) [address] [facility] [place], [address], 06/15/2024 08:11:26 06/15/19 25 06/15/2024 CBC WITH DIFFE RENTI AL/PL ATELE T NRBC MANAGER LOCATION Not Available [facility] ([facility]) [address] [facility], [place], [address], 06/15/2024 08:11:26 06/15/19 25 06/15/2024 CBC WITH DIFFE RENTI AL/PL ATELE T hematology comments: MANAGER LOCATION Not Available [facility] ([facility]) [address] [facility], [place], [address], 06/15/2024 08:11:26 06/15/19 25 06/15/2024 COMP. METAB OLIC PANEL (14) glucose 95 mg/dL 70-99 normal Not Available [facility] ([facility]) [address] [facility], [place], [address], 06/15/2024 08:11:27 06/15/19 25 06/15/2024 COMP. METAB OLIC PANEL (14) BUN 22 mg/dL 8-27 normal Not Available [facility] ([facility]) [address] [place], [address], 06/15/2024 08:11:27 06/15/19 25 06/15/2024 COMP. METAB OLIC PANEL (14) creatinine 0.81 mg/dL 0.57-1 .00 normal Not Available [facility] ([facility]) [address] [facility], [place], [address], 06/15/2024 08:11:27 06/15/19 25 06/15/2024 COMP. METAB OLIC PANEL (14) eGFR 73 mL/mi n/1.7 3 >59 normal Not Available [facility] ([facility]) [address] [facility] [place], [address], 06/15/2024 08:11:27 06/15/19 25 06/15/2024 COMP. METAB OLIC PANEL (14) BUN/creatini ne ratio 27 12-28 normal Not Available [facility] ([facility]) [address] [facility], [place], [address], 06/15/2024 08:11:27 06/15/19 25 06/15/2024 COMP. METAB OLIC PANEL (14) sodium 138 mmol/ L 134-14 4 normal Not Available [facility] ([facility]) [address] [facility], [place], [address], 06/15/2024 08:11:27 06/15/19 25 06/15/2024 COMP. METAB OLIC PANEL (14) potassium 4.8 mmol/ L 3.5-5. 2 normal Not Available [facility] ([facility]) [address] [facility], [place], [address], 06/15/2024 08:11:27 06/15/19 25 06/15/2024 COMP. METAB OLIC PANEL (14) chloride 102 mmol/ L 96-106 normal Not Available [facility] ([facility]) [address] [facility] [place], [address], 06/15/2024 08:11:27 06/15/19 25 06/15/2024 COMP. METAB OLIC PANEL (14) carbon dioxide, total 22 mmol/ L 20-29 normal Not Available [facility] ([facility]) [address] [place], [address], 06/15/2024 08:11:27 06/15/19 25 06/15/2024 COMP. METAB OLIC PANEL (14) calcium 9.4 mg/dL 8.7-10 .3 normal Not Available [facility] ([facility]) [address] [place], [address], 06/15/2024 08:11:27 06/15/19 25 06/15/2024 COMP. METAB OLIC PANEL (14) protein, total 6.9 g/dL 6.0-8. 5 normal Not Available [facility] ([facility]) [address] [place], [address], 06/15/2024 08:11:27 06/15/19 25 06/15/2024 COMP. METAB OLIC PANEL (14) albumin 4.0 g/dL 3.7-4. 7 normal Not Available [facility] ([facility]) [address] [place], [address], 06/15/2024 08:11:27 06/15/19 25 06/15/2024 COMP. METAB OLIC PANEL (14) globulin, total 2.9 g/dL 1.5-4. 5 Not Available [facility] ([facility]) [address] [facility] [place], [address], 06/15/2024 08:11:27 06/15/19 25 06/15/2024 COMP. METAB OLIC PANEL (14) bilirubin, total 0.2 mg/dL 0.0-1. 2 normal Not Available [facility] ([facility]) [address] [facility] [place], [address], 06/15/2024 08:11:27 06/15/19 25 06/15/2024 COMP. METAB OLIC PANEL (14) alkaline phosphatase 115 IU/L 44-121 normal Not Available [facility] ([facility]) [address] [facility], [place], [address], 06/15/2024 08:11:27 06/15/19 25 06/15/2024 COMP. METAB OLIC PANEL (14) AST (SGOT) 18 IU/L 0-40 normal Not Available [facility] ([facility]) [address] [place], [address], 06/15/2024 08:11:27 06/15/19 25 06/15/2024 COMP. METAB OLIC PANEL (14) ALT (SGPT) 26 IU/L 0-32 normal Not Available [facility] ([facility]) [address] [place], [address], 06/15/2024 08:11:27 06/15/19 25 06/15/2024 HEPAT IC FUNCT ION PANEL (7) bilirubin, direct 0.11 mg/dL 0.00-0 .40 normal Not Available [facility] ([facility]) [address] [place], [address], 06/15/2024 08:11:28 06/15/19 25 06/15/2024 HEMOG LOBIN A1C hemoglobin A1C 6.1 % 4.8-5. 6 above high normal Predi abete s: 5.7 - 6.4 Diabe gwendolyn: >6.4 Glyce tamiko contr ol for adult s with diabe gwendolyn: <7.0 Not Available [facility] ([facility]) [address] [facility], [place], [address], 06/15/2024 08:11:28 06/15/19 25 06/15/2024 HAV, HBV, HCV hep A Ab, total Positi ve negati ve abnormal Comme nt: The HAV total antib carlitos assay detec ts both IgG and IgM but does not diffe renti ate betwe en them. A negat alicia resul t sugge sts susce ptibi lity to infec tion. A posit alicia resul t could be due to vacci natio n, previ ously resol stefan infec tion or activ e infec tion. Testi ng for HAV IgM shoul d be perfo rmed if activ e HAV infec tion is suspe cted. [facility] offer s profi les that will autom atica lly refle x posit alicia HAV total antib carlitos resul ts to IgM (e.g. , panel #[id number] HAV Antib carlitos w/ Rfx). Not Available [facility] ([facility]) [address] [facility], [place], [address], 06/15/2024 17:07:27 06/15/19 25 06/15/2024 HAV, HBV, HCV hep A Ab, IgM Negati ve negati ve A negat alicia anti- HAV IgM resul t sugge sts no recen t or curre nt HAV infec tion. Not Available [facility] ([facility]) [address] [facility], [place], [address], 06/15/2024 17:07:27 06/15/19 25 06/15/2024 HAV, HBV, HCV HBsAg screen Negati ve negati ve Not Available [facility] ([facility]) [address] [facility], [place], [address], 06/15/2024 17:07:27 06/15/19 25 06/15/2024 HAV, HBV, HCV hep B surface Ab, qual Non Reacti ve Non React alicia: Not immun e to HBV infec tion. Equiv ocal: Unabl e to deter mine if anti- HBs is prese nt at level s consi stent with immun ity. React alicia: Anti- HBs siria ntrat ion detec vasyl at great er than 10 mIU/m L. Indiv idual is consi dered to be immun e to infec tion with HBV. Not Available [facility] ([facility]) [address] [facility], [place], [address], 06/15/2024 17:07:27 06/15/19 25 06/15/2024 HAV, HBV, HCV hep B core Ab, tot Negati ve negati ve Not Available [facility] ([facility]) [address] [facility], [place], [address], 06/15/2024 17:07:27 06/15/1906/15/2024 HAV, HBV, HCV rfx to hbc IgM Commen t Refle x crite ricco was not met. Not Available [facility] ([facility]) [address] [facility], [place], [address], 06/15/2024 17:07:27 06/15/1906/15/2024 HAV, HBV, HCV interpretati on Commen t HBV Serol ogy Inter preta tion Chart ----- ----- ----- ----- ----- ----- ----- ----- ----- ----- ----- ----- ----- -- Inter preta tion HBsAg anti- HBs anti- HBc anti- HBc IgM ----- ----- ----- ----- ----- ----- ----- ----- ----- ----- ----- ----- ----- -- Johnston - Lori te prese nt: + Lori te absen t: - Test not indic ated: TNI ----- ----- ----- ----- ----- ----- ----- ----- ----- ----- ----- ----- ----- -- Susce ptibl e (yamilexe r infec vasyl and no evide nce - - - TNI of vacci natio n) ----- ----- ----- ----- ----- ----- ----- ----- ----- ----- ----- ----- ----- -- Immun e due to natur al resol stefan infec tion - + + TNI ----- ----- ----- ----- ----- ----- ----- ----- ----- ----- ----- ----- ----- -- Immun e due to vacci natio n - + - TNI ----- ----- ----- ----- ----- ----- ----- ----- ----- ----- ----- ----- ----- -- Acute Infec tion + - + + ----- ----- ----- ----- ----- ----- ----- ----- ----- ----- ----- ----- ----- -- Chron ic infec tion + - + - ----- ----- ----- ----- ----- ----- ----- ----- ----- ----- ----- ----- ----- -- Inter preta tion uncle ar* - - + +/- ----- ----- ----- ----- ----- ----- ----- ----- ----- ----- ----- ----- ----- -- *Mult iple possi bilit ies: resol stefan infec tion (most commo n); false - posit alicia anti- [facility] low- level chron ic infec tion ; resol ving acute infec tion. Not Available [facility] ([facility]) [address] [facility], [place], [address], 06/15/2024 17:07:27 06/15/19 25 06/15/2024 HAV, HBV, HCV HCV Ab Non Reacti ve non reacti ve Not Available [facility] ([facility]) [address] [place], [address], 06/15/2024 17:07:27 06/15/19 25 06/15/2024 HAV, HBV, HCV interpretati on: Commen t Not infec vasyl with HCV unles s early or acute infec tion is suspe cted (whic h may be delay ed in an immun ocomp romis ed indiv idual ), or other evide nce exist s to indic ate HCV infec tion. Not Available [facility] ([facility]) [address] [facility], [place], [address], 06/15/2024 17:07:27 06/15/19 25 06/15/2024 CBC WITH DIFFE RENTI AL/PL ATELE T WBC COMMEN T [id number] /uL Pleas e refer to the follo wing speci men for addit ional lab resul ts. SEE 093-4 88-20 33-0 Not Available [facility] ([facility]) [address] [facility], [place], [address], 06/15/2024 17:07:28 06/15/19 25 06/15/2024 CBC WITH DIFFE RENTI AL/PL ATELE T RBC TNP Test not perfo rmed Not Available [facility] ([facility]) [address] [facility], [place], [address], 06/15/2024 17:07:28 06/15/19 25 06/15/2024 CBC WITH DIFFE RENTI AL/PL ATELE T hemoglobin TNP Test not perfo rmed Not Available [facility] ([facility]) [address] [place], [address], 06/15/2024 17:07:28 06/15/19 25 06/15/2024 CBC WITH DIFFE RENTI AL/PL ATELE T hematocrit TNP Test not perfo rmed Not Available [facility] ([facility]) [address] [facility], [place], [address], 06/15/2024 17:07:28 06/15/19 25 06/15/2024 CBC WITH DIFFE RENTI AL/PL ATELE T MCV MANAGER LOCATION Not Available [facility] ([facility]) [address] [facility], [place], [address], 06/15/2024 17:07:28 06/15/19 25 06/15/2024 CBC WITH DIFFE RENTI AL/PL ATELE T MCH MANAGER LOCATION Not Available [facility] ([facility]) [address] [facility], [place], [address], 06/15/2024 17:07:28 06/15/19 25 06/15/2024 CBC WITH DIFFE RENTI AL/PL ATELE T MCHC MANAGER LOCATION Not Available [facility] ([facility]) [address] [facility], [place], [address], 06/15/2024 17:07:28 06/15/19 25 06/15/2024 CBC WITH DIFFE RENTI AL/PL ATELE T RDW MANAGER LOCATION Not Available [facility] ([facility]) [address] [facility], [place], [address], 06/15/2024 17:07:28 06/15/19 25 06/15/2024 CBC WITH DIFFE RENTI AL/PL ATELE T platelets TNP Test not perfo rmed Not Available [facility] ([facility]) [address] [facility], [place], [address], 06/15/2024 17:07:28 06/15/19 25 06/15/2024 CBC WITH DIFFE RENTI AL/PL ATELE T neutrophils TNP Test not perfo rmed Not Available [facility] ([facility]) [address] [place], [address], 06/15/2024 17:07:28 06/15/19 25 06/15/2024 CBC WITH DIFFE RENTI AL/PL ATELE T lymphs TNP Test not perfo rmed Not Available [facility] ([facility]) [address] [facility], [place], [address], 06/15/2024 17:07:28 06/15/19 25 06/15/2024 CBC WITH DIFFE RENTI AL/PL ATELE T monocytes TNP Test not perfo rmed Not Available [facility] ([facility]) [address] [facility], [place], [address], 06/15/2024 17:07:28 06/15/19 25 06/15/2024 CBC WITH DIFFE RENTI AL/PL ATELE T eos TNP Test not perfo rmed Not Available [facility] ([facility]) [address] [place], [address], 06/15/2024 17:07:28 06/15/19 25 06/15/2024 CBC WITH DIFFE RENTI AL/PL ATELE T basos MANAGER LOCATION Not Available [facility] ([facility]) [address] [place], [address], 06/15/2024 17:07:28 06/15/19 25 06/15/2024 CBC WITH DIFFE RENTI AL/PL ATELE T immature cells MANAGER LOCATION Not Available [facility] ([facility]) [address] [place], [address], 06/15/2024 17:07:28 06/15/19 25 06/15/2024 CBC WITH DIFFE RENTI AL/PL ATELE T neutrophils (absolute) MANAGER LOCATION Not Available [facility] ([facility]) [address] [place], [address], 06/15/2024 17:07:28 06/15/19 25 06/15/2024 CBC WITH DIFFE RENTI AL/PL ATELE T lymphs (absolute) TNP Test not perfo rmed Not Available [facility] ([facility]) [address] [facility], [place], [address], 06/15/2024 17:07:28 06/15/19 25 06/15/2024 CBC WITH DIFFE RENTI AL/PL ATELE T monocytes(ab solute) MANAGER LOCATION Not Available [facility] ([facility]) [address] [facility], [place], [address], 06/15/2024 17:07:28 06/15/19 25 06/15/2024 CBC WITH DIFFE RENTI AL/PL ATELE T eos (absolute) TNP Test not perfo rmed Not Available [facility] ([facility]) [address] [facility], [place], [address], 06/15/2024 17:07:28 06/15/19 25 06/15/2024 CBC WITH DIFFE RENTI AL/PL ATELE T baso (absolute) TNP Test not perfo rmed Not Available [facility] ([facility]) [address] [facility], [place], [address], 06/15/2024 17:07:28 06/15/19 25 06/15/2024 CBC WITH DIFFE RENTI AL/PL ATELE T immature granulocytes MANAGER LOCATION Not Available [facility] ([facility]) [address] [place], [address], 06/15/2024 17:07:28 06/15/19 25 06/15/2024 CBC WITH DIFFE RENTI AL/PL ATELE T immature grans (abs) MANAGER LOCATION Not Available [facility] ([facility]) [address] [facility], [place], [address], 06/15/2024 17:07:28 06/15/19 25 06/15/2024 CBC WITH DIFFE RENTI AL/PL ATELE T NRBC MANAGER LOCATION Not Available [facility] ([facility]) [address] [place], [address], 06/15/2024 17:07:28 06/15/19 25 06/15/2024 CBC WITH DIFFE RENTI AL/PL ATELE T hematology comments: MANAGER LOCATION Not Available [facility] ([facility]) [address] [place], [address], 06/15/2024 17:07:28 06/15/19 25 06/15/2024 SPECI MEN STATU S REPOR T specimen status report COMMEN T Anai e refer to the follo wing speci men for addit ional lab resul ts. TEST: [id number] CBC With Diffe renti al/Pl atele t SEE 093-4 88-20 33-0 Not Available [facility] ([facility]) [address] [place], [address], 06/15/2024 17:07:28 07/06/19 25 07/06/2024 COMP. METAB OLIC PANEL (14) glucose 95 mg/dL 70-99 normal Not Available [facility] ([facility]) [address] [place], [address], 07/07/2024 05:08:49 07/06/19 25 07/06/2024 COMP. METAB OLIC PANEL (14) BUN 13 mg/dL 8-27 normal Not Available [facility] ([facility]) [address] [place], [address], 07/07/2024 05:08:49 07/06/19 25 07/06/2024 COMP. METAB OLIC PANEL (14) creatinine 0.81 mg/dL 0.57-1 .00 normal Not Available [facility] ([facility]) [address] [place], [address], 07/07/2024 05:08:49 07/06/19 25 07/06/2024 COMP. METAB OLIC PANEL (14) eGFR 73 mL/mi n/1.7 3 >59 normal Not Available [facility] ([facility]) [address] [place], [address], 07/07/2024 05:08:49 07/06/19 25 07/06/2024 COMP. METAB OLIC PANEL (14) BUN/creatini ne ratio 16 12-28 normal Not Available [facility] ([facility]) [address], [place], [address], 07/07/2024 05:08:49 07/06/19 25 07/06/2024 COMP. METAB OLIC PANEL (14) sodium 139 mmol/ L 134-14 4 normal Not Available [facility] ([facility]) [address] [place], [address], 07/07/2024 05:08:49 07/06/19 25 07/06/2024 COMP. METAB OLIC PANEL (14) potassium 5.0 mmol/ L 3.5-5. 2 normal Not Available [facility] ([facility]) [address] [facility], [place], [address], 07/07/2024 05:08:49 07/06/19 25 07/06/2024 COMP. METAB OLIC PANEL (14) chloride 103 mmol/ L 96-106 normal Not Available [facility] ([facility]) [address] [facility], [place], [address], 07/07/2024 05:08:49 07/06/19 25 07/06/2024 COMP. METAB OLIC PANEL (14) carbon dioxide, total 23 mmol/ L 20-29 normal Not Available [facility] ([facility]) [address] [facility] [place], [address], 07/07/2024 05:08:49 07/06/19 25 07/06/2024 COMP. METAB OLIC PANEL (14) calcium 9.7 mg/dL 8.7-10 .3 normal Not Available [facility] ([facility]) [address] [facility] [place], [address], 07/07/2024 05:08:49 07/06/19 25 07/06/2024 COMP. METAB OLIC PANEL (14) protein, total 6.8 g/dL 6.0-8. 5 normal Not Available [facility] ([facility]) [address] [facility] [place], [address], 07/07/2024 05:08:49 07/06/19 25 07/06/2024 COMP. METAB OLIC PANEL (14) albumin 4.2 g/dL 3.7-4. 7 normal Not Available [facility] ([facility]) [address] [facility] [place], [address], 07/07/2024 05:08:49 07/06/1907/06/2024 COMP. METAB OLIC PANEL (14) globulin, total 2.6 g/dL 1.5-4. 5 Not Available [facility] ([facility]) [address] [facility] [place], [address], 07/07/2024 05:08:49 07/06/19 25 07/06/2024 COMP. METAB OLIC PANEL (14) bilirubin, total 0.2 mg/dL 0.0-1. 2 normal Not Available [facility] ([facility]) [address] [facility] [place], [address], 07/07/2024 05:08:49 07/06/19 25 07/06/2024 COMP. METAB OLIC PANEL (14) alkaline phosphatase 110 IU/L 44-121 normal Not Available [facility] ([facility]) [address] [facility] [place], [address], 07/07/2024 05:08:49 07/06/19 25 07/06/2024 COMP. METAB OLIC PANEL (14) AST (SGOT) 25 IU/L 0-40 normal Not Available [facility] ([facility]) [address] [facility] [place], [address], 07/07/2024 05:08:49 07/06/19 25 07/06/2024 COMP. METAB OLIC PANEL (14) ALT (SGPT) 26 IU/L 0-32 normal Not Available [facility] ([facility]) [address] [facility], [place], [address], 07/07/2024 05:08:49 07/06/19 25 07/07/2024 URINE CULTU RE, ROUTI NE urine culture, routine Final report Not Available [facility] ([facility]) [address] [facility], [place], [address], 07/07/2024 05:08:50 07/06/19 25 07/07/2024 URINE CULTU RE, ROUTI NE result 1 COMMEN T Cultu re shows less than 10,00 0 colon y formi ng units of bacte ricco per fernando liter of urine . This colon y count is not gener ally consi dered to be clini jorge luis signi fican t. Not Available [facility] ([facility]) [address] [facility], [place], [address], 07/07/2024 05:08:50 07/06/19 25 07/05/2024 urina lysis , dipst ick Leukocytes Negati ve Not Available [address], [address], 06/14/2024 13:50:04 07/06/19 25 07/05/2024 urina lysis , dipst ick Nitrite negati ve Not Available [address], [address], 06/14/2024 13:50:04 07/06/19 25 07/05/2024 urina lysis , dipst ick Urobilinogen .2 Not Available [facility] [address], [address], 06/14/2024 13:50:04 07/06/19 25 07/05/2024 urina lysis , dipst ick Protein Negati ve Not Available [address], [address], 06/14/2024 13:50:04 07/06/19 25 07/05/2024 urina lysis , dipst ick pH 6.0 Not Available [address], [address], 06/14/2024 13:50:04 07/06/19 25 07/05/2024 urina lysis , dipst ick Blood Negati ve Not Available [address], [address], 06/14/2024 13:50:04 07/06/19 25 07/05/2024 urina lysis , dipst ick Specific B[place]nell 1.015 Not Available [address], [address], 06/14/2024 13:50:04 07/06/19 25 07/05/2024 urina lysis , dipst ick Ketone Negati ve Not Available [address], [address], 06/14/2024 13:50:04 07/06/19 25 07/05/2024 urina lysis , dipst ick Bilirubin Small Not Available [address], [address], 06/14/2024 13:50:04 07/06/19 25 07/05/2024 urina lysis , dipst ick Glucose Negati ve Not Available [address], [address], 06/14/2024 13:50:04 07/06/19 25 07/05/2024 urina lysis , dipst ick Appearance Clear Not Available [address], [place], [address], 06/14/2024 13:50:04 07/06/19 25 07/05/2024 urina lysis , dipst ick Color Yellow Not Available [address], [place], [address], 06/14/2024 13:50:04 05/29/19 25 05/28/2024 elect rocar diogr am No observ ation record ed. [address], [place], [address], 05/29/2024 08:06:19 05/30/19 25 05/29/2024 XR, chest , 2 view No observ ation record ed. [address], [place], [address], 05/29/2024 10:58:25 05/30/19 25 05/29/2024 CT, angio gram, chest , w/ contr ast No observ ation record ed. [address], [place], [address], 05/29/2024 13:17:53 05/30/19 25 05/29/2024 US, abdom en, limit ed No observ ation record ed. [address], [place], [address], 05/29/2024 17:25:32 05/30/19 25 05/29/2024 CT, abdom en + pelvi s, w/ contr ast No observ ation record ed. [address], [place], [address], 05/29/2024 18:53:05 05/31/19 25 05/29/2024 elect rocar diogr am No observ ation record ed. [facility] [address], [place], [address], 05/31/2024 10:16:25 06/01/19 25 05/28/2024 elect timmy gar am No observ ation record ed. [facility] [address] [facility], [place], [address], 06/06/2024 11:10:50 06/11/1906/04/2024 stres s echoc ardio gram with doppl er color flow (PROC ) No observ ation record ed. [facility] [address], [place], [address], 06/11/2024 09:00:59 Result Notes None recorded. Problems Name Problem SNOMED Code Status Onset Date Resolution Date Notes Provider Name and Address Organization Details Recorded Time Hypertensive disorder 66893298 Active 2017 Johnathan Fontana RN [address], [place], [address] , [place] - [facility] 0 14:24:39 Neuropathy 736825228 Active 2017 Johnathan Fontana RN [address], [place], [address] , [place] - [facility] 0 14:24:39 Osteoporosis 95691975 Active 2017 Johnathan Fontana RN [address], [place], [address] , [place] - [facility] 0 14:24:39 Fibromyalgia 897336298 Active 2017 Johnathan Fontana RN [address], [place], [address] , [place] [facility] 0 14:24:39 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 Johnathan Fontana RN [address], [place], [address] , [place] - [facility] 0 14:24:39 Cystocele 049611797 Active 2017 Johnathan Fontana RN [address], [place], [address] , [place] - [facility] 0 14:24:39 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 Johnathan Fontana RN [address], [place], [address] , [place] - [facility] 0 14:24:39 Female stress incontinence 95266528 Active 2019 Jackeline Prince MD [address], [place], [address] , [place] [facility] 0 13:25:53 Osteoarthriti s 880689239 Active 2019 Johnathan Fontana RN [address], [place], [address] , [place] - [facility] 0 14:24:39 Restless legs 01753224 Active 2019 Johnathan Fontana RN [address], [place], [address] , [place] [facility] 0 14:24:39 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 Procedures Surgical History Date Name Laterality Status Provider Name and Address Organization Details Recorded Time 06/15/19 25 Medication Reconcilliation completed Angelina Day [place] - [facility] 06/14/2024 13:15:36 05/29/19 25 IV Infusion completed Jolly Pulido [place] - [facility] 05/28/2024 17:06:49 03/14/19 23 Colposcopy completed Jolly Pulido [place] - [facility] 05/28/2024 14:16:31 09/12/19 22 Eye Surgery completed Jolly Pulido [place] - [facility] 05/28/2024 14:16:48 03/17/19 22 Skin Tag Removal completed Shannon Smith APRN [address], [place], [address], [place] [facility] 03/17/2021 15:28:40 08/21/19 20 Fitting & Insertion of Pessary completed Jackeline Prince MD [address], [place], [address], [place] - [facility] 08/21/2019 11:55:19 05/07/19 20 Bladder Irrigation completed Janis Grove [place] - [facility] 05/07/2019 11:53:28 05/02/19 20 Anterior Repair completed Angelina Day [place] - [facility] 05/14/2019 10:25:52 04/10/19 20 Urodynamic Studies completed Jackeline Prince MD [address], [place], [address], [place] - [facility] 04/10/2019 13:17:42 01/25/20 18 Vulvar Biopsy completed Jackeline Prince MD [address], [place], [address], [place] - [facility] 01/27/2018 10:00:13 01/25/20 18 Vulvar Biopsy completed Lisette [place] - [facility] 01/24/2018 14:06:47 12/21/19 18 Date of Last Colonoscopy completed Lisette [place] - [facility] 12/29/2017 10:29:38 06/15/19 18 Pessary Check completed Jackeline Prince MD [address], [place], [address], [place] [facility] 06/14/2017 16:20:56 06/08/19 18 Fitting & Insertion of Pessary completed Jackeline Prince MD [address], [place], [address], [place] [facility] 06/07/2017 10:53:36 05/18/19 18 Pediatric Cath completed Jackeline Prince MD [address], [place], [address], [place] [facility] 05/23/2017 10:54:31 03/14/18 98 Hysterectomy completed Jolly Pulido [place] - [facility] 05/28/2024 14:16:48 closed reduction of fracture of right femur and internal fixation using dynamic hip screw plate completed Jackeline Prince MD [address], [place], [address], [place] [facility] 04/25/2019 13:31:05 Hysterectomy, Total Abdominal completed Lisette P[place] - [facility] 05/17/2017 11:25:08 Imaging Results None recorded. Procedure Notes None recorded. Medical Equipment None Reported. Allergies Allergen ID Allergen Name Allergen Category Reaction Reaction Severity Criticality Documentation Date Start Date Code Code System Note Provider Name and Address Organization Details Recorded Time [id number] ropinirol e medicatio n hives Not available Not available 04/04/2019 01981 RxNorm [place] - [facility] 0 08:46:00 16591 gabapenti n medicatio n hives Not available Not available 05/17/2017 46358 RxNorm [place] - [facility] 8 11:17:00 14993 Lyrica medicatio n rash Not available Not available 05/17/2017 48936 1 RxNorm [place] [facility] 8 11:17:12 Medications Name Sig Start Date Stop Date Status Note LastModified by Organization Details LastModified Time fluconazol e 100 mg tablet Take 1 tablet by oral route. 03/17 completed Not Available Not Available Not Available methocarba mol 500 mg tablet TAKE 1 TABLET BY MOUTH EVERY 8 HOURS FOR 15 DAYS 05/28 completed Not Available Not Available Not Available prednisone 10 mg tablet TAKE 4 TABLETS BY MOUTH DAILY FOR 5 DAYS THEN DECREASE DOSE BY 1 TABLET DAILY UNTIL ZERO DOSE 03/17 completed Not Available Not Available Not Available ketoconazo le 2 % shampoo 04/04 completed Not Available Not Available Not Available Normal Saline Flush 0.9 % injection syringe Take 10 mL every day by injectio n route as needed. 2024 active saline flush x 2 Not Available Not Available Not Available azithromyc in 250 mg tablet TAKE ONE TABLET BY MOUTH EVERY DAY FOR 3 DAYS -- FINISH ALL MEDICINE -- 06/14 completed Not Available Not Available Not Available miconazole nitrate 2 % topical cream APPLY TO THE AFFECTED AREA(S) BY TOPICAL ROUTE 2 TIMES PER DAY FOR 7 DAYS 03/17 completed Not Available Not Available Not Available amitriptyl ine 75 mg tablet TAKE 1 TABLET BY MOUTH EVERY DAY AT BEDTIME 05/28 completed Not Available Not Available Not Available metoprolol succinate ER 50 mg tablet,ext ended release 24 hr TAKE 1 TABLET BY MOUTH ONCE DAILY active Not Available Not Available No t Available metronidaz ole 0.75 % (37.5 mg/5 gram) vaginal gel INSERT 1 APPLICAT ORFUL VAGINALL Y ONCE DAILY DIRECTED FOR 7 DAYS 05/28 completed Not Available Not Available Not Available ciprofloxa angela 250 mg tablet 04/04 completed Not Available Not Available Not Available ciprofloxa angela 500 mg tablet 08/02 completed Not Available Not Available Not Available tramadol 50 mg tablet 03/17 completed Not Available Not Available Not Available amitriptyl ine 50 mg tablet 03/17 completed Not Available Not Available Not Available oxycodone- acetaminop hen 5 mg-325 mg tablet 03/17 completed Not Available Not Available Not Available clindamyci n 1 % topical gel 04/04 completed Not Available Not Available Not Available prednisone 1 mg tablet TAKE 3 TABLETS BY MOUTH EVERY DAY FOR 2 WEEKS THEN TAKE 2 TABLETS BY MOUTH EVERY DAY 03/17 completed Not Available Not Available Not Available baclofen 10 mg tablet 04/04 completed Not Available Not Available Not Available benzonatat e 100 mg capsule TAKE 1 CAPSULE BY MOUTH TWICE DAILY FOR 5 DAYS active Not Available Not Available No t Available cephalexin 500 mg capsule 08/02 completed Not Available Not Available Not Available erythromyc in 5 mg/gram (0.5 %) eye ointment APPLY A 1 CM RIBBON OF OINTMENT INTO THE LOWER CONJUNCT IVAL SACS IN THE AFFECTED EYE(S) THREE TIMES DAILY DIRECTED active Not Available Not Available No t Available ropinirole 0.5 mg tablet 04/25 completed Not Available Not Available Not Available lidocaine 5 % topical patch 05/28 completed Not Available Not Available Not Available ibuprofen 400 mg tablet 05/28 completed Not Available Not Available Not Available docusate sodium 100 mg capsule Take 100 mg by oral route. 03/17 completed Not Available Not Available Not Available triamteren e 37.5 mg-hydroch lorothiazi de 25 mg tablet TAKE 1 TABLET BY MOUTH ONCE DAILY active Not Available Not Available No t Available raloxifene 60 mg tablet 03/17 completed Not Available Not Available Not Available allopurino l 300 mg tablet TAKE 1 TABLET BY MOUTH ONCE DAILY DIRECTED active Not Available Not Available No t Available sodium chloride 0.9 % intravenou s solution Inject 1000 mL by intraven ous route. 2024 active Not Available Not Available Not Avai lable metoprolol succinate ER 25 mg tablet,ext ended release 24 hr 05/28 completed Not Available Not Available Not Available methylpred nisolone 4 mg tablets in a dose pack TAKE BY MOUTH DIRECTED ON INSIDE OF PACKAGE 05/28 completed Not Available Not Available Not Available albuterol sulfate HFA 90 mcg/actuat ion aerosol inhaler INHALE 2 PUFFS BY MOUTH 4 TIMES DAILY NEEDED FOR WHEEZING 05/28 completed Not Available Not Available Not Available ferrous sulfate 325 mg (65 mg iron) tablet,del ayed release Take 325 mg by oral route. 03/17 completed Not Available Not Available Not Available colchicine 0.6 mg tablet TAKE 1 TABLET BY MOUTH TWICE DAILY active Not Available Not Available No t Available ondansetro n 4 mg disintegra ting tablet 05/28 completed Not Available Not Available Not Available cefdinir 300 mg capsule TAKE ONE CAPSULE BY MOUTH TWICE DAILY -- FINISH ALL MEDICINE -- 06/14 completed Not Available Not Available Not Available amitriptyl ine 100 mg tablet TAKE 1 TABLET BY MOUTH ONCE DAILY active for her feet Not Available Not Available Not Available etodolac ER 600 mg tablet,ext ended release 24 hr 08/02 completed Not Available Not Available Not Available oxycodone 5 mg tablet 05/28 completed Not Available Not Available Not Available enoxaparin 40 mg/0.4 mL subcutaneo us syringe 03/17 completed Not Available Not Available Not Available azithromyc in 500 mg tablet TAKE 1 TABLET BY MOUTH DAILY FOR 7 DAYS 03/17 completed Not Available Not Available Not Available Asprin Ec Low Dose 81 mg tablet,del ayed release Take 1 tablet every day by oral route. active Not Available Not Available No t Available Premarin 0.625 mg/gram vaginal cream Apply a pea sized amount to your vagina twice a week at night 05/28 completed Not Available Not Available Not Available ketorolac 0.4 % eye drops 03/17 completed Not Available Not Available Not Available etodolac 100mg prn active Not Available Not Available No t Available Vitamin D qd 2017 active Not Available Not Available Not Avai lable Suprep Bowel Prep Kit 17.5 gram-3.13 gram-1.6 gram oral solution 12/29 completed Not Available Not Available Not Available Xarelto 15 mg tablet 03/17 completed Not Available Not Available Not Available Xarelto 20 mg tablet TAKE 1 TABLET BY MOUTH EVERY DAY WITH FOOD 05/28 completed Not Available Not Available Not Available Vitals Date Recorded Body height Body mass index (BMI) Body weight Respiratory rate Oxygen saturation Oxygen saturation in Arterial blood by Pulse oximetry Heart rate Systolic blood pressure Diastolic blood pressure Provider Name and Address Organization Details Last Updated DateTime 2 154.94 cm 30.6 kg/m2 40105.9 6 g 18 /min 96 % 96 % 116 /min 126 mm[Hg] 78 mm[Hg] Angelina Myless [place] - [facility] 2 14:29:51 Date Recorded Body weight Body temperature Heart rate Oxygen saturation Oxygen saturation in Arterial blood by Pulse oximetry Respiratory rate Heart rate Heart rate Systolic blood pressure Diastolic blood pressure Provider Name and Address Organization Details Last Updated DateTime 5 68872.9 6 g 98.8 [degF] 130 /min 95 % 95 % 18 /min 131 /min 104 /min 110 mm[Hg] 70 mm[Hg] Jolly Pulido [place] - [facility] 5 14:15:52 Date Recorded Body height Body mass index (BMI) Body weight Heart rate Oxygen saturation Oxygen saturation in Arterial blood by Pulse oximetry Respiratory rate Systolic blood pressure Diastolic blood pressure Provider Name and Address Organization Details Last Updated DateTime 5 154.94 cm 29.1 kg/m2 63737.2 2 g 96 /min 100 % 100 % 18 /min 140 mm[Hg] 78 mm[Hg] Angelina Myless [place] - [facility] 5 13:21:42 Date Recorded Body height Provider Name an d Address Organization Details Last Updated DateTime 07/05/2024 154.94 cm Jolly Pulido [place] - [facility] 0 07/05/2024 08:08:18 Date Recorded Body height Body mass index (BMI) Body weight Systolic blood pressure Diastolic blood pressure Provider Name and Address Organization Details Last Updated DateTime 08/21/2019 154.94 cm 28.5 kg/m2 99364.45 g 130 mm[Hg] 88 mm[Hg] Yesenia Alfaro [place] - [facility] 0 11:22:44 Social History Question Answer Notes LastModified by Organizat ion Details LastModified Time Tobacco Smoking Status Never Smoker [place] - [facility] 05/17/2017 11:23:35 Do You Have An Advance Directive? Yes Information not available 05/28/2024 Are You Blind Or Do You Have Difficulty Seeing? No Information not available 05/17/2017 Is Blood Transfusion Acceptable In An Emergency? Yes Information not available 05/17/2017 What Is Your Level Of Caffeine Consumption? Occasional Information not available 05/17/2017 How Much Tobacco Do You Chew? None Information not available 05/17/2017 Are You Deaf Or Do You Have Serious Difficulty Hearing? No Information not available 05/17/2017 What Type Of Diet Are You Following? REGULAR Information not available 05/17/2017 What Is The Highest Grade Or Level Of School You Have Completed Or The Highest Degree You Have Received? [id number] Information not available 05/28/2024 How Many Days Of Moderate To Strenuous Exercise, Like A Brisk Walk, Did You Do In The Last 7 Days? 1 Information not available 12/29/2017 On Those Days That You Engage In Moderate To Strenuous Exercise, How Many Minutes, On Average, Do You Exercise? 1 Information not available 12/29/2017 Have There Been Any Changes To Your Family Or Social Situation? No Information no t available 03/17/2021 How Hard Is It For You To Pay For The Very Basics Like Food, Housing, Medical Care, And Heating? 1 Information not available 12/29/2017 Live Alone Or With Others? With Others Information not available 05/17/2017 Do You Have A Medical Power Of Registered Nurse Surgical Services? No Information not available 03/17/2021 What Was The Date Of Your Most Recent Tobacco Screening? 05/28/2024 Information not available 05/28/2024 How Many Children Do You Have? 2 Information not available 05/17/2017 Performs Monthly Self-breast Exam? Yes Information no t available 05/17/2017 Do You Use Protection During Sex? No Information not available 12/29/2017 Do You Use Protection Against STDs? No Information not available 05/28/2024 What Is Your Relationship Status? Information not available 03/17/2021 Do You Use Your Seat Belt Or Car Seat Routinely? Yes Information not available 05/28/2024 Seat Belts Used Routinely Yes Information not available 05/17/2017 Are You Sexually Active? No Information not available 05/17/2017 Do You Have Smoke And Carbon Monoxide Detectors In Your Home? Yes Information not available 05/28/2024 Are You Passively Exposed To Smoke? No Information no t available 05/28/2024 How Much Tobacco Do You Smoke? No Information not available 05/17/2017 General Stress Level Medium Information not available 05/17/2017 Do You Use Sunscreen Routinely? Yes Information not available 05/17/2017 Has Tobacco Cessation Counseling Been Provided? No Information not available 05/17/2017 Do You Have Difficulty Walking Or Climbing Stairs? No Information not available 05/17/2017 Sex: Female Functional Status Question Answer Note LastModified by Organizat ion Details LastModified Time Do you use any illicit or recreational drugs? No Information not available 03/17/2021 What is your level of alcohol consumption? None Information not available 05/17/2017 Are you currently employed? No Information not available 05/17/2017 Do you have transportation difficulties? No Information not available 03/17/2021 Urinary incontinence assessment performed? Yes Information not available 05/17/2017 Are you able to walk? YESWOREST Information not available 05/17/2017 Do you have difficulty doing errands alone? No Information not available 05/17/2017 Are you able to care for yourself? Yes Information n ot available 03/17/2021 Do you have difficulty dressing or bathing? No Information not available 05/17/2017 Do you or have you ever used e-cigarettes or vape? Never used electronic cigarettes Information not available 05/28/2024 What is your exercise level? None Information not available 05/17/2017 Mental Status Question Answer Note LastModified by Organizat ion Details LastModified Time Do you feel stressed (tense, restless, nervous, or anxious, or unable to sleep at night)? [id number] Information not available 05/28/2024 Do you have difficulty concentrating, remembering or making decisions? No Information no t available 05/17/2017 Family History Relationship Description Onset Age of this Age Resolved Age Notes LastModified by Organization Details LastModified Time Brother Multiple lumps 71 [email or web address] Not available 2024 14:16:27 Brother Dementia [email or web address] Not availabl e 05/17/2017 11:22:55 Father Lymphedema 56 [email or web address] Not availab le 05/28/2024 14:16:27 Mother Heart disease 56 [email or web address] Not available 2024 14:16:27 Mother Arthritis cbuckler Not availabl e 05/28/2024 14:16:27 Mother Blood coagulation disorder cbuckler Not available 2024 14:16:27 Maternal Aunt Malignant tumor of breast cbuckler Not available 2024 14:16:27 Unspecified Relation Malignant tumor of breast niece cbuckler Not available 2024 14:16:27 Notes:lymph node cancer-fath er Medical History Condition Response Pancreatitis N Other N Gout Y Atrial Fibrillation N congenital heart disease N Blood Diseases N Hyperthyroidism N Rheumatoid arthritis N Blood Transfusion N Erectile Dysfunction N amputation N Skin Lesions N Depression N Pneumonia N Incontinence N Murmur N Edema N Alzheimer's Disease N Migraine Headaches N Tobacco Abuse N Anxiety Disorder N Muscle, Joint, or Bone Problems Y Hemorrhoids N Obesity N Vision or Eye Problems N Restless Leg Syndrome Y Arthritis Y Polyps N Infertility N Carpal Tunnel N Acid Reflux (GERD) Y Cancer N Varicosities N Stroke N Tendonitis N Crohn's Disease N Hypercholesterolemia N Skin Cancer N Headaches N Fibromyalgia Y Irritable Bowel Syndrome N Anal Fissure N Kidney Disease N Heart Problems N Hospitalizations N Gallstones N Kidney or Bladder Problems Y Goiter N Acne N Eating Disorder N Hickman's Esophagus N Hypertriglyceridemia N Constipation N Embolism N Vitamin B12 Deficiency N Deviated Septum N AIDS/HIV N Myocardial Infarction N Asthma N Mitral Valve Disorders N Vertigo N Hepatitis N Thyroid Cancer N Neuropathy Y History of DVT N Herniated Disc N Chicken Pox N Von Willebrands Disease N Thrombophilias N Breast Cancer N Hernia N Plantar Fasciitis N Lung Disease N Hypothyroidism N Defects or Inherited Disease N Breast Problem N Ovarian Cyst N Anesthesia Complications N Testosterone Deficiency N Interstitial Cystitis N Congenital Anomalies N Hypoglycemia N Blood clot Y Vitamin D Deficiency N Cellulitis N Endometriosis N Fracture N Bladder or Kidney Problems N Schizophrenia N Panic Disorder N Concussion N Spina Bifida N Osteoarthritis Y Parkinson's Disease N Disc Protrusion N STI N Esophagitis N Angina N Thyroid Problems N GI Problems N ADD/ADHD N Anemia N Multiple Sclerosis N Abnormal PAP N Lumbago N Mental Illness N Psychiatric Illness N Ovarian Cancer N Diabetes N Degenerative Disc Disease Y Seizures/Epilepsy N Syncope N Insomnia N Hyperlipidemia Y Eczema N Diverticulitis Y Dementia N Attention Deficient Disorder N Abuse/Domestic Violence N Ulcerative colitis N Cerebrovascular Disease N Depression N Guillain-[place] N Sleep Apnea N Aneurysm N Heart Disease N Bronchitis N Suicidal Ideation N Pre-Eclampsia N Hypertension Y Osteoporosis Y Gynecological History Statement/Question Response Abnormal Pap N Date of Last Mammogram Date of LMP 03/14/1988 On BCP's at Conception? N Post Menopausal Bleeding N STIs/STDs N Colposcopy 03/14/2022 HPV Vaccine N Current Control Method None Age at Menarche 10 Age at First Child 14 Last Annual Exam/Provider 12/29/2017 w/K RA If Post Menopausal, Age at Menopause 30 Date of Last Colonoscopy 12/20/2017 Most Recent Bone Density Sexually Active? N Menses Monthly N Date of Last Pap Smear Sexual Problems? N Hormone Replacement Therapy N Obstetrics History GPAL:G 2 P 2 0 0 2 Type Value Full Term 2 Living 2 Total 2 Immunizations Vaccine Type Date Status Note Provider Srini hargrove and Address Organization Details Recorded Time Influenza, split virus, trivalent, PF 0 completed Not Available [facility] 07/05/2024 08:04:28 Influenza, split virus, trivalent, preservative 7 completed Not Available [facility] 07/05/2024 08:04:28 Influenza, split virus, quadrivalent, PF 8 completed Not Available [facility] 07/05/2024 08:04:28 Influenza, split virus, quadrivalent, PF 9 completed Not Available [facility] 07/05/2024 08:04:28 Influenza, split virus, quadrivalent, PF 0 completed Not Available [facility] 07/05/2024 08:04:28 COVID-19, mRNA, LNP-S, PF, 100 mcg/0.5mL dose or 50 mcg/0.25mL dose 1 completed Not Available [facility] 07/05/2024 08:04:28 SARS-COV-2 (COVID-19) vaccine, UNSPECIFIED 1 completed Not Available [facility] 07/05/2024 08:04:28 COVID-19, mRNA, LNP-S, PF, 100 mcg/0.5mL dose or 50 mcg/0.25mL dose 1 completed Not Available [facility] 07/05/2024 08:04:28 Influenza, split virus, quadrivalent, PF 1 completed Not Available [facility] 07/05/2024 08:04:28 COVID-19, mRNA, LNP-S, PF, 100 mcg/0.5mL dose or 50 mcg/0.25mL dose 1 completed Not Available [facility] 07/05/2024 08:04:28 Influenza, split virus, quadrivalent, PF 2 completed Not Available [facility] 07/05/2024 08:04:28 zoster recombinant 3 completed Not Available [facility] 07/05/2024 08:04:28 Tdap 3 completed Not Available [facility] 07/05/2024 08:04:28 Influenza, split virus, quadrivalent, PF 3 completed Not Available [facility] 07/05/2024 08:04:28 zoster recombinant 3 completed Not Available [facility] 07/05/2024 08:04:28 Influenza, split virus, trivalent, PF 4 completed Not Available [facility] 07/05/2024 08:04:28 Past Encounters Encounter ID Performer Location Encounter Start Date Encounter Closed Date Diagnosis/Indication Diagnosis SNOMED-CT Code Diagnosis ICD10 Code Diagnosis Note [id number] MD Yahir Guzman [employer]ATING [employer] [address] [place] [address] [place] [id number] 05/17/2017 10:11:49 05/17/2017 11:50:29 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 10 Rectocele with enterocele 883354699 N81.5 [id number] MD Yahir Guzman [employer]ULATING [employer] OPER[employer] [address] [place] [address] [place] [id number] 06/07/2017 09:32:34 06/07/2017 11:53:10 Cystocele 308211097 N81.10 Atrophy of vagina 837723 009 N95.2 Rectocele with enterocele 346240390 N81.5 [id number] MD Yahir Guzman [employer]ULATING B[employer] OPERATOR [address] [place] [address] [place] [id number] 7 06/14/2017 15:58:39 06/14/2017 16:19:46 Cystocele 281245284 N81.10 [id number] MD Yahir Guzman [employer]ULATING [employer] OPER[employer] [address] [place] [address] [place] [id number] 7 06/27/2017 13:52:00 06/27/2017 14:58:18 Cystocele 161315494 N81.10 [id number] MD Yahir Guzman [employer]ATING [employer] OPER[employer] [address] [place] [address] [place] [id number] 7 12/29/2017 10:21:13 12/29/2017 10:55:27 Cystocele 173311707 N81.10 Atrophy of vagina 492313 009 N95.2 Routine gy necologic examination done 3545488211 9101 Z01.419 Depression screening 171 261057 Z13.89 Diet education 14681738 Z71.3 encouraged healthy diet Counseling 087699739 Z71 .82 Exercise counsellin g. Patient encouraged to exercise 30 minutes 5 days a week. Examinatio n of blood pressure 220731792 Z01.30 Body mass index 25-29 - overweight 290438259 Z68.28 Screening mammography [address] 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 [id number] MD Yahir Guzman [employer]ULATING [employer] OPER[employer] [address] [place] [address] [place] [id number] 7 12/14/2018 14:21:43 12/14/2018 15:35:59 Cystocele 361024448 N81.10 Atrophy of vagina 370976 009 N95.2 Urinary incontinence 165 367217 R32 [id number] MD Yahir Flower [employer]ATING [employer] OPER[employer] [address] [place] [address] [place] [id number] 7 04/04/2019 08:38:49 04/04/2019 10:08:17 [id number] MD Yahir Guzman [employer]ATING [employer] OPER[employer] [address] [place] [address] [place] [id number] 04/04/2019 08:38:49 04/04/2019 10:08:17 Anterior vaginal wall prolapse 365093945 N81.10 Vaginal va ult prolapse 820588301 N81.89 Mixed urin khoi incontinence 429573554 N39.46 Atrophy of vagina 695790 009 N95.2 [id number] MD Yahir Guzman [employer]ATING B[employer] OPER[employer] [address] [place] [address] [place] [id number] 7 04/10/2019 08:41:39 04/10/2019 16:26:09 Mixed urinary incontinence 052061577 N39.46 Anterior v aginal wall prolapse 028622498 N81.10 [id number] MD Yahir Guzman CO[employer]ATING [employer] OPERATOR [address] [place] [address] [place] [id number] 7 04/25/2019 11:12:48 04/25/2019 11:46:18 Mixed urinary incontinence 488178715 N39.46 Anterior v aginal wall prolapse 129839584 N81.10 Pre-surger y evaluation 460800462 Z01.998 [id number] MD Yahir Guzman [employer]ATING B[employer] OPER[employer] [address] [place] [address] [place] [id number] 7 05/02/2019 07:58:45 05/09/2019 09:57:30 [id number] MD Yahir Guzman CO[employer]ULATING B[employer] OPERATOR [address] [place] [address] [place] [id number] 7 05/07/2019 11:15:31 05/07/2019 12:17:00 Constipation 78273431 K59.00 Candidiasis of skin 4988 3006 B37.2 Postoperat alicia retention of urine 981229438 R33.8 Postoperative visit 1836 94359 Z09 [id number] MD Yahir Guzman CO[employer]ULATING B[employer] OPER[employer] [address] [place] [address] [place] [id number] 7 05/14/2019 10:16:43 05/14/2019 11:19:49 Postoperative visit 119112704 Z09 Cough 61594372 R05 [id number] MD Yahir Guzman CO[employer]ULATING B[employer] OPERATOR [address] [place] [address] [place] [id number] 7 08/03/2019 10:25:00 08/03/2019 11:39:31 Relaxation of pelvic floor 185021307 N81.89 Cystocele 706325741 N81. 10 Vaginal va ult prolapse 091882741 N81.89 [id number] MD Yahir Guzman CO[employer]ULATING [employer]ATH OPERATOR [address] [place] [id number] GINETTE Ramires [address] 08/21/2019 11:09:24 08/21/2019 11:54:44 Relaxation of pelvic floor [id number] N81.89 Cystocele 217168756 N81. 10 Vaginal va ult prolapse 227182360 N81.89 [id number] MARK Ledbetter [address] [place] [address] 03/17/2021 14:17:39 03/17/2021 16:12:07 Skin tag [id number] L91.8 removed x1 Senile hyperkeratosis 39 5012116 L82.1 offered reassuranc e [id number] Yg Duarte [address] [address] 05/28/2024 13:45:13 05/28/2024 16:21:28 Dizziness 430581078 R42 pt states better after fluidsdr arik appointmen t in am at 9 Cough 37166603 R05.9 Nausea and vomiting 1693 2000 R11.2 Diarrhea 52631256 R19.7 Dehydration 09317919 E86 .0 Conjunctivitis 6598387 H 10.9 [id number] Yg Duarte [address] [address] 06/14/2024 13:06:50 06/14/2024 14:13:40 Liver enzymes level above reference range 318682205 R74.8 Acute urin khoi tract infection 755449978 N39.0 Acute cough [id number] 44016512 R05.1 [id number] Yg Duarte [address] [address] 07/05/2024 08:03:34 07/05/2024 14:30:17 Essential hypertension 74671514 I10 Abnormal urine 698418207 R82.90 Health Concerns Section Related Observation LastModified by Organization Detai ls LastModified Time None Recorded Concern Status LastModified by Organization Details LastModified Time None Recorded Advance Directives Directive Y: Payers Insurance Date Sequence Insurance Name Policy Number Policy Pearce Covered Member ID Pearce Member ID Guarantor Name 07/18/2024 1 [employer] (MEDICARE REPLACEMENT/ ADVANTAGE - PPO) Tigist Meeks Earlywine [id number] Tigist Earlywine 06/12/2024 [place] Tigist S Earlywine [id number] Tigist Earlywine Notes Date Note Type Note Provider Name and Address Organization Details Recorded Time 08/21/2019 text/html Tigist is doing w ell without complaints. No more urinary incontinence. Still with prolapse symptoms. Has been using the vaginal estrogen. Breathing well without CP or SOB. No vaginal bleeding Jackeline Prince MD [address], [place], [address], [place] - [facility] 08/21/2019 11:56:17 03/17/2021 text/html Tigist ( Amy) i s a 76 year old female who presents to Dermatology for a skin check. She is requesting to have a tag removed on the left neck. Shannon Smith, MARK [address], [place], [address], [facility] - [facility] 03/17/2021 15:30:39 05/28/2024 text/html 79 yr old female presents for body aches, cough, sore throat, vomiting, diarrhea for the last few days. Has also had some dizziness for quite some time, maybe about a year per family. eyes red and matted with drainage Jolly lock [place] - [facility] 05/29/2024 07:46:53 06/14/2024 text/html Emergency Depart ment Follow-Up RecordReported bypatient.Discharge InformationName of hospital/urgent care patient was seen: ([facility]); Patient presented to hospital/urgent care on or around: actual date 05-29-2023; Patient presented to hospital for treatment of: (nausea/vomiting/diar que and cough); Treatment received by hospital/urgent care: (admitted); Patient's condition has: unchanged; Hospital records available at the time of this visit: Yes 79 year old female who presents to the office today for ahospital follow up- continued cough,has concerns of pain in right neck, shoulders, arms- was told to stop allopurinol, colchicine and etodolac. was sent home on renee Duarte APRN [address], [place], [address], [place] - [facility] 06/14/2024 14:19:25 07/05/2024 text/html 79 yr old female presents for labs/urine check. GINETTE Mancilla - [facility] 07/05/2024 08:18:22 OBGyn Episode No OBEpisode recorded.
--- NOTE | 2024-09-07 07:30 | US_ITS ---
FINAL REPORT TECHNIQUE: Multiple transverse and longitudinal images CLINICAL HISTORY: 4.2 cm cyst of the liver seen on echo U/S COMPARISON: 05/29/2024 FINDINGS: The gallbladder shows no wall thickening, distention or stone disease. No biliary ductal dilatation is appreciated. No fluid collections are seen. Fatty infiltration of the liver is present without a focal mass. Limited portions of the right kidney demonstrate a simple cyst of the lower pole of the right kidney, which measures up to 2.6 cm in size. Pancreas is largely obscured. IMPRESSION: 1. No evidence of cholelithiasis or biliary obstruction. 2. Fatty infiltration of the liver is present without a focal mass. Reviewed, Interpreted and Dictated by Miguel Angel Hayden MD Transcribed by Yen Espinoza Authenticated and [facility]
== END 2024-09-07 23:59 | disposition home or self-care (01) ==
LOC: RAD 07:11
PROVIDERS: PCP Nurse Practitioner Family; Visit Provider Nurse Practitioner Family
DX: K76.0 Fatty (change of) liver, not elsewhere classified (principal); K76.89 Other specified diseases of liver
CPT/HCPCS: 76705

== ENCOUNTER 2024-10-09 15:59 | Outpatient (CLI) | payer MEDICARE, SELFPAY ==
--- OUTSIDE RECORDS SUMMARY | 2024-10-09 16:01 | XMS_ITS | Clinical Summary ---
Author Organization [facility] Address [address] [place] [address] Care Team Providers Care Draw Furnace Tender Name Role Phone Garry García MD Primary Care Provider +1- [phone] Allergies Active Allergy Reactions Criticality Noted Date [...] drink first t cate in the morning (EYE-SHIP LOADER) to steady your nerves or to get rid of a hangover? 0 11/27/2022 CAGE Questionnaire Score 0 023 Utilities Answer Date Recorded In the past 12 months has th e [employer], gas, oil, or water [employer] threatened to shut off services in your [...] or (1 - 1-dose 75+ series) 2018 [id number] Vaccine ( season) 2023 01/25/2021, 05/23/2020, 05/12/2020, Additional history exists [facility]- SDOH Screenings 07/06/2024 [facility]-Adult SDOH Screenings 07/06/2024 01/06/2024 [facility]-Influenza Vaccine (#1) 11/12/202401/02, 12/06/2022, 12/25/2021, Additional history exists [facility]-DTaP,Tdap,and Td Vaccines (2 - Td or Tdap) 09/06/2032 09/06/2022 [facility]-Zoster Vaccines Completed 02/25/2023, [facility]-Obesity Intervention Completed 01/27/2024, 12/13 HPV Vaccines [...] Documents on File Type Date Recorded Patient Status Controller Expl anation Power of Practice Lead 12/01/2022 11:10 AM Advance Directives and Livin g Will 12/01/2022 11:10 AM Advance Directives and Livin g Will 11/30/2022 11:58 AM Power of Practice Lead 11/30/2022 11:56 AM * Full Code (Latest Code Status on File) Date Activated Date Inactivated Comments 01/06/2024 5:35 AM 01/10/2024 2:42 PM Question Answer Comments Patient has decision-making capacity? Yes * Full Code Date Activated Date Inactivated Comments 11/27/2022 2:42 AM 11/30/2022 3:22 PM Question Answer Comments Patient has decision-making capacity? Yes Care Teams Draw Furnace Tender Relationship Specialty Start Date End Date Garry García MD [address] [place] [id number] PCP - General 07/25/20
--- OUTSIDE RECORDS SUMMARY | 2024-10-09 16:01 | XMS_ITS | Encounter Summary ---
Author Organization Healthcare Address [address] [place] [address] Care Team Providers Care Rn Delivery Name Role Phone Garry García MD Primary Care Provider +1- [phone] Reason for Visit * Reason Comments Med Refill Encounter Details Date Type Department Care Team (Late st Contact Info) Description 04/14/2024 Refill [facility] General Surgery [address], [address] [place] [address] Soni Aguilar, PACKAGING DESIGNER [address] [place] [address] Social History Tobacco Use Types [...] No 01/06/2024 Housing Stability Vital Sign Answer Eliesre e Recorded In the last 12 months, [...] place to sleep or slept in a fci (including now)? No 01/06/2024 CAGE ASSESSMENT Answer [...] drink first t cate in the morning (EYE-BUSINESS SYSTEMS ADVISOR) to steady your nerves or to get [...] documented as of this encounter Care Teams Rn Delivery Relationship Specialty Start Date End Date Garry García MD [address] [place] [address] [phone] PCP - General 07/25/20 documented as of this encounter
--- OUTSIDE RECORDS SUMMARY | 2024-10-09 16:01 | XMS_ITS | Clinical Summary ---
Author Organization [facility] Address [address] [place] [address] Care Team Providers Care Administrative Office Manager Name Role Phone Garry García MD Primary Care Provider Allergies Active Allergy Reactions Criticality Noted Date Comments Gabapentin Rash Low 09/29/2023 Pregabalin Rash Low 09/29/2023 Ropinirole Itching Medium 09/29/2023 Hallucinations Medications amitriptyline (ELAVIL) 75 MG tablet Take 1 tablet by mouth Every Night. Active traMADol (ULTRAM) 50 MG tablet Take 1 tablet by mouth Every 6 (Six) Hours As Needed for Moderate Pain. Active Cholecalciferol (vitamin D3) 125 MCG (5000 UT) tablet tablet Take 1 tablet by mouth Daily. Active allopurinol (ZYLOPRIM) 300 MG tablet Take 1 tablet by mouth Daily. Active triamterene (DYRENIUM) 50 MG capsule Take 1 capsule by mouth Daily. Active ASPIRIN 81 PO Take 1 tablet by mouth Daily. Active metoprolol succinate XL (TOPROL-XL) 50 MG 24 hr tablet Take 1 tablet by mouth Daily. 09/20/2023 Active triamterene-hyd rochlorothiazid e (MAXZIDE-25) 37.5-25 MG per tablet Take 1 tablet by mouth Every Morning. Active etodolac (LODINE) 200 MG capsule Take 1 capsule by mouth Every 8 (Eight) Hours. Active albuterol sulfate HFA 108 (90 Base) MCG/ACT inhaler INHALE 2 PUFFS BY MOUTH 4 TIMES DAILY NEEDED FOR WHEEZING Active colchicine 0.6 MG tablet Take 1 tablet by mouth 2 (Two) Times a Day. 180 tablet 1 02/06/2024 Active methylPREDNISol one (MEDROL) 4 MG dose pack Take as directed on package instructions. 21 tablet 03/08/2024 Active Active Problems Problem Noted Date Diagnosed Date Multiple joint pain 02/01/2024 Assessment & Plan (02/06/2024 4:41 PM EST): She has a 30 year history of pain. Previous parts salesman diagnosed fibromyalgia, diffuse osteoarthritis, and calcium pyrophosphate deposition disease. Unable to take nonsteroidals due to chronic anticoagulation. Failed gabapentin and Lyrica due to allergic reactions. Some relief with tramadol and amitriptyline. Treated by primary care with prednisone 10 mg for 2 years. X-ray shows chondrocalcinosis and severe osteoarthritis. Rheumatoid factor, CCP antibody, antinuclear antibody all negative. Sed rate and CRP normal.. No further pseudogout flare on colchicine. Pt global is 5/10. Pain level is 7/10 Tolerating colchicine bid. Continue colchicine. Labs today. F/u 4 months. Calcium pyrophosphate deposition disease 024 Assessment & Plan (02/01/2024 3:01 PM EST): She clearly has chondrocalcinosis on x-ray. She had what appeared to be pseudogout flares. No flares in interim. Flares resolved with colchicine Fibromyalgia 02/01/2024 Assessment & Plan (02/01/2024 3:01 PM EST): Current treatment amitriptyline and tramadol per PCP. Failed Lyrica and gabapentin.. This can be managed by her primary care provider. Primary osteoarthritis of both hands 02/01/2024 Assessment & Plan (02/01/2024 3:01 PM EST): Clinically fairly severe. Stable. Chronic back pain 02/01/2024 Assessment & Plan (02/01/2024 3:01 PM EST): She has chronic diffuse back pain in both the axial regions and the soft tissues. She has no radicular symptoms. I told her if the symptoms become severe enough I could refer her to a pain center for possible injections. Generalized osteoarthritis 02/01/2024 Assessment & Plan (02/01/2024 3:01 PM EST): Knee is currently the worst area. See above. Osteoporosis 02/01/2024 Assessment & Plan (02/06/2024 4:41 PM EST): History. Fosamax in the past with possible atypical femur fracture. I would avoid bisphosphonates. DEXA scan 12/03/2020 reveals lowest T-score of - 1.4. Reviewed with pt. Recheck next visit that DEXA is available. Peripheral polyneuropathy 02/01/2024 Assessment & Plan (02/01/2024 3:01 PM EST): Idiopathic. She is very symptomatic with this. This drives her hand and foot pain. This is managed by her primary care provider. Primary osteoarthritis of both first carpometaca rpal joints 02/01/2024 Assessment & Plan (02/01/2024 3:01 PM EST): Right worse than left. Less pain recently. Previously we discussed injection, splinting, and surgery. She will consider. Immunizations Immunization Administration Dates Next Due COVID-19 (UNSPECIFIED) 05/12/2020 Family History Medical History Relation Name Comments Arthritis Father Other Father LYMPH NODES Arthritis Mother Cancer Mother Arthritis Sister Relation Name Status Comments Father Mother Sister Social History Tobacco Use Types Packs/Day Years Used Date Smoking Tobacco: Never Passive Smoke Exposure: Past Smokeless Tobacco: Never Tobacco Cessation:Counseling Given: Not Answered Alcohol Use Standard Drinks/Week Comments Never 0 (1 standard drink = 0.6 oz pur e alcohol) Comments Unknown Sex and Gender Information Value Date Recorded Sex Assigned at Not on file Legal Sex Female 9:32 AM EDT Gender Identity Not on file Sexual Orientation Not on file Last Filed Vital Signs Vital Sign Reading Time Taken Comments Blood Pressure 124/84 02/06/2024 4:24 PM EST Pulse 85 02/06/2024 4:24 PM EST Temperature 36.2 C (97.2 F) 02/06/2024 4:24 PM EST Respiratory Rate - - Oxygen Saturation - - Inhaled Oxygen Concentration - - Weight 68.2 kg (150 lb 6.4 oz) 02/06/2024 4:24 P M EST Height 157.5 cm (5' 2 ) 02/06/2024 4:24 PM EST Body Mass Index 27.51 02/06/2024 4:24 PM EST Plan of Treatment Upcoming Encounters Date Type Department Care Team (Late st Contact Info) Description 01/02/2025 4:15 PM EDT Office Visit [facility] [address] [address] Adrian Esposito MD [address] [address] Health Maintenance Due Date Last Done Comments Pneumococcal Vaccine 50+ (1 of 1 - PCV) 1993 RSV Vaccine - Adults (1 - 1- dose 75+ series) 2018 ANNUAL WELLNESS VISIT 09/29/2023 COVID-19 Vaccine (5 - 2023-2 5 season) 2023 01/25/2021, 05/23/2020, 05/12/2020, Additional history exists INFLUENZA VACCINE 12/12/2024 2024, , 12/06/2022, Additional history exists DXA SCAN 09/28/2025 09/29/2023, 11/09/2022 TDAP/TD VACCINES (2 - Td or Tdap) 09/06/2032 023 ZOSTER VACCINE Completed 02/25/2023, 09/06/2022 Procedures Procedure Name Priority Date/Time Associated Diagnosis Comments SCANNED - DEXA Routine 09/29/2023 4:29 PM EDT from Last 3 Months or Most Recently Relevant to Health Maintenance Results * DEXA Scan (09/29/2023 4:29 PM EDT) Anatomical Region Laterality Modality Other us Historical Provider CHART REVIEW TABS Nell l Result from Last 3 Months or Most Recently Relevant to Health Maintenance Insurance [employer] PPO Care Teams Administrative Office Manager Relationship Specialty Start Date End Date Garry García MD [address] [place], [place] [id number] PCP - General Internal Medicine 10/03/23
[2024-10-09 18:35] LABS: Albumin Level 3.8 g/dl (3.5-5.0); Chloride 104 mmol/L (98-107); Potassium 4.2 mmoL/L (3.5-5.1); Sodium 138 mmol/L (136-145)
[2024-10-09 18:38] LABS: Alanine Aminotransferase 33 U/L (12-78); Albumin/Globulin Ratio 1.2 (1.1-1.8); Alkaline Phosphatase 88 U/L (38-126); Anion Gap 10.2 mEq/L (5-15); Aspartate Amino Transferase 35 U/L (14-36); Bilirubin,Total 0.2 mg/dl (0.2-1.3); Blood Urea Nitrogen 17 mg/dl (7-17); Calcium 9.6 mg/dl (8.4-10.2); Carbon Dioxide 28 mmol/L (22.0-30.0); Creatinine,Serum 0.80 mg/dl (0.52-1.04); Estimated Glomerular Filt Rate 69 ml/min (>60); GFR (African American) 83 ML/MIN (>60); Globulin 3.3 g/dL (1.3-3.2); Glucose 83 mg/dl (74-100); Total Protein,Serum 7.1 g/dl (6.3-8.2)
== END 2024-10-09 23:59 | disposition home or self-care (01) ==
LOC: LAB 15:59
PROVIDERS: PCP Nurse Practitioner Family; Visit Provider Nurse Practitioner Family
DX: R74.01 Elevation of levels of liver transaminase levels (principal)
CPT/HCPCS: 36415; 80053